=== PATIENT | female | born 1960 | race Caucasian/White ===

== ENCOUNTER 2018-11-02 16:43 | Observation (INO) | payer OTHER ==
[2018-11-02 18:00] LABS: Absolute Monocytes 0.6 K/uL (0.1-1.3); Absolute Neutrophil 5.9 K/uL (1.8-8.0); Basophils % 0.8 % (0-1.3); Eosinophils % 2.5 % (0-4.4); Hematocrit 37.2 % (36.0-45.0); Lymphocytes % 22.8 % (15.3-44.8); MPV 8.7 fL (7.6-11.3); Monocytes % 7.1 % (3.3-12.3); RBC Red Blood Cell Count 3.99 M/uL (3.86-4.86)
--- NOTE | 2018-11-02 18:18 | RAD REPORT ---
EXAM DESCRIPTION: CT - Head Brain Wo Cont - 11/02/2018 6:11 pm CLINICAL HISTORY: headache Headache, drowsiness, syncope COMPARISON: <Comparisons> TECHNIQUE: All CT scans are performed using dose optimization technique as appropriate and may inclu de automated exposure control or mA/KV adjustment according to patient size. FINDINGS: No intracranial hemorrhage, hydrocephalus or extra-axial fluid collection.No areas of brai n edema or evidence of midline shift. The paranasal sinuses and mastoids are clear. The calvarium is intact. IMPRESSION: No acute intracranial abnormality.
[2018-11-02 18:26] LABS: Albumin 3.9 g/dL (3.4-5.0); Bilirubin Total 0.2 mg/dL (0.2-1.0); Magnesium 2.2 mg/dL (1.8-2.4); Potassium 3.8 mmol/L (3.5-5.1); Protein, Total 7.6 g/dL (6.4-8.2); Thyroid Stimulating Hormone 1.53 uIU/mL (0.360-3.740)
--- NOTE | 2018-11-02 18:56 | ER ---
Nurse's Notes [facility] Name: Pastora Amador Age: 58 yrs Sex: Female : 1960 Arrival Date: 11/02/2018 Time: 16:48 Bed 15 Private MD: Diagnosis: Syncope and collapse;Headache;Dizziness and giddiness Presentation: 11/02 17:02 Presenting complaint: Direct admit from Dr. Jones for near syncope, headache, and hb dizziness. Pt reports low back pain and dizziness x 1 week, near syncopal episode at Dr. Jones's office today. Transition of care: patient was not received from another setting of care. Onset of symptoms is unknown. Risk Assessment: Do you want to hurt yourself or someone else? Patient reports no desire to harm self or others. Care prior to arrival: None. 17:02 Method Of Arrival: Wheelchair hb 17:02 Acuity: EDY 3 hb Historical: - Allergies: 17:07 Sulfa (Sulfonamide Antibiotics); hb - Immunization history:: Adult Immunizations up to date. - Social history:: Smoking status: Patient/guardian denies using tobacco. - Ebola Screening: : No symptoms or risks identified at this time. Vital Signs: 17:05 BP 173 / 91; Pulse 74; Resp 16; Temp 97.4; Pulse Ox 99% on R/A; Weight 112.49 kg; hb Height 5 ft. 1 in. (154.94 cm); Pain 8/10; 17:05 Body Mass Index 46.86 (112.49 kg, 154.94 cm) hb ED Course: 16:48 Patient arrived in ED. rg4 17:04 Triage completed. hb 17:07 Arm band placed on right wrist. hb 17:10 Xiomara Cates MD is Attending Physician. ma2 17:10 Inserted saline lock: 20 gauge in right antecubital area, using aseptic technique. ae4 Blood collected. 18:52 Gerson Jones MD is Hospitalizing Provider. dw Administered Medications: No medications were administered Outcome: 18:55 Decision to Hospitalize by Provider. dw Signatures: Jo Ann Murphy RN RN dw Baxter, Heather, RN RN Gretchen Olson rg4 Xiomara Cates MD MD ma2 Andres, Festus, RN RN ae4
[2018-11-02 20:10] VITALS: BMI 46.4
[2018-11-02] MEDS ORDERED: ENOXAPARIN 40 MG/0.4 ML SQ ONE (20:55)
[2018-11-02] MEDS ORDERED: ACETAMINOPHEN 500 MG PO PRN (21:00)
[2018-11-02 21:31] LABS: Urine Appearance CLEAR; Urine Bilirubin NEGATIVE (NEG); Urine Blood NEGATIVE (NEG); Urine Color YELLOW; Urine Glucose NEGATIVE (NEG); Urine Protein NEGATIVE (NEG); Urine Urobilinogen 0.2 mg/dL (0.2-1.0); Urine pH 5.5 (5.0-7.0)
[2018-11-02 22:13] LABS: Urine Bacteria >50 /HPF (<20); Urine Culture Reflex Order REFLEXED; Urine RBC <5 /HPF (NONE SEEN)
--- NOTE | 2018-11-03 04:03 | HP ---
Date of Admission: 11/02/2018 Chief Complaint: Not feeling good. History Of Present Illness: Ms. Amador is a very pleasant female patient, came into our office today after she called our office requesting appointment. She was asked to come in as she reported that f or last 1 week, she is not feeling good. The patient describes having pain in her lower back and chele ateral lateral hip area, and some pain in both legs behind her knees and both lower legs below the kn ee. Denies any fall or injury. She has been having hard time walking in last few days. She has jeffrey oing intermittent diarrhea problem, which is nothing new and she has been seeing data scientist, Dr. Pritchett, for that. Denies any abdominal pain, nausea, vomiting. The patient reported that she has been feeling dizzy in last few days when she gets up. She says her blood pressure has gone up somewh at with the change in the blood pressure medication that we made last week. We stopped her amlodipin e because of the leg swelling problem and started her on diuretic, triamterene/HCTZ. Blood pressure at home has been around systolic blood pressure 140, diastolic around 80 range. When she was sitting in the waiting room at office and when office staff called her name to come back to the exam room, s he did not respond to office staff and she stood up, was staring and kind of unresponsive just for a brief time, but did not have any fall or injury. She was unsteady on her feet and required assistanc e, and I saw that problem even while I was trying to help her in the room. She was not able to get u p on exam table. She is having occasional headache lately in last few days. Considering all this dr quispe change in last 1 week, after I examined her, I recommended admission to the hospital for [facility] for further evaluation and management of this problem, and the patient and her , they we re agreeable and after all arrangements completed, she was admitted to the hospital. Past Medical History: Hyperlipidemia, restless leg syndrome, hypertension, sleep apnea, insomnia, os teopenia, osteoarthritis at multiple sites, peripheral neuropathy, and leg edema. Past Surgical History: Carpal tunnel release, hysterectomy, , and neck surgery. Allergies: SULFA CAUSING SKIN IRRITATION. Family History: Significant for hypertension, stroke, COPD, fibromyalgia, congestive heart failure, atrial fibrillation. Social History: Negative for smoking and alcohol use. Review of Systems: [employer]: Positive for dizziness, headache, and near syncope up today. Musculoskeletal: Back pain and l eg pain as mentioned above. All other systems reviewed and negative. Medications: List reviewed. Physical Examination: Vital Signs: At office, vital signs included height 5 feet, weight 248 pounds. Blood pressure was 1 47/79, repeat blood pressure in the office 140/80, temperature 98.7, pulse 66, respiratory rate 15. General: Awake, alert, oriented, not in distress. HEENT: Head atraumatic, normocephalic. Conjunctivae nonerythematous. Sclerae white. Mouth: No th gordon or edema noted. Ears/Nose: No mass, lesion, discharge noted. Neck: Supple. No JVD, lymph nodes, bruit, thyromegaly noted. Lungs: Bilateral good equal air entry. Clear to auscultation. No rhonchi. No rales. Heart: Normal heart sounds. No murmur or gallop. Abdomen: Soft, bowel sounds normal. No guarding, rigidity, tenderness, mass, hepatosplenomegaly, di stention, or bruit noted. Extremities: No leg edema. No calf tenderness. Skin: No rash, ulcer, cellulitis. Lymphatics: No lymph node enlargement in neck, supraclavicular, infraclavicular region. Chest: Unremarkable. External Genitalia: Deferred. Rectal: Deferred. [employer]: The patient is awake, alert, oriented, not in distress. No focal neurological deficit. She do es require assistance to get up from chair to get up and walk. She was not able to get up on the exa m table. She is unsteady on her feet and we are not sure whether it is because of her pain in her ba ck or any other etiology. Laboratory Data: After she was admitted to the hospital, stat blood work showing white count 8.9, he moglobin 11, gone to 12.3, and platelets 306. Sodium 144, potassium 3.8, chloride 114, bicarb 24, BU N 21, creatinine 0.90, glucose 99. Liver function tests normal. TSH 1.53. CAT scan of the head neg ative for any acute findings and this was without contrast. Impression: 1.Near syncope. 2.Headache. 3.Dizziness. 4.Hypertension. 5.Hyperlipidemia. 6.Restless legs syndrome. 7.Sleep apnea. 8.Primary insomnia. 9.Back pain. 10.Osteopenia. 11.Gout. 12.Osteoarthritis at multiple sites. 13.Peripheral neuropathy. Plan: Admit the patient to hospital for further evaluation and management of this problem. The addie ent is appropriate for observation. We will continue home medications per order. I will go ahead an d order further imaging study tomorrow, which will be MRI and we will consult physical therapy. I wi ll see her tomorrow morning for followup and we will monitor overnight for any other problems as we a re not absolutely clear on the etiology of her presenting complaints at this point, and details were discussed with the patient and her at the office. DVT prophylaxis will be given per order. GERRY/NATALY Voice ID: [id number]
[2018-11-03] MEDS: CEFTRIAXONE/SWI 1gm 1 GM/10 ML SYR IV SCH ×2 (08:34→21:52)
[2018-11-03] MEDS: TOPIRAMATE 100 MG PO SCH ×2 (09:00→21:47)
[2018-11-03] MEDS: NAPROXEN SODIUM 220 MG PO SCH ×3 (09:00→21:00)
[2018-11-03] MEDS: RANITIDINE 150 MG PO SCH ×2 (09:00→21:46)
[2018-11-03 09:07] LABS: Folic Acid, (Folate) > 20.0 ng/mL (3.1-17.5)
--- NOTE | 2018-11-03 10:03 | RAD REPORT ---
EXAM DESCRIPTION: XR C Spine W Obliques CLINICAL HISTORY: 58 years Female osteoarthritis TECHNIQUE: Five views of the cervical spine are provided. COMPARISON: No prior exams provided for comparison. FINDINGS: There is no visualized acute cervical fracture or spondylolisthesis. There is mild to mode rate multilevel degenerative disc disease and uncovertebral arthrosis without aggressive osseous lesi on. Mild right neural foraminal narrowing at C5-C6. No prevertebral soft tissue swelling. The visualized lung apices are clear. IMPRESSION: No acute cervical spine injury. Electronically signed by: Kendal Landry MD 11/02/2018 10:25 PM CDT Due to temporary technical issues with the PACS/Fluency reporting system, reports are being signed by the in house radiologist as a courtesy to ensure prompt reporting. The interpreting radiologist is f ully responsible for the content of the report.
--- NOTE | 2018-11-03 10:04 | RAD REPORT ---
EXAM DESCRIPTION: XR Spine Lumbar W obliques CLINICAL HISTORY: 58 years Female back pain TECHNIQUE: Six views of the lumbar spine were submitted. COMPARISON: No prior exams provided for comparison. FINDINGS: There are five true lumbar vertebral bodies. There is no acute lumbar fracture. There is m ild to moderate multilevel degenerative disc disease most pronounced at L3-L4 and L4-L5. Severe lower lumbar facet arthrosis. Grade 1 anterolisthesis of L4 on L5. The sacroiliac joints are unremarkable. No aggressive osseous lesion. IMPRESSION: Chronic multilevel degenerative changes in the lumbar spine most pronounced at L4-L5. No acute fracture. Electronically signed by: Kendla Landry MD 11/02/2018 10:27 PM CDT Due to temporary technical issues with the PACS/Fluency reporting system, reports are being signed by the in house radiologist as a courtesy to ensure prompt reporting. The interpreting radiologist is f ully responsible for the content of the report.
[2018-11-03] MEDS: ASPIRIN 81 MG PO SCH (11:06)
[2018-11-03] MEDS: TRIAMTERENE HCTZ PO SCH (11:08)
[2018-11-03] MEDS ORDERED: ENOXAPARIN 40 MG/0.4 ML SQ SCH (17:00)
[2018-11-04] MEDS: NAPROXEN SODIUM 220 MG PO SCH (05:59)
[2018-11-04] MEDS: RANITIDINE 150 MG PO SCH (08:51)
[2018-11-04] MEDS: TRIAMTERENE HCTZ PO SCH (08:52)
[2018-11-04] MEDS: ASPIRIN 81 MG PO SCH (08:53)
[2018-11-04] MEDS: TOPIRAMATE 100 MG PO SCH (08:54)
[2018-11-04] MEDS: CEFTRIAXONE/SWI 1gm 1 GM/10 ML SYR IV SCH (08:58)
[2018-11-04 11:23] VITALS: O2SAT 98
--- NOTE | 2018-11-04 13:24 | RAD REPORT ---
EXAM DESCRIPTION: MRI - Brain W/Wo Cont - 11/03/2018 9:13 pm CLINICAL HISTORY: Ataxia COMPARISON: November 02, [address] TECHNIQUE: Axial, sagittal, and coronal magnetic images of the brain were obtained. 20 cc MultiHance administered intravenously FINDINGS: Several areas of increased signal are present within predominantly the deep white matter b ilaterally. Largest measure 7 millimeters. If these areas do not enhance. The ventricles are normal in caliber. Diffusion-weighted sequences do not demonstrate evidence of an acute infarction. An extra-axial fluid collection is not noted. Fluid within the sinuses/mastoids is not seen IMPRESSION: Mild to moderate signal within prominently deep white matter bilaterally may represent i schemic changes secondary to small vessel disease. A demyelinating process can also result in this ap pearance.
--- NOTE | 2018-11-04 13:36 | RAD REPORT ---
EXAM DESCRIPTION: MRI - Lumbar Spine Wo Con - 11/03/2018 9:14 pm CLINICAL HISTORY: Ataxia and radiculopathy COMPARISON: None. TECHNIQUE: Sagittal T1, T2 and STIR weighted sequences were obtained. Axial T1 and T2 sequences were obtained through the lumbar disc levels. FINDINGS: Some of the images are degraded by patient motion artifact Mild to moderate anterior subluxation of L3 on L4 and L4 on L5. Mild spondylosis L1-2 Small disc bulge L2-3. Mild ligamentum flavum and facet hypertrophy. Mild narrowing of the neural for christopher bilaterally. Small disc bulge, ligamentum flavum and facet hypertrophy L3-4. Thecal sac measures 10 millimeters. M ild to moderate narrowing of the neural foramina Disc bulge, ligamentum flavum and facet hypertrophy L4-5. Soft tissue fills the left neural foramina. Mild spondylosis L5-S1 IMPRESSION: Soft tissue fills the left neural foramina at L4-5. This is suspected to be a combinatio n of the disc herniation and facet hypertrophy. It is recommended that the patient have an MRI with c ontrast for further evaluation.
--- NOTE | 2018-11-04 13:44 | RAD REPORT ---
EXAM DESCRIPTION: MRI - C Spine Wo Cont - 11/03/2018 9:14 pm CLINICAL HISTORY: Radiculopathy COMPARISON: 2014 TECHNIQUE: Magnetic resonance imaging of the cervical spine was obtained with coronal and sagittal r econstruction FINDINGS: Some images are degraded by patient motion artifact C2-3 is unremarkable. Small central disc herniation C3-4. Small to moderate central disc herniation C4-5 Mild spondylosis C5-6. Disc bulge and osteophytes C6-7 resulting in moderate narrowing of the left and mild narrowing of the right neural foramina C7-T1 unremarkable Evaluation of the spinal cord is limited secondary to patient motion artifact. No gross abnormality i s suspected. . IMPRESSION: Small central disc herniations C3-4 Small to moderate central disc herniation C4-5 Spondylosis C6-7 resulting in moderate left foraminal stenosis
[2018-11-04 14:57] VITALS: BP 120/64; TEMP 97.6
--- NOTE | 2018-11-04 18:29 | RAD REPORT ---
EXAM DESCRIPTION: MRI - Spine Lumbar W/Cont - 11/04/2018 3:12 pm CLINICAL HISTORY: f/u of lumbar mri Radiculopathy, back pain COMPARISON: Lumbar Spine Wo Con dated 11/03/2018 FINDINGS: Prominent facet hypertrophy is present on the left at the L4-5 level. There is mild enhanc ement of the exiting nerve root at this level, which is typically not a pathologic finding. No pathologic enhancement is seen to suggest tumor or infection throughout the lumbar levels. IMPRESSION: No pathologic enhancement seen to suggest tumor or infection.
--- NOTE | 2018-11-05 02:00 | PN ---
Date of Progress Note: 11/03/2018 Subjective: The patient was seen this morning for followup. She continues to have some headache pro blem and lower back pain radiating to her leg. Denies any other new complaints. The patient reporte d today that about 20 years ago, she had a grand mal and petit mal seizure, and she was on anticonvul quintin medication, has not taken any such medication for last 15 years, and with near syncopal episode she had at office yesterday, she is concerned about that. Her CAT scan of the head was negative. Objective: Vital Signs: Reviewed. HEENT: Unremarkable. Lungs: Clear to auscultation. Heart: Sounds normal. Abdomen: Soft. Bowel sounds normal. No guarding, rigidity, tenderness, distention. Extremities: No leg edema. Laboratory Data: Urinalysis; 2+ leukocyte esterase, bacteria more than 50, wbc's 10 to 20. Impression: 1.Urinary tract infection, present upon admission. 2.Headache. 3.Lumbar radiculopathy. 4.Hypertension. Plan: We will go ahead and start the patient on IV antibiotics. Follow up on urine culture results. MRI of brain with contrast and MRI of cervical spine and lumbar spine without contrast was ordered today. We will follow up on the results. Consult Dr. Marc from Neurology Service and EEG was ordered. Details and plan of treatment discussed with the patient. GERRY/MODL Voice ID: [id number] Report ID: [id number]
--- NOTE | 2018-11-06 14:04 | DS ---
Date of Discharge: 11/04/2018 Disposition: Discharged to go home. Physical Examination: HEENT: Unremarkable. Lungs: Clear to auscultation. Heart: Sounds normal. Abdomen: Soft, bowel sounds normal. No guarding, rigidity, tenderness, or distention. Extremities: No leg edema. Discharge Medications And Instructions: 1.Continue all prior home medications. 2.Take Cipro 500 mg twice a day for 1 week and prednisone 10 mg tablet. The patient to take 3 table ts daily for 3 days, then 2 tablets daily for 3 days, then 1 tablet daily for 3 days, then stop. 3.Follow up at my office in 1 week. Hospital Course: Ms. Amador is a very pleasant female patient, came into our office not feeling good , and after she was evaluated, she was admitted to the hospital. Please see dictated H and P for mor e information. The patient was admitted to the hospital with near syncope, headache, dizziness. Aft er she was admitted, routine blood work was done which was unremarkable. CAT scan of the brain was n egative for any acute intracranial changes. Neurology consultation was obtained from Dr. Marc. We did order EEG, which was done, result was pending by the time we discharged her, and we will follo w up on outpatient basis. MRI of the brain was done to rule out any underlying stroke, and it came b ack negative for any acute intracranial changes. We also did MRI of cervical spine and lumbar spine because of her symptoms as noted in history and physical exam. Her MRI of the cervical spine showed a couple of small herniated disks with changes of cervical spondylosis. An MRI of the lumbar spine a lso showed 1 herniated disk, but there was some area of abnormality that radiologist suggested to do MRI of lumbar spine with contrast to rule out any tumor, and this particular test was done, and it wa s negative for any kind of growth or tumor. Her urinalysis was abnormal consistent with urinary trac t infection. She was given IV Rocephin in the hospital, and I will follow up on the culture result, which was pending at the time of discharge, and she was sent home with empiric oral antibiotics Cipro . Depending on how she does on outpatient basis, we will make a decision regarding referring her to neurosurgeon. Final Diagnoses: 1.Near syncope. 2.Urinary tract infection. 3.Lumbar radiculopathy. 4.Cervical spondylosis. 5.Headache. 6.Dizziness. 7.Hypertension. 8.Hyperlipidemia. 9.Restless legs syndrome. 10.Sleep apnea. 11.Primary insomnia. 12.Osteopenia. 13.Gout. 14.Osteoarthritis, multiple sites. 15.Peripheral neuropathy. GERRY/MODL Voice ID: [id number] Report ID: [id number]
--- NOTE | 2018-11-10 09:09 | EEG ---
CHART: [id number] TEST ID#: [id number] DATE OF STUDY: 11/03/2018 THE EEG WAS RECORDED PORTABLE IN THE PATIENTS ROOM ON A 17 CHANNEL MACHINE. ELECTRODES WERE APPLIED IN THE USUAL MANNER USING THE INTERNATIONAL 10-20 SYSTEM. THE WAKING BACKGROUND RHYTHM IN THIS RECORD CONSISTS OF WELL DEVELOPED AND WELL ORGANIZED WAVES OF 9.5 HZ., MAXIMAL IN THE POSTERIOR HEAD REGIONS WHICH ATTENUATE NORMALLY WITH EYE OPENING. LOW-VOLTAGE 18-22 HZ ACTIVITY IS EXPRESSED IN THE FRONTAL REGIONS. THERE ARE NO FOCAL OR LATERALIZING FEATURES. NO EPILEPTIFORM ACTIVITY APPEARS. SLEEP OCCURRED NATURALLY. IN ADDTION NORMAL SLEEP PATTERNS ARE PRESENT. HYPERVENTILATION WAS NOT PERFORMED. PHOTIC STIMULATION PRODUCED FAIR DRIVING BILATERALLY. IMPRESSION: NORMAL EEG FOR THE AGE OF THE PATIENT IN [place], DROWSINESS AND SLEEP.
== END 2018-11-04 16:03 | disposition home or self-care (01) ==
LOC: ER 16:43 → ERHOLD 16:44 → 2ND 19:11
PROVIDERS: ADMIT Internal Medicine; ATTEND Internal Medicine
DX: R55 Syncope and collapse (principal); N39.0 Urinary tract infection, site not specified; M51.16 Intervertebral disc disorders with radiculopathy, lumbar region; M47.812 Spondylosis without myelopathy or radiculopathy, cervical region; M50.31 Other cervical disc degeneration, high cervical region; M48.8X6 Other specified spondylopathies, lumbar region; R51 Headache; R42 Dizziness and giddiness; I10 Essential (primary) hypertension; E78.5 Hyperlipidemia, unspecified; G25.81 Restless legs syndrome; G47.30 Sleep apnea, unspecified; F51.01 Primary insomnia; M85.80 Other specified disorders of bone density and structure, unspecified site; M10.9 Gout, unspecified; M15.9 Polyosteoarthritis, unspecified; G62.9 Polyneuropathy, unspecified
CPT/HCPCS: 36415; 70450; 70553; 72050; 72110; 72141; 72148; 72149; 80053; 81001; 82607; 82746; 83605; 83735; 84145; 84443; 85025; 87077; 87086; 87088; 87186; 95819; 97163; 99283; A9577; G0378; J0696; J1650

== ENCOUNTER 2021-12-13 14:50 | Emergency (ER) | payer OTHER ==
--- NOTE | 2021-12-13 15:56 | RAD REPORT ---
EXAM DESCRIPTION: Lucas Single View12/13/2021 3:40 pm CLINICAL HISTORY: Shortness of breath COMPARISON: 2019 FINDINGS: The lungs appear clear of acute infiltrate. The heart is normal size IMPRESSION: No acute abnormalities displayed
[2021-12-13 15:57] LABS: Absolute Lymphocytes (CBC) 1.6 K/uL (0.7-4.9); Hematocrit 37.6 % (36.0-45.0); Lymphocytes % 18.8 % (15.3-44.8); MCV 94.1 fL (80-100); MPV 7.7 fL (7.6-11.3)
[2021-12-13 16:11] LABS: ALT/SGPT 19 U/L (12-78); AST/SGOT 14 U/L (15-37); Albumin 3.5 g/dL (3.4-5.0); Alkaline Phosphatase 130 U/L (45-117); BUN Blood Urea Nitrogen 27 mg/dL (7-18); Bicarbonate 25 mmol/L (21-32); Bilirubin Total 0.3 mg/dL (0.2-1.0); Glomerular Filtration Rate 51 ml/min (=/>90); Glucose Level 133 mg/dL (74-106); NT PRO-BNP 295 pg/mL (<125); Potassium 3.8 mmol/L (3.5-5.1); Protein, Total 7.4 g/dL (6.4-8.2); Sodium Level 139 mmol/L (136-145); Troponin High Sensitivity 9.5 pg/mL (<58.9)
[2021-12-13 16:19] LABS: Bilirubin Direct < 0.1 mg/dL (0-0.2)
--- NOTE | 2021-12-13 17:22 | RAD REPORT ---
EXAM DESCRIPTION: USExtrem Venous W Compress Bil12/13/2021 5:09 pm CLINICAL HISTORY: Leg swelling COMPARISON: 2019 FINDINGS: The common femoral, superficial femoral, popliteal and posterior tibial veins bilaterally are compressible and demonstrate augmentation. Doppler demonstrates good flow. Grayscale, color and spectral analysis performed on all vessels IMPRESSION: No evidence of deep venous thrombosis involving either lower extremity.
--- NOTE | 2021-12-13 17:44 | RAD REPORT ---
EXAM DESCRIPTION: CT - Chest For Pe Angio - 12/13/2021 5:32 pm CLINICAL HISTORY: sob COMPARISON: None. TECHNIQUE: Dynamically enhanced axial 3 mm thick images of the chest were obtained during administra tion of <100> mL Isovue 370 IV contrast. Coronal and oblique reconstruction images were generated and reviewed. Exam utilizes a protocol for optimal evaluation of pulmonary arterial tree. Maximum intensity projections 3D imaging was utilized All CT scans are performed using dose optimization technique as appropriate and may include automated exposure control or mA/KV adjustment according to patient size. FINDINGS: A pulmonary embolus is not seen. A thoracic aortic aneurysm is not noted. A pleural effusion is not seen. A pericardial effusion is not seen. A lung consolidation is not present. Aberrant right subclavian artery IMPRESSION: Negative for a pulmonary embolism.
--- NOTE | 2021-12-13 18:00 | ER ---
Nurse's Notes [facility] Name: Pastora Amador Age: 61 yrs Sex: Female : 1960 Arrival Date: 12/13/2021 Time: 14:51 Bed 20 Private MD: Nina Jones C Diagnosis: Essential (primary) hypertension Presentation: 12/13 15:25 Chief complaint: Patient states: Patient reports leg swelling, sob for years worse x 2 jg9 months, elevated bp this week. Coronavirus screen: Vaccine status: Patient reports receiving the 2nd dose of the covid vaccine. Ebola Screen: Patient negative for fever greater than or equal to 101.5 degrees Fahrenheit, and additional compatible Ebola Virus Disease symptoms Patient denies exposure to infectious person. Patient denies travel to an Ebola-affected area in the 21 days before illness onset. Initial Sepsis Screen: Does the patient meet any 2 criteria? No. Patient's initial sepsis screen is negative. Does the patient have a suspected source of infection? No. Patient's initial sepsis screen is negative. Risk Assessment: Do you want to hurt yourself or someone else? Patient reports no desire to harm self or others. Onset of symptoms is unknown. 15:25 Method Of Arrival: Ambulatory 9 15:25 Acuity: EDY 3 jg9 Triage Assessment: 15:25 General: Appears in no apparent distress. Behavior is calm, cooperative. Pain: jg9 Complains of pain in anterior aspect of left shoulder and back Pain currently is 5 out of 10 on a pain scale. Quality of pain is described as. 15:29 Respiratory: Reports shortness of breath at rest on exertion Onset: The jg9 symptoms/episode began/occurred gradually, the patient has mild shortness of breath. Historical: - Allergies: 15:27 Sulfa (Sulfonamide Antibiotics); jg9 - Home Meds: 15:27 allopurinol 300 mg Oral tab 1 tab once DAILY. pt reports that her PCP told her to only jg9 take this medicaitno every other day, but instead has been taking half a dose daily. [Active]; amoxicillin 875 mg Oral tab 1 tab every 12 hours [Active]; baclofen 20 mg Oral tab 1 tab daily [Active]; guanfacine 2 mg Oral tab 1 tab twice a day [Active]; irbesartan 300 mg Oral tab 1 tab once daily [Active]; [place] 5-325 mg Oral tab TID prn [Active]; simvastatin 20 mg Oral tab 1 tab once daily [Active]; topiramate 150 mg Oral CSpX 1 cap once daily [Active]; - PMHx: 15:27 chronic back pain; Fibromyalgia; Gout; High Cholesterol; Hypertension; restless leg jg9 syndrome; - Immunization history:: Adult Immunizations up to date. - Social history:: Smoking status: Patient denies any tobacco usage or history of. Screenin:29 Abuse screen: Denies threats or abuse. Denies injuries from another. Nutritional jg9 screening: No deficits noted. Tuberculosis screening: No symptoms or risk factors identified. Fall Risk None identified. Assessment: 15:29 Cardiovascular: No deficits noted. Rhythm is sinus rhythm. Respiratory: Airway is jg9 patent Trachea Respiratory effort is even, unlabored, Breath sounds are diminished bilaterally. 15:29 General: Appears in no apparent distress. comfortable, Behavior is calm, cooperative. em6 Pain: Complains of pain in low back area, right leg and left leg. Neuro: Dahl Agitation-Sedation Scale (RASS): 0 - Alert and Calm Level of Consciousness is awake, alert, obeys commands, Oriented to person, place, time, situation, Reports dizziness, headache frontal area. Cardiovascular: Reports shortness of breath, Heart tones S1 S2 present Capillary refill < 3 seconds Patient's skin is warm and dry. Chest pain is denied. Respiratory: Reports shortness of breath. GI: No signs and/or symptoms were reported involving the gastrointestinal system. : No signs and/or symptoms were reported regarding the genitourinary system. EENT: No signs and/or symptoms were reported regarding the EENT system. Derm: No signs and/or symptoms reported regarding the dermatologic system. Musculoskeletal: Reports bilateral swelling to lower extremities. 16:30 Reassessment: No changes from previously documented assessment. Patient and/or family em6 updated on plan of care and expected duration. Pain level reassessed. Patient is alert, oriented x 3, equal unlabored respirations, skin warm/dry/pink. 17:00 Reassessment: No changes from previously documented assessment. Patient and/or family em6 updated on plan of care and expected duration. Pain level reassessed. Patient is alert, oriented x 3, equal unlabored respirations, skin warm/dry/pink. 18:00 Reassessment: No changes from previously documented assessment. Patient and/or family em6 updated on plan of care and expected duration. Pain level reassessed. Patient is alert, oriented x 3, equal unlabored respirations, skin warm/dry/pink. provider at bedside discussing plan of care.. Vital Signs: 15:25 BP 134 / 58; Pulse 89; Resp 22 S; Temp 97.7(TE); Pulse Ox 99% on R/A; Weight 125.65 kg jg9 (R); Height 5 ft. 0 in. (152.40 cm); Pain 5/10; 16:30 BP 127 / 59; Pulse 73; Resp 17; Pulse Ox 97% on R/A; em6 18:02 BP 128 / 52; Pulse 72; Pulse Ox 98% on R/A; em6 15:25 Body Mass Index 54.10 (125.65 kg, 152.40 cm) jg9 ED Course: 14:51 Patient arrived in ED. am2 14:51 Omero Alatorre MD is Private Physician. am2 14:51 Nina Jones MD is Private Physician. am2 14:52 [facility] Acosta [facility]C [facility]. kb 14:52 Juan García DO is Attending Physician. kb 15:27 Triage completed. jg9 15:29 Arm band placed on right wrist. jg9 15:29 Patient has correct armband on for positive identification. Bed in low position. Call jg9 light in reach. Side rails up X 1. 15:42 XRAY Chest (1 view) In Process Unspecified. EDMS 15:47 Inserted saline lock: 20 gauge in right forearm, using aseptic technique. Blood mb7 collected. 15:50 Pete Head, RN is Primary Nurse. jd3 17:11 US Extremity Venous W Compression Jagjit In Process Unspecified. EDMS 17:34 CT Chest For PE Angio In Process Unspecified. EDMS 18:39 No provider procedures requiring assistance completed. IV discontinued, intact, em6 bleeding controlled, No redness/swelling at site. Pressure dressing applied. Administered Medications: No medications were administered Medication: 16:55 VIS not applicable for this client. em6 Outcome: 18:00 Discharge ordered by . kb 18:38 Discharged to home via wheelchair, with family. em6 18:38 Condition: stable 18:38 Discharge instructions given to patient, Instructed on discharge instructions, follow up and referral plans. Demonstrated understanding of instructions, follow-up care. 18:40 Patient left the ED. em6 Signatures: Dispatcher [employer] EDMS Tino Acostaistin, GLUE CLAMP OPERATOR-C GLUE CLAMP OPERATOR-Ckb Dorie Farnsworth am2 Pete Head RN RN jd3 Lisa Goldsmith mb7 Lilly Serna RN RN jg9 Kacy Pires RN RN em6 Corrections: (The following items were deleted from the chart) 16:54 15:40 General: Appears in no apparent distress. comfortable, Behavior is calm, em6 cooperative, em6 16:54 15:40 Pain: Complains of pain in low back area, right leg and left leg em6 em6 16:54 15:40 Neuro: Dahl Agitation-Sedation Scale (RASS): 0 - Alert and Calm Level of em6 Consciousness is awake, alert, obeys commands, Oriented to person, place, time, situation, Reports dizziness, headache frontal area, em6 16:54 15:40 Cardiovascular: Reports shortness of breath, Heart tones S1 S2 present Capillary em6 refill < 3 seconds Patient's skin is warm and dry. Edema is absent. Chest pain is denied em6 16:54 15:40 Respiratory: Reports shortness of breath em6 em6 16:54 15:40 GI: No signs and/or symptoms were reported involving the gastrointestinal system. em6 em6 16:54 15:40 : No signs and/or symptoms were reported regarding the genitourinary system. em6em6 16:54 15:40 EENT: No signs and/or symptoms were reported regarding the EENT system. em6 em6 16:54 15:40 Derm: No signs and/or symptoms reported regarding the dermatologic system. em6 em6 16:54 15:40 Musculoskeletal: No signs and/or symptoms reported regarding the musculoskeletal em6 system. em6 16:54 15:40 Respiratory: Reports shortness of breath Airway is patent Respiratory: Reports em6 shortness of breath Airway is patent em6 16:54 15:40 Respiratory: em6 em6 16:54 15:40 Reassessment: No changes from previously documented assessment. Patient and/or em6 family updated on plan of care and expected duration. Pain level reassessed. em6 12/14 09:12/13 15:29 Cardiovascular: Reports shortness of breath, Heart tones S1 S2 present em6 Capillary refill < 3 seconds Patient's skin is warm and dry. Edema is absent. Chest pain is denied em6 12/14 09:02 12/13 15:29 Musculoskeletal: No signs and/or symptoms reported regarding the em6 musculoskeletal system. em6
--- NOTE | 2021-12-13 18:00 | EDPHYS ---
Physician Documentation [facility] Name: Pastora Amador Age: 61 yrs Sex: Female : 1960 Arrival Date: 12/13/2021 Time: 14:51 Bed 20 Private MD: Nina Jones C ED Physician Juan García HPI: 12/13 23:43 This 61 yrs old Female presents to ER via Ambulatory with complaints of Leg Swelling, kb Shortness Of Breath, High Blood Pressure. 23:44 The patient has shortness of breath with light activity. Onset: The symptoms/episode kb began/occurred years, but worse over the last few months. Duration: The symptoms are continuous. The patient's shortness of breath is aggravated by exertion, is alleviated by rest. Associated signs and symptoms: The patient has no apparent associated signs or symptoms. Severity of symptoms: At their worst the symptoms were moderate in the emergency department the symptoms have improved. The patient has experienced similar episodes in the past. The patient has not recently seen a physician. Pt reports shortness of breath on exertion and lower extremity swelling for years, but worse over the last 2 months. States she has been seen by Dr Jones and ssrs developer for this multiple times but nothing has been found. States she has had an echo that was normal. Wind Instrument Repairer told her there was nothing wrong with her heart. States she was talking to someone today and told them about her symptoms so they suggested she come get checked for a blood clot because she has a bruise on her leg. Also reports high blood pressure this week. States her ssrs developer has been changing her medication since August trying to find something that controls her blood pressure, but nothing has been able to help for long. Historical: - Allergies: 15:27 Sulfa (Sulfonamide Antibiotics); jg9 - Home Meds: 15:27 allopurinol 300 mg Oral tab 1 tab once DAILY. pt reports that her PCP told her to only jg9 take this medicaitno every other day, but instead has been taking half a dose daily. [Active]; amoxicillin 875 mg Oral tab 1 tab every 12 hours [Active]; baclofen 20 mg Oral tab 1 tab daily [Active]; guanfacine 2 mg Oral tab 1 tab twice a day [Active]; irbesartan 300 mg Oral tab 1 tab once daily [Active]; [place] 5-325 mg Oral tab TID prn [Active]; simvastatin 20 mg Oral tab 1 tab once daily [Active]; topiramate 150 mg Oral CSpX 1 cap once daily [Active]; - PMHx: 15:27 chronic back pain; Fibromyalgia; Gout; High Cholesterol; Hypertension; restless leg jg9 syndrome; - Immunization history:: Adult Immunizations up to date. - Social history:: Smoking status: Patient denies any tobacco usage or history of. ROS: 23:43 Constitutional: Negative for fever, chills, and weight loss. kb 23:43 Cardiovascular: Positive for edema. 23:43 Respiratory: Positive for dyspnea on exertion. 23:43 All other systems are negative. Exam: 23:43 Constitutional: This is a well developed, well nourished patient who is awake, alert, kb and in no acute distress. Head/Face: Normocephalic, atraumatic. ENT: Moist Mucous membranes Cardiovascular: Regular rate and rhythm with a normal S1 and S2. No gallops, murmurs, or rubs. No pulse deficits. Respiratory: Respirations even and unlabored. No increased work of breathing. Talking in full sentences Abdomen/GI: Soft, non-tender. No distention Skin: Warm, dry with normal turgor. Normal color. MS/ Extremity: Pulses equal, no cyanosis. Neurovascular intact. Full, normal range of motion. Neuro: Awake and alert, GCS 15, oriented to person, place, time, and situation. Moves all extremities. Normal gait. Psych: Awake, alert, with orientation to person, place and time. Behavior, mood, and affect are within normal limits. 23:43 ECG was reviewed by the Attending Physician. Vital Signs: 15:25 BP 134 / 58; Pulse 89; Resp 22 S; Temp 97.7(TE); Pulse Ox 99% on R/A; Weight 125.65 kg 9 (R); Height 5 ft. 0 in. (152.40 cm); Pain 5/10; 16:30 BP 127 / 59; Pulse 73; Resp 17; Pulse Ox 97% on R/A; em6 18:02 BP 128 / 52; Pulse 72; Pulse Ox 98% on R/A; em6 15:25 Body Mass Index 54.10 (125.65 kg, 152.40 cm) jg9 MDM: 14:54 Patient medically screened. kb 17:46 Data reviewed: vital signs, nurses notes. Data interpreted: Pulse oximetry: on room air kb is 97 %. Interpretation: normal. Counseling: I had a detailed discussion with the patient and/or guardian regarding: the historical points, exam findings, and any diagnostic results supporting the discharge/admit diagnosis, lab results, radiology results, the need for outpatient follow up, a ssrs developer, a family practitioner, to return to the emergency department if symptoms worsen or persist or if there are any questions or concerns that arise at home. 23:44 ED course: Pt has appt scheduled for next week with ssrs developer that has been kb adjusting htn medication trying to find one that better controls bp. . 12/13 15:13 Order name: Basic Metabolic Panel; Complete Time: 16:22 kb 12/13 15:13 Order name: CBC with Diff; Complete Time: 16:07 kb 12/13 15:13 Order name: D-Dimer; Complete Time: 16:18 kb 12/13 15:13 Order name: LFT's; Complete Time: 16:22 kb 12/13 15:13 Order name: NT PRO-BNP; Complete Time: 16:22 kb 12/13 15:13 Order name: Troponin HS; Complete Time: 16:22 kb 12/13 15:13 Order name: XRAY Chest (1 view); Complete Time: 16:07 kb 12/13 15:13 Order name: EKG; Complete Time: 15:14 kb 12/13 15:13 Order name: Cardiac monitoring; Complete Time: 15:50 kb 12/13 15:13 Order name: EKG - Nurse/Tech; Complete Time: 15:53 kb 12/13 15:13 Order name: IV Saline Lock; Complete Time: 15:47 kb 12/13 15:13 Order name: Labs collected and sent; Complete Time: 15:47 kb 12/13 15:13 Order name: US Extremity Venous W Compression Jagjit; Complete Time: 17:35 kb 12/13 16:13 Order name: CT Chest For PE Angio; Complete Time: 17:45 kb 12/13 15:13 Order name: O2 Per Protocol; Complete Time: 15:50 kb 12/13 15:13 Order name: O2 Sat Monitoring; Complete Time: 15:50 kb EC:43 Rate is 68 beats/min. Rhythm is regular. QRS [place] is Normal. IA interval is normal at kb 156 msec. QRS interval is normal at 80 msec. QT interval is normal at 444 msec. Administered Medications: No medications were administered Disposition: 18:56 Co-signature as Attending Physician, Juan García DO I was immediately available on-site ms3 in the Emergency Department for consultation in the care of the patient.. Disposition Summary: 12/13/21 18:00 Discharge Ordered Location: Home kb Condition: Stable kb Diagnosis - Essential (primary) hypertension kb Followup: kb - With: Emergency Department - When: As needed - Reason: Worsening of condition Followup: kb - With: Private Physician - When: 2 - 3 days - Reason: Recheck today's complaints, Continuance of care, Re-evaluation by your physician Discharge Instructions: - Discharge Summary Sheet kb - Hypertension, Adult, [id number] kb Forms: - Medication Reconciliation Form kb - Thank You Letter kb - Antibiotic Education kb - Prescription Opioid Use kb Signatures: Dispatcher [employer] EDLola Cooper, GM-Mandy WORRELL-Juan Fairbanks DO DO ms3 Lilly Serna, RN RN jg9
[2021-12-13 18:50] VITALS: TEMP 97.7
[2021-12-13 18:53] VITALS: BP 128/52; O2SAT 98
--- NOTE | 2021-12-16 13:55 | EKG ---
Test Date: 2021-12-13 Test Time: 16:05:46 [employer]p Public [employer]: ALEX MEASUREMENT RESULTS: Intervals: Rate: 68 AL: 156 QRSD: 80 QT: 418 QTc: 444 [place]: P: 35 AL: 156 QRS: 57 T: 43 INTERPRETIVE STATEMENTS: Normal sinus rhythm Normal ECG Compared to ECG 04/14/2017 09:24:37 Ventricular premature complex(es) no longer present Electronically Signed On 12-16-21 13:48:41 CDT by Guero Sparks
== END 2021-12-13 18:40 | disposition home or self-care (01) ==
LOC: ER 14:50
DX: I10 Essential (primary) hypertension (principal); R06.02 Shortness of breath; E78.00 Pure hypercholesterolemia, unspecified; Z88.2 Allergy status to sulfonamides
CPT/HCPCS: 85025; 80048; 36415; 85379; 80076; 84484; 83880; 71275; 71045; 93970; Q9967; 93005

== ENCOUNTER 2023-01-10 03:20 | Emergency (ER) | payer OTHER ==
--- OUTSIDE RECORDS SUMMARY | 2023-01-10 03:25 | XMS REPORT | Continuity of Care Document ---
:1960 Author Organization [facility] t Address [address] [place] [address] Care Team Providers Name Role Phone Gerson Jones MD Primary Care Physician Elliott Banks Attending Clinician Unavailable Julián Attending Clinician Unavailable Emmanuel Cho Attending Clinician Unavailable Naihd Leigh Attending Clinician Unavailable Anthony Frank Attending Clinician Unavailable Maryana Estes DO Attending Clinician JORGE PERSAUD Attending Clinician Unavailable FIDE WEST Attending Clinician Unavailable MD FIDE WEST Attending Clinician Unavailable Colby Solares Attending Clinician Unavailable Kendra Ohara Attending Clinician Unavailable Julián Admitting Clinician Unavailable Anthony Frank Admitting Clinician Unavailable Nahid Leigh Admitting Clinician Unavailable FIDE WEST Admitting Clinician Unavailable MD FIDE WEST Admitting Clinician Unavailable Physician, No Primary or Family Admitting Clinician UnavailKendra Vasquez Admitting Clinician Unavailable Payers Payer Name Policy Type Policy Number Effective Date Expiration Date Alisa patrick AETNA [id number] 2018 00:00:00 Problems Condition Condition Condition Status Onset Resolution Last Treating Co mments Source Name Details Category Date Date Treatment Clinician Date 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 Peripheral 3 Or thope neuropathy Neuropathy 00:00: di c 00 Sports [facility] Lumbar Lumbar Problem Active Deisy radiculopa Radiculopa 3- Or thope thy thy 00:00: dic 00 Sports Medic[facility] e Lumbar Lumbar Problem 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 00:00: dic 00 Sports Medicin e Acute low Acute Low Problem Active Aza nettie back pain Back Pain 3- Orth ope 00:00: dic 00 Sports Medicin e Pain of Pain of Problem Active Deisy left knee Left Knee 3 Orth ope joint Joint 00:00: dic 00 Sports Medicin e Replacemen Replacemen Problem Active 2018-06 A zalea t of right t of Right 2-10 Or thope knee joint Knee Joint 00:00: di c 00 Sports Medicin e Obesity Obesity Problem Active 2018-06 Deisy 1-25 Orthope 00:00: dic 00 Sports Medicin e Idiopathic Idiopathic Problem Active 2018-06 A zalea osteoarthr Osteoarthr 1-12 Or thope itis itis 00:00: dic 00 Sports Medicin e Hand pain Hand Pain Problem Active 2018-06 Aza nettie 0-15 Orthope 00:00: dic 00 Sports Medicin e Knee pain Knee Pain Problem Active 2018-06 Aza nettie 0-15 Orthope 00:00: dic 00 Sports Medicin e Tear of Tear of Problem Active 2018-06 Deisy medial Medial 0-08 Orthope meniscus Meniscus 00:00: dic of knee of Knee 00 Sports Medicin e Tear of Tear of Problem Active 2018-06 Deisy lateral Lateral 0-08 Orthope meniscus Meniscus 00:00: dic of knee of Knee 00 Sports Medicin e Synovitis Synovitis Problem Active Aza nettie of joint of Joint 03-03 Orthop e of right of Right 00:00: dic knee Knee 00 Sports Medicin e Loose body Loose Body Problem Active A zalea in right in Right 03-03 Orthop e knee joint Knee Joint 00:00: di c 00 Sports Medicin e Chondromal Chondromal Problem Active A zalea acia of acia of 03-03 Orthope right Right 00:00: dic patella Patella 00 Sports Medicin e 723.0 723.0 Diagnosis Active 2010-10-18 Mem oria Active 10-11 12:40:00 l 10/11/2010 00:00: Isai cameron 00 [facility] Fibromyalg Fibromyal Problem Active 2010-10-21 Memoria ia lia Active 08:01:15 l Problem [place] 10/21/2010 [facility] Hypertensi Hypertens Problem Active 2010-10-21 Memoria on ion Active 08:01:15 l Problem [place] 10/21/2010 [facility] Neck pain Neck pain Problem Active 2010-10-21 Memoria Active 08:01:15 l Problem [place] 10/21/2010 [facility] CERVICAL CERVICAL Diagnosis Active 2010-10-18 Memoria SPINAL SPINAL 12:40:00 l STENOSIS STENOSIS Isai n Active [facility] Allergies, Adverse Reactions, Alerts Allergy Allergy Status Severity Reaction(s) Onset Inactive Treating Comm ents Source Name Type Date Date Clinician Sulfa DA Active SV SEVERE [facility] (Sulfona RASHES 6-19 [place] [facility] 00:00: Orthope Antibiot 00 dic ics) Hospita l sulfamet DA Active U [facility] hizole 6-16 [place] 00:00: Orthope 00 dic Hospita l Sulfa DA Active MO HIVES 2021-06 [facility] (Sulfona 2-28 [place] [facility] 00:00: Healthc Antibiot 00 are ics) [facility] Sulfa DA Active SV 2018-06 [facility] (Sulfona 1-12 [place] 00:00: [place] Antibiot 00 Regiona ics) [facility] Sulfa DA Active SV SEVERE 2018-06 [facility] (Sulfona RASHES 1-12 [place] [facility] 00:00: Orthope Antibiot 00 dic ics) Hospita l SULFA Allergy Active Rash Deisy (SULFONA to 8-16 Orthope MIDE substanc 00:00: dic ANTIBIOT e 00 Sports ICS) Medicin e Sulfa Propensi Active Rash 2009-06 [facility] (Sulfona ty to 2-07 st mide adverse 00:00: Hospita Antibiot reaction 00 l ics) s to drug sulfa sulfa Active [facility] drugs drugs l [place] Family History Family Member Diagnosis Comments Start Date Stop Date Source Family member Colon cancer [facility] Family member Colon polyps [facility] Paternal grandfather Stroke [facility] Paternal grandfather Hypertension [facility] Paternal grandmother Hypertension [facility] Paternal grandmother Stroke [facility] Natural sister GI problems [facility] Natural father COPD [facility] Natural father Hypertension [facility] Natural father Stroke [facility] Natural mother Hyperlipidemia Method [facility] Natural mother Hypertension [facility] Natural mother Kidney disease Method [facility] Social History Social Habit Start Date Stop Date Quantity Comments Source History SDLA [facility] Hospit al History SDLA [facility] Gender identity [facility] Sexual orientation [facility] Alcohol intake 2021-01-10 2021-01-10 Lifetime [facility] 00:00:00 00:00:00 non-drinker Hospital (finding) History of Social 2021-01-10 2021-01-[address] function 00:00:00 00:00:00 Hospital Tobacco use and 2020-12-14 2020-12-14 Smokeless [facility] exposure 00:00:00 00:00:00 tobacco non-user Hospital History SDOH 2020-12-14 2020-12-14 1 [facility] Frequency 00:00:00 00:00:00 Hospita l Social History 2019-01-01 2019-01-01 [facility] Ale renu 04:59:59 04:59:59 Sex [birth year] At [birth year] [facility] 00:[facility] 00:00:00 Hospital Smoking Status Start Date Stop Date Source Never smoked tobacco [facility] Medications Ordered Filled Start Stop Current Ordering Indication Dosage Frequency Signature Comments Components Source Medication Medication Date Date Medication? Clinician (SIG) Name Name pantoprazol Yes [id number] TAKE 1 [facility] (PROTONIX) 00:00: MOUTH Hospit a 40 MG EC 00 EVERY DAY l tablet pantoprazol Yes [id number] TAKE 1 [facility] (PROTONIX) 00:00: MOUTH Hospit a 40 MG EC 00 EVERY DAY l tablet pantoprazol Yes [id number] TAKE 1 [facility] (PROTONIX) 00:00: MOUTH Hospit a 40 MG EC 00 EVERY DAY l tablet pantoprazol 0 Yes [id number] TAKE 1 [facility] 6[facility] (PROTONIX) 00:00: MOUTH Hospit a 40 MG EC 00 EVERY DAY l tablet irbesartan 0 Yes 300mg QD Take 300 Me thodi (AVAPRO) 8-[address] 300 MG 15:32: mouth Hospita tablet 21 daily. l diphenhydra 0 Yes 3{tbl} QD Take 3 Me thodi mine HCl 8-[address] (BENADRYL 15:32: mouth Hospita ORAL) 21 nightly as l needed. aspirin 2020-0 Yes 81mg Q.5D Take 81 mg Meth estiven (ECOTRIN) 8-[address] 81 MG 15:32: (two) Hospita enteric 21 times a l coated day. tablet hydroCHLORO 0 Yes 12.5mg QD Take 12.5 [facility] thiazide 8-[address] (MICROZIDE) 15:32: mouth Hospi ta 12.5 mg 21 daily. 4 l capsule capsule- 2 in morning And 2 at lunch naproxen 0 Yes Take by Method i sodium 8-[address] (ALEVE 15:32: needed. Hospita ORAL) 21 l irbesartan Yes 300mg QD Take 300 Me thodi (AVAPRO) 8-[address] 300 MG 15:32: mouth Hospita tablet 21 daily. l diphenhydra 0 Yes 3{tbl} QD Take 3 Me thodi mine HCl 8-[address] (BENADRYL 15:32: mouth Hospita ORAL) 21 nightly as l needed. aspirin 2020-0 Yes 81mg Q.5D Take 81 mg Meth estiven (ECOTRIN) 8-[address] 81 MG 15:32: (two) Hospita enteric 21 times a l coated day. tablet hydroCHLORO 2020-0 Yes 12.5mg QD Take 12.5 [facility] thiazide 8-[address] (MICROZIDE) 15:32: mouth Hospi ta 12.5 mg 21 daily. 4 l capsule capsule- 2 in morning And 2 at lunch naproxen 2020-0 Yes Take by Method i sodium 8-[address] (ALEVE 15:32: needed. Hospita ORAL) 21 l irbesartan 2020-0 Yes 300mg QD Take 300 Me thodi (AVAPRO) 8-[address] 300 MG 15:32: mouth Hospita tablet 21 daily. l diphenhydra 2020-0 Yes 3{tbl} QD Take 3 Me thodi mine HCl 8-[address] (BENADRYL 15:32: mouth Hospita ORAL) 21 nightly as l needed. aspirin 2020-0 Yes 81mg Q.5D Take 81 mg Meth estiven (ECOTRIN) 8-[address] 81 MG 15:32: (two) Hospita enteric 21 times a l coated day. tablet hydroCHLORO 2020-0 Yes 12.5mg QD Take 12.5 [facility] thiazide 8-[address] (MICROZIDE) 15:32: mouth Hospi ta 12.5 mg 21 daily. 4 l capsule capsule- 2 in morning And 2 at lunch naproxen 2020-0 Yes Take by Method i sodium 8-[address] (ALEVE 15:32: needed. Hospita ORAL) 21 l irbesartan 0 Yes 300mg QD Take 300 Me thodi (AVAPRO) 8-[address] 300 MG 15:32: mouth Hospita tablet 21 daily. l diphenhydra 2020-0 Yes 3{tbl} QD Take 3 Me thodi mine HCl 8-[address] (BENADRYL 15:32: mouth Hospita ORAL) 21 nightly as l needed. aspirin 2020-0 Yes 81mg Q.5D Take 81 mg Meth estiven (ECOTRIN) 8-[address] 81 MG 15:32: (two) Hospita enteric 21 times a l coated day. tablet hydroCHLORO 2020-0 Yes 12.5mg QD Take 12.5 [facility] thiazide 8-[address] (MICROZIDE) 15:32: mouth Hospi ta 12.5 mg 21 daily. 4 l capsule capsule- 2 in morning And 2 at lunch naproxen 2020-0 Yes Take by Method i sodium 8-[address] (ALEVE 15:32: needed. Hospita ORAL) 21 l topiramate 2020-0 Yes 100mg Q.5D Take 100 Me thodi XR (Qudexy 8-[address] XR) 100 mg 15:32: mouth 2 Hosp bradly capsule,spr 20 (two) l inkle,ER times a 24hr day. methocarbam 2021-0 Yes Q.[id number] Take by [facility] oL 8-[id number] (ROBAXIN) 15:32: 3D (three) Hospi ta 500 MG 20 times a l tablet day as needed. gabapentin 2021-0 Yes 600mg Q.[id number] Take 600 [facility] (NEURONTIN) 8-03 [id number] mg by s t 600 mg 15:32: 3D mouth 3 Hospita tablet 20 (three) l times a day. simvastatin 2021-0 Yes QD Take by Met hodi (ZOCOR) 40 8-[address] mg tablet 15:32: nightly. Hosp bradly 20 l famotidine 2021-0 Yes 40mg QD Take 40 mg M ethodi (PEPCID) 40 8-[address] MG tablet 15:32: daily. Hospit a 20 l topiramate 2021-0 Yes 100mg Q.5D Take 100 Me thodi XR (Qudexy 8-[address] XR) 100 mg 15:32: mouth 2 Hosp bradly capsule,spr 20 (two) l inkle,ER times a 24hr day. methocarbam 2021-0 Yes Q.[id number] Take by Methodi oL 8-[id number] (ROBAXIN) 15:32: 3D (three) Hospi ta 500 MG 20 times a l tablet day as needed. gabapentin 2021-0 Yes 600mg Q.[id number] Take 600 [facility] (NEURONTIN) 8-03 [id number] mg by s t 600 mg 15:32: 3D mouth 3 Hospita tablet 20 (three) l times a day. simvastatin 2021-0 Yes QD Take by Met hodi (ZOCOR) 40 8-[address] mg tablet 15:32: nightly. Hosp bradly 20 l famotidine 2021-0 Yes 40mg QD Take 40 mg M ethodi (PEPCID) 40 8-[address] MG tablet 15:32: daily. Hospit a 20 l topiramate 2021-0 Yes 100mg Q.5D Take 100 Me thodi XR (Qudexy 8-[address] XR) 100 mg 15:32: mouth 2 Hosp bradly capsule,spr 20 (two) l inkle,ER times a 24hr day. methocarbam 2021-0 Yes Q.[id number] Take by Methodi oL 8-[id number] (ROBAXIN) 15:32: 3D (three) Hospi ta 500 MG 20 times a l tablet day as needed. gabapentin 2021-0 Yes 600mg Q.[id number] Take 600 [facility] (NEURONTIN) 8-03 [id number] mg by s t 600 mg 15:32: 3D mouth 3 Hospita tablet 20 (three) l times a day. simvastatin 202-0 Yes QD Take by Met nic (ZOCOR) 40 8-[address] mg tablet 15:32: nightly. Hosp bradly 20 l famotidine 2020-0 Yes 40mg QD Take 40 mg M ethodi (PEPCID) 40 8-[address] MG tablet 15:32: daily. Hospit a 20 l simvastatin 202-0 Yes QD Take by Met nic (ZOCOR) 40 8-[address] mg tablet 15:32: nightly. Hosp bradly 20 l famotidine 2020-0 Yes 40mg QD Take 40 mg M ethodi (PEPCID) 40 8-[address] MG tablet 15:32: daily. Hospit a 20 l topiramate 2020-0 Yes 100mg Q.5D Take 100 Me thodi XR (Qudexy 8-[address] XR) 100 mg 15:32: mouth 2 Hosp bradly capsule,spr 20 (two) l inkle,ER times a 24hr day. methocarbam 2021-0 Yes Q.[id number] Take by Methodi oL 8-[id number] (ROBAXIN) 15:32: 3D (three) Hospi ta 500 MG 20 times a l tablet day as needed. gabapentin 2021-0 Yes 600mg Q.[id number] Take 600 [facility] (NEURONTIN) 8-03 [id number] mg by s t 600 mg 15:32: 3D mouth 3 Hospita tablet 20 (three) l times a day. sodium,pota 2020-0 Yes Drink 1 Met nic ssium,mag 7-[address] sulfates 00:00: directed Hospi ta (Suprep 00 for dose 1 l Bowel Prep and 1 Kit) bottle as 17.5-3.13-1 directed .6 gram for dose recon soln 2.Follow doctor's instructio ns only sodium,pota 0 Yes Drink 1 Met hodi ssium,mag 7-[address] sulfates 00:00: directed Hospi ta (Suprep 00 for dose 1 l Bowel Prep and 1 Kit) bottle as 17.5-3.13-1 directed .6 gram for dose recon soln 2.Follow doctor's instructio ns only sodium,pota 0 Yes Drink 1 Met hodi ssium,mag 7-[address] sulfates 00:00: directed Hospi ta (Suprep 00 for dose 1 l Bowel Prep and 1 Kit) bottle as 17.5-3.13-1 directed .6 gram for dose recon soln 2.Follow doctor's instructio ns only sodium,pota Yes Drink 1 Met hodi ssium,mag 7-[address] sulfates 00:00: directed Hospi ta (Suprep 00 for dose 1 l Bowel Prep and 1 Kit) bottle as 17.5-3.13-1 directed .6 gram for dose recon soln 2.Follow doctor's instructio ns only pantoprazol 2021- No [id number] 40mg QD Take 1 [facility] e 12-1908 tablet (40 st (PROTONIX) 00:00: 00:00 mg total) H ospita 40 MG EC 00 :00 by mouth l tablet daily. pantoprazol 2021- No [id number] 40mg QD Take 1 Method[facility] e 12-1908 tablet (40 st (PROTONIX) 00:00: 00:00 mg total) H ospita 40 MG EC 00 :00 by mouth l tablet daily. doxycycline doxycycline 2018-06 No doxycyclin [facility] hyclate 100 hyclate 100 2-17 e hyclate Orthope mg tablet mg tablet 00:00: 100 mg d ic take 1 po take 1 po 00 tablet Spo rts bid bid take 1 po Medicin bid e tramadol 50 tramadol 50 2018-06 No tramadol [facility] mg tablet 1 mg tablet 1 2-10 50 mg Orthope PO Q 4HRS PO Q 4HRS 00:00: tablet 1 dic PRN PAIN PRN PAIN 00 PO Q 4HRS Sp orts PRN PAIN Medicin e ibuprofen ibuprofen 2018-06 No ibuprofen Deisy 800 mg 800 mg 0-15 800 mg Orthope tablet 1 po tablet 1 po 00:00: tablet 1 dic TID PC TID PC 00 po TID PC Sports Medicin e naproxen naproxen No naproxen A zalea 500 mg 500 mg 9-24 500 mg Orthope tablet 1 po tablet 1 po 00:00: tablet 1 dic BID PC BID PC 00 po BID PC Sports Medicin e Keflex 500 Keflex 500 No Keflex 500 Deisy mg capsule mg capsule 9-11 mg capsule Orthope 1 po Q6H 1 po Q6H 00:00: 1 po Q6H d ic TAKE AFTER TAKE AFTER 00 TAKE AFTER Sports SURGERY SURGERY SURGERY Medici n e Tylenol-Cod Tylenol-Cod No Tylenol-Co Deisy eine #4 300 eine #4 300 9-11 deine #4 Orthope mg-60 mg mg-60 mg 00:00: 300 mg-60 dic tablet 1 po tablet 1 po 00 mg tablet Sports Q6-8H PER Q6-8H PER 1 po Q6-8H Medicin PAIN. START PAIN. START PER PAIN. e TAKING TAKING START AFTER AFTER TAKING SURGERY SURGERY AFTER SURGERY Zofran 4 mg Zofran 4 mg No Zofran 4 [facility]isy tablet 1 po tablet 1 po 9-11 mg tablet Orthope Q6-8H PRN Q6-8H PRN 00:00: 1 po Q6-8H dic NAUSEA TAKE NAUSEA TAKE 00 PRN NAUSEA Sports AFTER AFTER TAKE AFTER Medicin SURGERY SURGERY SURGERY e acetaminoph No Anthony B 1 tab, Me moria en-hydrocod 5-14 [place] Route: PO, l one 325 19:00: Drug Form: Herm adela mg-10 mg 00 TAB, oral tablet ONCALL, Start date: 10/19/10 14:00:00, Duration: 1 doses or times acetaminoph No Anthony B 1 tab, Me moria en-hydrocod 5-14 [place] Route: PO, l one 325 19:00: Drug Form: Herm adela mg-10 mg 00 TAB, oral tablet ONCALL, Start date: 10/19/10 14:00:00, Duration: 1 doses or times Biotin No Anthony B Biotin, 1 Oneil gely 5-14 [place] tab, Drug l 14:00: form: [place] MISC, Route: PO, Daily, 10/19/10 9:00:00, Duration: 30 day, Stop date: 11/17/10 9:00:00 Aldactone No Anthony B 50 mg, 1 Me moria 5-14 [place] tab, l 14:00: Route: PO, [place] 00 Drug form: TAB, Daily, Start date: 10/19/10 9:00:00, Duration: 30 day, Stop date: 11/17/10 9:00:00 Prinivil No Anthony B 20 mg, 1 Mem oria 5-14 [place] tab, l 14:00: Route: PO, [place] 00 Drug form: TAB, Daily, Start date: 10/19/10 9:00:00, Duration: 30 day, Stop date: 11/17/10 9:00:00 Coenzyme No Anthony B 100 mg, 1 Me moria Q10 5-14 [place] cap, l 14:00: Route: PO, Drug form: CAP, Daily, Start date: 10/19/10 9:00:00, Duration: 30 day, Stop date: 11/17/10 9:00:00 Biotin No Anthony B Biotin, 1 Oneil gely 5-14 [place] tab, Drug l 14:00: form: MISC, Route: PO, Daily, 10/19/10 9:00:00, Duration: 30 day, Stop date: 11/17/10 9:00:00 Aldactone No Anthony B 50 mg, 1 Me moria 5-14 [place] tab, l 14:00: Route: PO, [place] 00 Drug form: TAB, Daily, Start date: 10/19/10 9:00:00, Duration: 30 day, Stop date: 11/17/10 9:00:00 multivitami No Anthony B 1 tab, Me moria n 5-14 [place] Route: PO, l 14:00: Drug form: [place] 00 TAB, Daily, Start date: 10/19/10 9:00:00, Duration: 30 day, Stop date: 11/17/10 9:00:00 Prinivil 2010- No Anthony B 20 mg, 1 Mem oria 5-14 [place] tab, l 14:00: Route: PO, [place] Drug form: TAB, Daily, Start date: 10/19/10 9:00:00, Duration: 30 day, Stop date: 11/17/10 9:00:00 Coenzyme 0 No Anthony B 100 mg, 1 Me moria Q10 5-14 [place] cap, l 14:00: Route: PO, [place] 00 Drug form: CAP, Daily, Start date: 10/19/10 9:00:00, Duration: 30 day, Stop date: 11/17/10 9:00:00 multivitami 2010- No Anthony B 1 tab, Me moria n 5-14 [place] Route: PO, l 14:00: Drug form: [place] 00 TAB, Daily, Start date: 10/19/10 9:00:00, Duration: 30 day, Stop date: 11/17/10 9:00:00 Robaxin No Anthony B 750 mg, 1 Mem oria 5-14 [place] tab, l 14:00: Route: PO, [place] 00 Drug form: TAB, Daily, Start date: 10/19/10 9:00:00, Duration: 30 day, Stop date: 11/17/10 9:00:00 Vitamin C No Anthony B 500 mg, 1 M emoria 5-14 [place] tab, l 14:00: Route: PO, [place] 00 Drug form: TAB, Daily, Start date: 10/19/10 9:00:00, Duration: 30 day, Stop date: 11/17/10 9:00:00 Edecrin No Anthony B 25 mg, 1 Oneil gely 5-14 [place] tab, l 14:00: Route: PO, [place] 00 Drug form: TAB, Daily, Start date: 10/19/10 9:00:00, Duration: 30 day, Stop date: 11/17/10 9:00:00 Robaxin 0 No Anthony B 750 mg, 1 Mem oria 5-14 [place] tab, l 14:00: Route: PO, [place] 00 Drug form: TAB, Daily, Start date: 10/19/10 9:00:00, Duration: 30 day, Stop date: 11/17/10 9:00:00 Vitamin C No Anthony B 500 mg, 1 M emoria 5-14 [place] tab, l 14:00: Route: PO, [place] 00 Drug form: TAB, Daily, Start date: 10/19/10 9:00:00, Duration: 30 day, Stop date: 11/17/10 9:00:00 Edecrin No Anthony B 25 mg, 1 Oneil gely 5-14 [place] tab, l 14:00: Route: PO, [place] 00 Drug form: TAB, Daily, Start date: 10/19/10 9:00:00, Duration: 30 day, Stop date: 11/17/10 9:00:00 Cepastat No Anthony B 1 lozenge, Prema emoria 5-14 [place] Route: l 12:36: MUCOUS [place] 00 MEM, Q2H, Drug form: KAYLA PRN Sore Throat, Start date: 10/19/10 7:36:00, Duration: 30 day, Stop date: 11/18/10 7:35:00 Cepastat No Anthony B 1 lozenge, Prema emoria 5-14 [place] Route: l 12:36: MUCOUS [place] 00 MEM, Q2H, Drug form: KAYLA PRN Sore Throat, Start date: 10/19/10 7:36:00, Duration: 30 day, Stop date: 11/18/10 7:35:00 amitriptyli No Anthony B 20 mg, 2 Memoria ne 5-14 [place] tab, l 02:00: Route: PO, [place] 00 Drug form: TAB, Bedtime, Start date: 10/18/10 21:00:00, Duration: 30 day, Stop date: 11/16/10 21:00:00 Zyloprim No Anthony B 300 mg, 1 Me moria 5-14 [place] tab, l 02:00: Route: PO, [place] 00 Drug form: TAB, Bedtime, Start date: 10/18/10 21:00:00, Duration: 30 day, Stop date: 11/16/10 21:00:00 Zocor 0 No Anthony B 20 mg, 1 Memori a 5-14 [place] tab, l 02:00: Route: PO, [place] 00 Drug form: TAB, Bedtime, Start date: 10/18/10 21:00:00, Duration: 30 day, Stop date: 11/16/10 21:00:00 amitriptyli 2010-0 No Anthony B 20 mg, 2 Memoria ne 5-14 [place] tab, l 02:00: Route: PO, Drug form: TAB, Bedtime, Start date: 10/18/10 21:00:00, Duration: 30 day, Stop date: 11/16/10 21:00:00 Zyloprim 0 No Anthony B 300 mg, 1 Me moria 5-14 [place] tab, l 02:00: Route: PO, Drug form: TAB, Bedtime, Start date: 10/18/10 21:00:00, Duration: 30 day, Stop date: 11/16/10 21:00:00 Zocor 2010-0 No Anthony B 20 mg, 1 Memori a 5-14 [place] tab, l 02:00: Route: PO, Drug form: TAB, Bedtime, Start date: 10/18/10 21:00:00, Duration: 30 day, Stop date: 11/16/10 21:00:00 Lecithin 2010-0 No Anthony B Lecithin, Me moria 5-13 [place] 400 mg, l 22:00: Drug form: [place] 00 MISC, Route: PO, BID, 10/18/10 17:00:00, Duration: 30 day, Stop date: 11/17/10 9:00:00 Lyrica 0 No Anthony B 200 mg, 4 Oneil gely 5-13 [place] cap, l 22:00: Route: PO, Drug form: CAP, BID, Start date: 10/18/10 17:00:00, Duration: 30 day, Stop date: 11/17/10 9:00:00 Cymbalta 2010-0 No Anthony B 60 mg, 1 Mem oria 5-13 [place] cap, l 22:00: Route: PO, Drug form: CAP, BID, Start date: 10/18/10 17:00:00, Duration: 30 day, Stop date: 11/17/10 9:00:00 Vitamin D3 2010-0 No Anthony B 2,000 Oneil gely 5-13 [place] IntlUnit, l 22:00: 2 tab, [place] 00 Route: PO, Drug form: TAB, BID, Start date: 10/18/10 17:00:00, Duration: 30 day, Stop date: 11/17/10 9:00:00 Os-Michele 500 No Anthony B 500 mg, 1 Memoria 5-13 [place] tab, l 22:00: Route: PO, Drug form: TAB, BID, Start date: 10/18/10 17:00:00, Duration: 30 day, Stop date: 11/17/10 9:00:00 Lecithin 2010- No Anthony B Lecithin, Me moria 5-13 [place] 400 mg, l 22:00: Drug form: [place] MISC, Route: PO, BID, 10/18/10 17:00:00, Duration: 30 day, Stop date: 11/17/10 9:00:00 Lyrica No Anthony B 200 mg, 4 Oneil gely 5-13 [place] cap, l 22:00: Route: PO, Drug form: CAP, BID, Start date: 10/18/10 17:00:00, Duration: 30 day, Stop date: 11/17/10 9:00:00 Cymbalta No Anthony B 60 mg, 1 Mem oria 5-13 [place] cap, l 22:00: Route: PO, Drug form: CAP, BID, Start date: 10/18/10 17:00:00, Duration: 30 day, Stop date: 11/17/10 9:00:00 Vitamin D3 No Anthony B 2,000 Oneil gely 5-13 [facility] IntlUnit, l 22:00: 2 tab, Route: PO, Drug form: TAB, BID, Start date: 10/18/10 17:00:00, Duration: 30 day, Stop date: 11/17/10 9:00:00 Os-Michele 500 No Anthony B 500 mg, 1 Memoria 5-13 [place] tab, l 22:00: Route: PO, Drug form: TAB, BID, Start date: 10/18/10 17:00:00, Duration: 30 day, Stop date: 11/17/10 9:00:00 Protonix 2010-0 No Anthony B 40 mg, 1 Mem oria 5-13 [place] tab, l 21:30: Route: PO, [place] Drug form: TAB, Before Dinner, Start date: 10/18/10 16:30:00, Duration: 30 day, Stop date: 11/16/10 16:30:00 Protonix 2010-0 No Anthony B 40 mg, 1 Mem oria 5-13 [place] tab, l 21:30: Route: PO, [place] Drug form: TAB, Before Dinner, Start date: 10/18/10 16:30:00, Duration: 30 day, Stop date: 11/16/10 16:30:00 Aleve 2010-0 No Anthony B Aleve, 220 Oneil gely 5-13 [place] mg, Drug l 19:28: form: [place] MISC, Route: PO, PRN, PRN Pain, 10/18/10 14:28:00, Duration: 30 day, Stop date: 11/17/10 14:27:00 Aleve 2010-0 No Anthony B Aleve, 220 Oneil gely 5-13 [place] mg, Drug l 19:28: form: [place] 00 MISC, Route: PO, PRN, PRN Pain, 10/18/10 14:28:00, Duration: 30 day, Stop date: 11/17/10 14:27:00 Benadryl 2010-0 No Anthony B 25 mg, 1 Mem oria 5-13 [place] cap, l 18:39: Route: PO, [place] 00 Drug form: CAP, Bedtime, PRN Sleep, Start date: 10/18/10 13:39:00, Duration: 30 day, Stop date: 11/17/10 13:38:00 Benadryl 0 No Anthony B 25 mg, 1 Mem oria 5-13 [place] cap, l 18:39: Route: PO, [place] 00 Drug form: CAP, Bedtime, PRN Sleep, Start date: 10/18/10 13:39:00, Duration: 30 day, Stop date: 11/17/10 13:38:00 1/2NS + KCL No Anthony B 1,000 mL, Memoria 20mEq/L 5-13 [place] Rate: 75 l 1000ml 17:48: ml/hr, [place] (Premix) 00 Infuse 1,000 mL over: 13.3 hr, Route: IV, Total Volume: 1,000, Start date: 10/18/10 12:48:00, Duration: 30 day, Stop date: 11/17/10 12:47:00 1/2NS + KCL No Anthony B 1,000 mL, Memoria 20mEq/L 5-13 [place] Rate: 75 l 1000ml 17:48: ml/hr, [place] (Premix) 00 Infuse 1,000 mL over: 13.3 hr, Route: IV, Total Volume: 1,000, Start date: 10/18/10 12:48:00, Duration: 30 day, Stop date: 11/17/10 12:47:00 Zofran No Anthony B 4 mg, 2 Memori a 5-13 [place] mL, Route: l 17:47: IVP, Drug [place] 00 form: INJ, Q3H, PRN Nausea, Start date: 10/18/10 12:47:00, Duration: 30 day, Stop date: 11/17/10 12:46:00 morphine No Anthony B 2 mg, 0.4 Me moria Sulfate 5-13 Parrish mL, Route: l 17:47: IV, Drug [place] 00 form: INJ, Q1H, PRN Pain, Start date: 10/18/10 12:47:00, Duration: 30 day, Stop date: 11/17/10 12:46:00 acetaminoph No Anthony B 1 tab, Me moria en-hydrocod 5-13 [place] Route: PO, l one 325 17:47: Drug Form: Herm adela mg-10 mg 00 TAB, Q3H, oral tablet PRN Pain, Start date: 10/18/10 12:47:00, Duration: 30 day, Stop date: 11/17/10 12:46:00 Zofran No Anthony B 4 mg, 2 Memori a 5-13 [place] mL, Route: l 17:47: IVP, Drug [place] 00 form: INJ, Q3H, PRN Nausea, Start date: 10/18/10 12:47:00, Duration: 30 day, Stop date: 11/17/10 12:46:00 morphine No Anthony B 2 mg, 0.4 Me moria Sulfate 5-13 [place]rish mL, Route: l 17:47: IV, Drug [place] 00 form: INJ, Q1H, PRN Pain, Start date: 10/18/10 12:47:00, Duration: 30 day, Stop date: 11/17/10 12:46:00 acetaminoph No Anthony B 1 tab, Me moria en-hydrocod 5-13 [place] Route: PO, l one 325 17:47: Drug Form: Herm adela mg-10 mg 00 TAB, Q3H, oral tablet PRN Pain, Start date: 10/18/10 12:47:00, Duration: 30 day, Stop date: 11/17/10 12:46:00 cefazolin No Anthony B 1 gm, 50 Me moria 5-13 [place]rish mL, Route: l 17:00: IVPB, Drug [place] form: INJ, ABXQ6H, Start date: 10/18/10 12:00:00, Duration: 1 day, Stop date: 10/19/10 6:00:00 cefazolin No Anthony B 1 gm, 50 Me moria 5-13 [place]rish mL, Route: l 17:00: IVPB, Drug [place] 00 form: INJ, [id number], Start date: 10/18/10 12:00:00, Duration: 1 day, Stop date: 10/19/10 6:00:00 morphine No Toni A 2 mg, 0.5 Memoria Sulfate 5-13 [place] mL, Route: l 16:15: IVP, Drug [place] 00 form: INJ, Q5Min, Start date: 10/18/10 11:15:00, Duration: 5 doses or times, Stop date: 10/18/10 11:35:00 morphine No Toni A 2 mg, 0.5 Memoria Sulfate 5-13 [place] mL, Route: l 16:15: IVP, Drug [place] 00 form: INJ, Q5Min, Start date: 10/18/10 11:15:00, Duration: 5 doses or times, Stop date: 10/18/10 11:35:00 ketorolac No Toni A 30 mg, M emoria 5-13 [place] Route: l 16:00: IVP, ONCE, Start date: 10/18/10 11:00:00, Stop date: 10/18/10 11:00:00 ketorolac 2010- No Toni A 30 mg, M fauziaa 5- [place] Route: l 16:00: IVP, ONCE, Start date: 10/18/10 11:00:00, Stop date: 10/18/10 11:00:00 hydromorpho 2010-0 No Toni A 0.5 mg, Memoria ne 5-13 [place] 0.25 mL, l 15:55: Route: IV, Drug form: INJ, ONCE, Start date: 10/18/10 10:55:00, Stop date: 10/18/10 10:55:00 hydromorpho 2010- No Toni A 0.5 mg, Memoria ne 5-13 [place] 0.25 mL, l 15:55: Route: IV, Drug form: INJ, ONCE, Start date: 10/18/10 10:55:00, Stop date: 10/18/10 10:55:00 hydromorpho No Toni A 0.5 mg, Memoria ne - [place] Route: IV, l 15:50: ONCE, Start date: 10/18/10 10:50:00, Stop date: 10/18/10 10:50:00 hydromorpho 2010- No Toni A 0.5 mg, Memoria ne - [place] Route: IV, l 15:50: ONCE, Start date: 10/18/10 10:50:00, Stop date: 10/18/10 10:50:00 hydromorpho 2010-0 No Toni A 0.5 mg, Memoria ne 5- [place] Route: IV, l 15:45: ONCE, Start date: 10/18/10 10:45:00, Stop date: 10/18/10 10:45:00 hydromorpho 2010-0 No Toni A 0.5 mg, Memoria ne - [place] Route: IV, l 15:45: ONCE, Start date: 10/18/10 10:45:00, Stop date: 10/18/10 10:45:00 hydromorpho No Toni A 0.5 mg, [facility] ne 10-18 [place] Route: IV, l 15:40: ONCE, Start date: 10/18/10 10:40:00, Stop date: 10/18/10 10:40:00 hydromorpho No Toni A 0.5 mg, [facility] ne 10-18 [place] Route: IV, l 15:40: ONCE, Start date: 10/18/10 10:40:00, Stop date: 10/18/10 10:40:00 DULoxetine 2009-06 Yes 60mg QD Take 60 mg M ethodi (Cymbalta) 2-[address] 60 MG 00:00: daily. [facility] capsule 00 l DULoxetine 2009-06 Yes 60mg QD Take 60 mg M ethodi (Cymbalta) 2-[address] 60 MG 00:00: daily. [facility]osp[facility] capsule 00 l DULoxetine 2009-06 Yes 60mg QD Take 60 mg M ethodi (Cymbalta) 2-[address] 60 MG 00:00: daily. [facility]osp[facility] capsule 00 l DULoxetine 2009-06 Yes 60mg QD Take 60 mg M ethodi (Cymbalta) 2-[address] 60 MG 00:00: daily. [facility]osp[facility] capsule 00 l hydrochloro hydrochloro No hydrochlor Deisy thiazide thiazide othiazide Or thope 12.5 mg 12.5 mg 12.5 mg dic tablet TAKE tablet TAKE tablet Sports 1 TABLET BY 1 TABLET BY TAKE 1 Medicin MOUTH EVERY MOUTH EVERY TABLET BY e DAY DAY MOUTH EVERY DAY hydrochloro hydrochloro No hydrochlor Deisy thiazide 25 thiazide 25 othiazide [facility] mg tablet mg tablet 25 mg dic TAKE 1 TAKE 1 tablet Sports TABLET BY TABLET BY TAKE 1 Med icin MOUTH EVERY MOUTH EVERY TABLET BY e DAY DAY MOUTH EVERY DAY ibandronate ibandronate No ibandronat Deisy 150 mg 150 mg e 150 mg [facility] tablet TAKE tablet TAKE tablet dic 1 TABLET BY 1 TABLET BY TAKE 1 Sports MOUTH ONCE MOUTH ONCE TABLET BY Medicin A MONTH A MONTH MOUTH ONCE e A MONTH irbesartan irbesartan No irbesartan Deisy 300 mg 300 mg 300 mg [facility] tablet TAKE tablet TAKE tablet dic 1 TABLET BY 1 TABLET BY TAKE 1 Sports MOUTH EVERY MOUTH EVERY TABLET BY Medicin DAY DAY MOUTH e EVERY DAY irbesartan irbesartan No irbesartan Deisy 75 mg 75 mg 75 mg [facility] tablet RX tablet RX tablet RX dic by other MD by other MD by other Sports MD Medicin e methocarbam methocarbam No methocarba Deisy ol 500 mg ol 500 mg mol 500 mg [facility] tablet TAKE tablet TAKE tablet dic 1 TABLET BY 1 TABLET BY TAKE 1 Sports MOUTH THREE MOUTH THREE TABLET BY Medicin TIMES A DAY TIMES A DAY MOUTH e NEEDED NEEDED THREE FOR BACK FOR BACK TIMES A PAIN PAIN DAY NEEDED FOR BACK PAIN mupirocin 2 mupirocin 2 No mupirocin Deisy % topical % topical 2 % Ortho pe ointment ointment topical dic APPLY TO APPLY TO ointment Spo rts AFFECTED AFFECTED APPLY TO Med icin AREA OF AREA OF AFFECTED e SKIN TWO SKIN TWO AREA OF TIMES A DAY TIMES A DAY SKIN TWO TIMES A DAY mupirocin mupirocin No mupirocin Deisy calcium 2 % calcium 2 % calcium 2 [facility] topical topical % topical dic cream RX by cream RX by cream RX Sports other MD other MD by other Med icin MD e nifedipine nifedipine No nifedipine Deisy ER 30 mg ER 30 mg ER 30 mg Ort hope tablet,exte tablet,exte tablet,ext dic nded nded ended Sports release release release Medici n TAKE 1 TAKE 1 TAKE 1 e TABLET BY TABLET BY TABLET BY MOUTH TWICE MOUTH TWICE MOUTH A DAY FOR A DAY FOR TWICE A 30 DAYS 30 DAYS DAY FOR 30 DAYS nifedipine nifedipine No nifedipine Deisy ER 60 mg ER 60 mg ER 60 mg Ort hope tablet,exte tablet,exte tablet,ext dic nded nded ended Sports release release release Medici n TAKE 1 TAKE 1 TAKE 1 e TABLET BY TABLET BY TABLET BY MOUTH TWICE MOUTH TWICE MOUTH A DAY FOR A DAY FOR TWICE A 30 DAYS 30 DAYS DAY FOR 30 DAYS olmesartan olmesartan No olmesartan Deisy 40 mg 40 mg 40 mg [facility] tablet TAKE tablet TAKE tablet dic 1 TABLET BY 1 TABLET BY TAKE 1 Sports MOUTH EVERY MOUTH EVERY TABLET BY Medicin DAY FOR 30 DAY FOR 30 MOUTH e DAYS DAYS EVERY DAY FOR 30 DAYS pantoprazol pantoprazol No pantoprazo Deisy e 40 mg e 40 mg le 40 mg Ortho pe tablet,monserrat tablet,monserrat tablet,del dic yed release yed release ayed S ports TAKE 1 TAKE 1 release Medicin TABLET BY TABLET BY TAKE 1 e MOUTH EVERY MOUTH EVERY TABLET BY DAY DAY MOUTH EVERY DAY Qulipta 60 Qulipta 60 No Qulipta 60 Deisy mg tablet mg tablet mg tablet [facility]ope TAKE ONE TAKE ONE TAKE ONE dic (1) TABLET (1) TABLET (1) TABLET Sports ORALLY ONCE ORALLY ONCE ORALLY Medicin A DAY 30 A DAY 30 ONCE A DAY e DAYS DAYS 30 DAYS ranitidine ranitidine No ranitidine Deisy 150 mg 150 mg 150 mg [facility] tablet RX tablet RX tablet RX dic by other MD by other by other Sports MD Liliane blue simvastatin simvastatin No simvastati Deisy 40 mg 40 mg n 40 mg [facility] tablet TAKE tablet TAKE tablet dic 1 TABLET BY 1 TABLET BY TAKE 1 Sports MOUTH EVERY MOUTH EVERY TABLET BY Medicin DAY IN THE DAY IN THE MOUTH e EVENING EVENING EVERY DAY IN THE EVENING Suprep Suprep No Suprep Deisy Bowel Prep Bowel Prep Bowel Prep [facility] Kit 17.5 Kit 17.5 Kit 17.5 dic gram-3.13 gram-3.13 gram-3.13 Sports gram-1.6 gram-1.6 gram-1.6 Med icin gram oral gram oral gram oral e solution solution solution USE USE USE DIRECTED DIRECTED DIRECTED topiramate topiramate No topiramate Deisy 100 mg 100 mg 100 mg [facility] tablet RX tablet RX tablet RX dic by other MD by other by other Sports Medicin su triamterene triamterene No triamteren Deisy 37.5 37.5 e 37.5 [facility]ope mg-hydrochl mg-hydrochl mg-hydroch dic orothiazide orothiazide lorothiazi Sports 25 mg 25 mg de 25 mg Medicin tablet RX tablet RX tablet RX e by other MD by other MD by other allopurinol allopurinol No allopurino Deisy 100 mg 100 mg l 100 mg [facility] tablet RX tablet RX tablet RX dic by other by other by other Sports MD Liliane blue amlodipine amlodipine No amlodipine Deisy 2.5 mg 2.5 mg 2.5 mg [facility] tablet RX tablet RX tablet RX dic by other MD by other by other Nitesh blue amlodipine amlodipine No amlodipine Deisy 5 mg tablet 5 mg tablet 5 mg O rthope TAKE 1 TAKE 1 tablet dic TABLET BY TABLET BY TAKE 1 Spo rts MOUTH EVERY MOUTH EVERY TABLET BY Medicin DAY FOR 30 DAY FOR 30 MOUTH e DAYS DAYS EVERY DAY FOR 30 DAYS carbamazepi carbamazepi No carbamazep Deisy ne ER 100 ne ER 100 ine ER 100 [facility] mg mg mg dic tablet,exte tablet,exte tablet,ext Sports nded nded ended Medicin release,12 release,12 release,12 e hr TAKE 2 hr TAKE 2 hr TAKE 2 TABLETS BY TABLETS BY TABLETS BY MOUTH TWICE MOUTH TWICE MOUTH A DAY A DAY TWICE A DAY carbamazepi carbamazepi No carbamazep Deisy ne ER 200 ne ER 200 ine ER 200 [facility] mg mg mg dic tablet,exte tablet,exte tablet,ext Sports nded nded ended Medicin release,12 release,12 release,12 e hr TAKE 1 hr TAKE 1 hr TAKE 1 TABLET BY TABLET BY TABLET BY MOUTH TWICE MOUTH TWICE MOUTH A DAY FOR A DAY FOR TWICE A 90 DAYS 90 DAYS DAY FOR 90 DAYS clonidine clonidine No clonidine Deisy HCl 0.1 mg HCl 0.1 mg HCl 0.1 mg [facility] tablet TAKE tablet TAKE tablet dic 1 TAB(S) BY 1 TAB(S) BY TAKE 1 Sports MOUTH EVERY MOUTH EVERY TAB(S) BY Medicin 8 HOURS 8 HOURS MOUTH e NEEDED FOR NEEDED FOR EVERY 8 SBP>170 30 SBP>170 30 HOURS DAY(S) DAY(S) NEEDED FOR SBP>170 30 DAY(S) doxepin 10 doxepin 10 No doxepin 10 Deisy mg capsule mg capsule mg capsule [facility] RX by other RX by other RX by harman Atkinson duloxetine duloxetine No duloxetine Deisy 60 mg 60 mg 60 mg [facility] capsule,del capsule,del capsule,de dic ayed ayed layed Sports release release release Medici n TAKE 1 TAKE 1 TAKE 1 e CAPSULE BY CAPSULE BY CAPSULE BY MOUTH TWICE MOUTH TWICE MOUTH A DAY A DAY TWICE A DAY famotidine famotidine No famotidine Deisy 40 mg 40 mg 40 mg [facility] tablet TAKE tablet TAKE tablet dic 1 TABLET BY 1 TABLET BY TAKE 1 Sports MOUTH MOUTH TABLET BY Medicin EVERYDAY AT EVERYDAY AT MOUTH e BEDTIME BEDTIME EVERYDAY AT BEDTIME gabapentin gabapentin No gabapentin Deisy 600 mg 600 mg 600 mg [facility] tablet TAKE tablet TAKE tablet dic 1 TABLET BY 1 TABLET BY TAKE 1 Sports MOUTH EVERY MOUTH EVERY TABLET BY Medicin MORNING , 1 MORNING , 1 MOUTH e TABLET AT TABLET AT EVERY NOON, AND 3 NOON, AND 3 MORNING , TABLETS AT TABLETS AT 1 TABLET BEDTIME 90 BEDTIME 90 AT NOON, AND 3 TABLETS AT BEDTIME 90 hydralazine hydralazine No hydralazin Deisy 50 mg 50 mg e 50 mg [facility] tablet TAKE tablet TAKE tablet dic 1 TABLET BY 1 TABLET BY TAKE 1 Sports MOUTH TWICE MOUTH TWICE TABLET BY Medicin A DAY FOR A DAY FOR MOUTH e 30 DAYS 30 DAYS TWICE A DAY FOR 30 DAYS Vital Signs Vital Name Observation Time Observation Value Comments Source Diastolic (mm Hg) 2010-10-19 17:00:00 Mem orial [place] Temperature Oral (F) 2010-10-19 17:00:00 98.9 F [facility] [place] Systolic (mm Hg) 2010-10-19 17:00:00 Oneil rial [place] Respitory Rate 2010-10-19 17:00:00 Memori al [place] Peripheral Pulse Rate 2010-10-19 17:00:00 [facility] [place] Diastolic (mm Hg) 2010-10-19 13:00:00 Mem orial [place] Peripheral Pulse Rate 2010-10-19 13:00:00 [facility] [place] Systolic (mm Hg) 2010-10-19 13:00:00 Oneil rial [place] Temperature Oral (F) 2010-10-19 13:00:00 98.0 F [facility] [place] Respitory Rate 2010-10-19 13:00:00 Memori al [place] Diastolic (mm Hg) 2010-10-19 09:00:00 Mem orial [place] Temperature Oral (F) 2010-10-19 09:00:00 98.4 F [facility] [place] Peripheral Pulse Rate 2010-10-19 09:00:00 Memorial [place] Systolic (mm Hg) 2010-10-19 09:00:00 Oneil rial [place] Respitory Rate 2010-10-19 09:00:00 Memori al [place] Diastolic (mm Hg) 2010-10-19 05:00:00 Mem orial [place] Peripheral Pulse Rate 2010-10-19 05:00:00 [facility] [place] Respitory Rate 2010-10-19 05:00:00 Memori al [place] Temperature Oral (F) 2010-10-19 05:00:00 97.8 F [facility] [place] Systolic (mm Hg) 2010-10-19 05:00:00 Oneil rial [place] Respitory Rate 2010-10-19 01:00:00 Memori al [place] Peripheral Pulse Rate 2010-10-19 01:00:00 [facility] [place] Diastolic (mm Hg) 2010-10-19 01:00:00 Mem orial [place] Temperature Oral (F) 2010-10-19 01:00:00 97.4 F [facility] [place] Systolic (mm Hg) 2010-10-19 01:00:00 Oneil rial [place] Diastolic (mm Hg) 2010-10-18 22:30:00 Mem orial [place] Systolic (mm Hg) 2010-10-18 22:30:00 Oneil rial [place] Diastolic (mm Hg) 2010-10-18 21:00:00 Mem orial [place] Peripheral Pulse Rate 2010-10-18 21:00:00 [facility] [place] Systolic (mm Hg) 2010-10-18 21:00:00 Oneil rial [place] Respitory Rate 2010-10-18 21:00:00 Memori al [place] Temperature Oral (F) 2010-10-18 21:00:00 97.4 F [facility] [place] Diastolic (mm Hg) 2010-10-18 17:30:00 Mem orial [place] Peripheral Pulse Rate 2010-10-18 17:30:00 [facility] [place] Respitory Rate 2010-10-18 17:30:00 Memori al [place] Systolic (mm Hg) 2010-10-18 17:30:00 Oneil rial [place] Temperature Oral (F) 2010-10-18 17:30:00 97.7 F [facility] [place] Diastolic (mm Hg) 2010-10-18 17:00:00 Mem orial [place] Systolic (mm Hg) 2010-10-18 17:00:00 Oneil rial [place] Respitory Rate 2010-10-18 17:00:00 Memori al [place] Diastolic (mm Hg) 2010-10-18 16:45:00 Mem orial [place] Systolic (mm Hg) 2010-10-18 16:45:00 Oneil rial [place] Respitory Rate 2010-10-18 16:45:00 Memori al [place] Diastolic (mm Hg) 2010-10-18 16:30:00 Mem orial [place] Systolic (mm Hg) 2010-10-18 16:30:00 Oneil rial [place] Respitory Rate 2010-10-18 16:30:00 Memori al [place] Diastolic (mm Hg) 2010-10-18 16:15:00 Mem orial [place] Respitory Rate 2010-10-18 16:15:00 Memori al [place] Systolic (mm Hg) 2010-10-18 16:15:00 Oneil rial [place] Diastolic (mm Hg) 2010-10-18 16:00:00 Mem orial [place] Respitory Rate 2010-10-18 16:00:00 Memori al [place] Systolic (mm Hg) 2010-10-18 16:00:00 Oneil rial [place] Diastolic (mm Hg) 2010-10-18 15:45:00 Mem orial [place] Respitory Rate 2010-10-18 15:45:00 Memori al [place] Systolic (mm Hg) 2010-10-18 15:45:00 Oneil rial [place] Diastolic (mm Hg) 2010-10-18 15:36:00 Mem orial [place] Respitory Rate 2010-10-18 15:36:00 Memori al [place] Systolic (mm Hg) 2010-10-18 15:36:00 Oneil rial [place] Diastolic (mm Hg) 2010-10-18 11:12:00 Mem orial [place] Peripheral Pulse Rate 2010-10-18 11:12:00 [facility] [place] Respitory Rate 2010-10-18 11:12:00 Memori al [place] Temperature Oral (F) 2010-10-18 11:12:00 99.0 F [facility] [place] Systolic (mm Hg) 2010-10-18 11:12:00 Oneil rial [place] Diastolic (mm Hg) 2010-10-16 16:48:00 Mem orial [place] Peripheral Pulse Rate 2010-10-16 16:48:00 [facility] [place] Systolic (mm Hg) 2010-10-16 16:48:00 Oneil rial [place] Respitory Rate 2010-10-16 16:48:00 Memori al [place] Temperature Oral (F) 2010-10-16 16:48:00 99.1 F [facility] [place] Height 2010-10-16 15:52:00 152.4 cm [facility] [place] Weight 2010-10-16 15:52:[address] [facility] Procedures Procedure Date / Time Performed Performing Clinician Roseline blue [id number] 2022-06-06 00:00:00 JENNIFER ESQUIVEL [facility] Plan of Care Planned Activity Planned Date Details Comments Source Future Scheduled 2023-01-07 [facility] Test 15:14:44 malignant neoplasm of colon (procedure) [code = 379304128] Future Scheduled 2023-01-07 [facility] Test 15:14:44 malignant neoplasm of colon (procedure) [code = 755741318] Future Scheduled 2023-01-07 [facility] Test 15:14:44 malignant neoplasm of colon (procedure) [code = 847412556] Future Scheduled 2023-01-07 COVID-19 VACCINE (#1) [facility] Test 15:14:44 [code = COVID-19 VACCINE (#1)] Future Scheduled 2023-01-[address] [facility] Test 15:14:44 (procedure) [code = 111828214] Future Scheduled 2023-01-07 [facility] Test 15:14:44 malignant neoplasm of cervix (procedure) [code = 669880245] Future Scheduled 2023-01-07 BREAST CANCER [facility] Test 15:14:44 SCREENING [code = BREAST CANCER SCREENING] Future Scheduled 2023-01-07 SHINGLES VACCINES (1 [facility] Test 15:14:44 of 2) [code = SHINGLES VACCINES (1 of 2)] Future Scheduled 2023-01-07 [facility] Test 15:14:44 malignant neoplasm of colon (procedure) [code = 120381324] Future Scheduled 2023-01-07 [facility] Test 15:14:44 malignant neoplasm of colon (procedure) [code = 281084941] Future Scheduled 2023-01-07 INFLUENZA VACCINE [facility] Test 15:14:44 [code = INFLUENZA VACCINE] Future Scheduled 2022-11-12 [facility] Test 11:34:11 malignant neoplasm of colon (procedure) [code = 815990805] Future Scheduled 2022-11-12 [facility] Test 11:34:11 malignant neoplasm of colon (procedure) [code = 375360797] Future Scheduled 2022-11-12 [facility] Test 11:34:11 malignant neoplasm of colon (procedure) [code = 261482560] Future Scheduled 2022-11-12 COVID-19 VACCINE (#1) [facility] Test 11:34:11 [code = COVID-19 VACCINE (#1)] Future Scheduled 2022-11-12 Hepatitis C screening [facility] Test 11:34:11 (procedure) [code = 175401885] Future Scheduled 2022-11-12 [facility] Test 11:34:11 malignant neoplasm of cervix (procedure) [code = 702662462] Future Scheduled 2022-11-12 BREAST CANCER [facility] Test 11:34:11 SCREENING [code = BREAST CANCER SCREENING] Future Scheduled 2022-11-12 SHINGLES VACCINES (1 Met [facility] Test 11:34:11 of 2) [code = SHINGLES VACCINES (1 of 2)] Future Scheduled 2022-11-12 [facility] Test 11:34:11 malignant neoplasm of colon (procedure) [code = 123949274] Future Scheduled 2022-11-12 [facility] Test 11:34:11 malignant neoplasm of colon (procedure) [code = 645444489] Future Scheduled 2022-11-12 INFLUENZA VACCINE Method [facility] Test 11:34:11 [code = INFLUENZA VACCINE] Future Scheduled 2022-05-28 COVID-19 VACCINE (#1) [facility] Test 18:50:30 [code = COVID-19 VACCINE (#1)] Future Scheduled 2022-05-28 Hepatitis C screening [facility] Test 18:50:30 (procedure) [code = 773204415] Future Scheduled 2022-05-28 [facility] Test 18:50:30 malignant neoplasm of cervix (procedure) [code = 133056518] Future Scheduled 2022-05-28 BREAST CANCER [facility] Test 18:50:30 SCREENING [code = BREAST CANCER SCREENING] Future Scheduled 2022-05-28 SHINGLES VACCINES (1 Met [facility] Test 18:50:30 of 2) [code = SHINGLES VACCINES (1 of 2)] Future Scheduled 2022-05-28 INFLUENZA VACCINE [facility] Test 18:50:30 [code = INFLUENZA VACCINE] Future Scheduled 2022-05-[address] [facility] Test 18:50:30 [code = COLONOSCOPY SCREENING] Future Scheduled 2022-04-25 HEPATITIS B VACCINES [facility] Test 10:19:46 (1 of 3 - 3-dose series) [code = HEPATITIS B VACCINES (1 of 3 - 3-dose series)] Future Scheduled 2022-04-25 COVID-19 VACCINE (#1) [facility] Test 10:19:46 [code = COVID-19 VACCINE (#1)] Future Scheduled 2022-04-[address] [facility] Test 10:19:46 (procedure) [code = 751820500] Future Scheduled 2022-04-25 Screening for [facility] Test 10:19:46 malignant neoplasm of cervix (procedure) [code = 631478590] Future Scheduled 2022-04-25 BREAST CANCER [facility] Test 10:19:46 SCREENING [code = BREAST CANCER SCREENING] Future Scheduled 2022-04-25 SHINGLES VACCINES (1 [facility] Test 10:19:46 of 2) [code = SHINGLES VACCINES (1 of 2)] Future Scheduled 2022-04-25 INFLUENZA VACCINE Method [facility] Test 10:19:46 [code = INFLUENZA VACCINE] Future Scheduled 2022-04-[address] [facility] Test 10:19:46 [code = COLONOSCOPY SCREENING] Encounters Start End Encounter Admission Attending Care Care Encounter Source Date/Time Date/Time Type Type Clinicians Facility Department ID 2023-02-10 2023-02-10 Outpatient Banks, [facility]ATO SURG [id number] [facility] 08:30:00 08:30:00 Elliott [facility]in [facility] 2022-12-27 2022-12-27 Outpatient FOG_Stocks_ AOSM AOSM [id number] [place] 00:00:00 00:00:00 Yissel [id number] [facility] 2022-12-15 2022-12-15 Outpatient FOG_Stocks_ AOSM AOSM [id number] [place] 00:00:00 00:00:00 Yissel [id number] [facility] 2022-12-05 2022-12-05 Outpatient FOG_Stocks_ AOSM AOSM [id number] [place] 00:00:00 00:00:00 Yissel [id number] [facility] 2022-12-05 2022-12-05 Outpatient FOG_Stocks_ AOSM AOSM [id number] [place] 00:00:00 00:00:00 Yissel [id number] [facility] 2022-12-05 2022-12-05 Outpatient FOG_Stocks_ AOSM AOSM [id number] [place] 00:00:00 00:00:00 Yissel [id number] [facility] 2022-11-24 2022-11-24 Outpatient EL Tammie [facility]ATO PAIN [id number] [facility] 08:17:00 08:17:00 [place] [facility] 2022-11-21 2022-11-21 Outpatient FOG_Stocks_ AOSM AOSM [id number] [place] 00:00:00 00:00:00 Yissel [id number] [facility] 2022-11-21 2022-11-21 Outpatient FOG_Stocks_ AOSM AOSM [id number] [place] 00:00:00 00:00:00 Yissel [id number] [facility] 2022-11-18 2022-11-18 Outpatient FOG_Stocks_ AOSM AOSM [id number] [place] 00:00:00 00:00:00 Yissel [id number] [facility] 2022-11-18 2022-11-18 Outpatient FOG_Stocks_ AOSM AOSM [id number] [place] 00:00:00 00:00:00 Yissel [id number] [facility] 2022-11-11 2022-11-11 Outpatient FOG_Stocks_ AOSM AOSM [id number] [place] 00:00:00 00:00:00 Yissel [id number] [facility] 2022-11-11 2022-11-11 Outpatient FOG_Stocks_ AOSM AOSM [id number] [place] 00:00:00 00:00:00 Yissel [id number] [facility] 2022-11-11 2022-11-11 Outpatient FOG_Stocks_ AOSM AOSM [id number] [place] 00:00:00 00:00:00 Yissel [id number] [facility] 2022-11-09 2022-11-09 Outpatient FOG_Stocks_ AOSM AOSM [id number] [place] 00:00:00 00:00:00 Yissel [id number] [facility] 2022-06-06 2022-06-07 Inpatient MIKE Leigh, HCANW ADMI [id number] [facility] 06:00:00 12:17:[address] [place] [address] 2022-05-06 2022-05-06 Outpatient FOG_Stocks_ AOSM AOSM [id number] [place] 00:00:00 00:00:00 Yissel [id number] [facility] 2022-04-29 2022-04-29 Outpatient FOG_Stocks_ AOSM AOSM [id number] [place] 00:00:00 00:00:00 Yissel [id number] [facility] 2022-04-29 2022-04-29 Anthony Cuellar AOSM [place] - Ortho [id number] [place] 00:00:00 00:00:00 Jeana Frank MD: [id number] FOG_Telemed dic [facility], Medicin [place], [facility] [id number] , Ph. 2022-04-25 2022-04-25 Outpatient MIKE FrankSYDNI RADI [id number] [facility] [facility] 10:19:00 10:19:00 Anthony 31 [facility] 2021-11-18 2021-11-18 Inpatient MIKE Frank SYDNI RADI [id number] [facility] 09:15:00 09:15:00 Anthony 11 [facility] 2021-11-13 2021-11-13 Trev Phillips 1.2.840.1 [id number] Methodi 00:00:00 00:00:00 Maryana johnson [id number] 638 Kelly 3.430.2.7 Hospit a .3.459831 l .8 2021-10-21 2021-10-21 Outpatient FOG_Stocks_ AOSM AOSM 551 [id number] Deisy 12:17:00 12:17:00 Yissel [id number] [facility] 2021-08-30 2021-08-23 Inpatient SIERRA PalafoxTO ADMI [id number] [facility] 13:45:00 13:00:00 Anthony 36 [facility] 2021-08-08 2021-08-08 Outpatient GNAIM, [facility] 7501 10:13:00 23:59:00 JORGEMIKAYLA [facility] 2021-01-08 2021-01-08 Outpatient ERGUN, [facility] 174 [id number] 199 [place] 00:00:00 00:00:00 GULCHIN 788 Method i 2021-01-03 2021-01-03 Outpatient ERGUN, [facility] [id number] [place] 00:00:00 00:00:00 GULCHIN 615 Method i 2020-12-19 2020-12-19 Outpatient ERGUN, [facility] [id number] 145 [place] 00:00:00 00:00:00 GULCHIN 463 Method i 2019-04-19 2019-04-19 Emergency EM SIERRA SolaresTO PINO [id number] [facility] 15:05:00 17:00:00 Colby 68 [facility] 2018-12-31 2019-01-01 [facility] 7916 3 Memoria 17:42:20 04:59:59 r [facility] 2018-12-31 2019-01-01 [facility] 7916 3 Memoria 17:42:20 04:59:59 r [facility] 2018-12-31 2018-12-31 [facility] [id number] Memoria 12:42:20 23:59:59 kelly victor [place] 2018-12-31 2018-12-31 Outpatient Lev, [id number] 12:42:20 23:59:59 Kendra Manrique 2010-10-18 2010-10-19 Inpatient nullFlavo [id number] [facility] 05:29:00 15:02:00 r [facility] 00 l [place] Results Test Description Test Time Test Comments Results Result [facility] e Comments - XR FLUORO FOR 2022-11-24 SPINE INJ 10:28:00 [facility] : 1960 Sex: F Patient Name: PASTORA AMADOR Unit No: [id number] EXAMS: CPT CODE: [id number] XR FLUORO FOR SPINE INJ 61641 LUMBAR EPIRADICULAR INJECTION REFERRAL PHYSICIAN: Dr. Frank PREOPERATIVE DIAGNOSIS: Lumbar Radiculitis POSTOPERATIVE DIAGNOSIS: Same as above PROCEDURES PERFORMED: Fluoroscopically guided needle localization of the bilateral L4 and L5 spinal nerves with transforaminal epidurograms and epidural injection of local anesthetic and steroid. FINDINGS: Preinjection VAS 9/10. Postinjection VAS 0/10. Steroid response pending follow-up. ESTIMATED BLOOD LOSS: Minimal ANESTHESIA: TIVA COMPLICATIONS: None DETAILS OF PROCEDURE: After obtaining stable vital signs, informed consent and IV access, with no contraindications, the patient was taken to the operating room and placed in a prone position with all extremities padded and appropriate monitors placed. The patient was sterilely prepped and draped over the lumbosacral spine. Using fluoroscopic visualization the insertion sites were marked for paravertebral approaches and using standard technique, a 25 gauge needle was advanced to the base of each pedicle without paresthesias. Isovue-300 contrast 0.2 mL of was injected at each level incrementally with frequent negative aspirations to produce each epidurogram. There were no signs of intravascular or intrathecal uptake. Bupivicaine 0.75% 0.25 mL with lidocaine 4% 0.5 mL and Decadron 5 mg was then incrementally injected with frequent negative aspirations at each level and again there were no signs of intravascular or intrathecal uptake. The needles were removed and the patient was taken to the PACU in good condition. Image: Image 1 Image: Image 2 at 1028 Reported and signed by: TAMMIE AGUILERA MD CC: Anthony Frank MD Technologist: Poonam Martinez(R) Transcribed D/ (1028) [facility] NAME: PASTORA AMADOR [address] [facility] PHYS: Emmanuel Cox MD [place], [place] [address] : 1960 AGE: 62 SEX: F LOC: GISELE PHONE #: [phone] EXAM DATE: 11/24/2022 STATUS: REG [facility] FAX #: [phone] RAD #: D/C DT PAGE 1 Signed Report Patient Name: PASTORA AMADOR Unit No: [id number] EXAMS: CPT CODE: [id number] XR FLUORO FOR SPINE INJ 22610 (Continued) Orig Print D/T: S: 11/24/2022 (1031) [facility] NAME: PASTORA AMADOR [address] [facility] PHYS: Emmanuel Cox MD [place], [place] [address] : 1960 AGE: 62 SEX: F LOC: GISELE PHONE #: [phone] EXAM DATE: 11/24/2022 STATUS: REG [facility] FAX #: [phone] RAD #: D/C DT PAGE 2 Signed Report BASIC METABOLIC PANEL 2022-06-07 05:45:00 Test Item Value Reference Range Interpretation Comme nts SODIUM (test code = NA) 137 mmol/L 135-145 N POTASSIUM (test code = K) 3.4 mmol/L 3.6-5.0 L CHLORIDE (test code = CL) 104 mmol/L 101-111 N CARBON DIOXIDE (test code 26 mmol/L 21-31 N = CO2) GLUCOSE (test code = GLU) 104 mg/dl 70-100 H BLOOD UREA NITROGEN (test 19 mg/dl 6-20 N code = BUN) GLOMERULAR FILTRATION RATE >=60 max estimate >60 The Glomerular Filtration (test code = GFR) Rate is a calculated parameterbased on serum Creatinine, pat ient age and sex. GFR values less than 60 mL/min/1.73 squ are meters are indicative ofCh ronic Kidney Disease. Values less than 15 mL/min/1.73squa re meters indicate Kidney failure. The calculation for GFR is based on the CKD-EPI (2020) calculation. Th is formulais race indifferen t and is the recommended for denis for GFRby the National [facility] Foundation for Adults.The GFR will not calcul ate if the sex is unknown or i f thepatient's age is <18 year s. CREATININE (test code = 0.82 mg/dL 0.44-1.03 N CREAT) CALCIUM (test code = CA) 8.3 mg/dL 8.5-10.5 L CBC W/AUTO [id number] 05:40:00 Test Item Value Reference Range Interpretation Comments WHITE BLOOD CELL (test code = 12.4 x10 3/uL 3.2-11.5 H WBC) RED BLOOD CELL (test code = 3.79 x10(6)/m 3.70-5.10 N RBC) HEMOGLOBIN (test code = HGB) 11.5 g/dL 12.0-15.0 L HEMATOCRIT (test code = HCT) 35.7 % 35.7-44.8 N MEAN CELL VOLUME (test code = 94 fL 80-100 N MCV) MEAN CELL HGB (test code = MCH) 30.3 pg 26.2-33.8 N MEAN CELL HGB CONCENTRATION 32.2 g/dL 30.0-34.0 N (test code = MCHC) RED CELL DISTRIBUTION WIDTH 14.0 % 11.3-14.5 N (test code = RDW) PLATELET COUNT (test code = 311 x10 3/uL 130-408 N PLT) MEAN PLATELET VOLUME (test code 10.2 fL 8.6-12.6 N = MPV) NEUTROPHIL % (test code = NT%) 74.7 % 40.0-70.0 H IMMATURE GRANULOCYTE % (test 0.3 % 0.0-2.0 N code = IG%) LYMPHOCYTE % (test code = LY%) 14.0 % 20-40 L MONOCYTE % (test code = MO%) 10.6 % 1-10 H EOSINOPHIL % (test code = EO%) 0.1 % 0.0-5.0 N BASOPHIL % (test code = BA%) 0.3 % 0.0-1.0 N NUCLEATED RBC % (test code = 0.0 % 0.0-0.9 N NRBC%) NEUTROPHIL # (test code = NT#) 9.2 x10 3/uL 1.6-7.2 H LYMPHOCYTE # (test code = LY#) 1.73 x10 3/uL 1.1-2.7 N MONOCYTE # (test code = MO#) 1.3 x10 3/uL 0.3-0.8 H EOSINOPHIL # (test code = EO#) 0.0 x10 3/uL 0.0-0.5 N BASOPHIL # (test code = BA#) 0.0 x10 3/uL 0.0-0.1 N BASIC METABOLIC [id number] 09:50:00 Test Item Value Reference Range Interpretation Comments SODIUM (test code 138 mmol/L 135-145 N = NA) POTASSIUM (test 3.6 mmol/L 3.6-5.0 N code = K) CHLORIDE (test 100 mmol/L 101-111 L code = CL) CARBON DIOXIDE 28 mmol/L 21-31 N (test code = CO2) GLUCOSE (test code 115 mg/dl 70-100 H = GLU) BLOOD UREA 21 mg/dl 6-20 H NITROGEN (test code = BUN) GLOMERULAR >=60 max >60 The Glomerular FILTRATION RATE estimate Filtration R ate is a (test code = GFR) calculated parameterbased on serum Creatinin e, patient age and sex. GFR valuesless than 60 mL/min/1.73 square meters are javy cative ofChronic Kidne y Disease. Values less than 15 mL/min/1.73squa re meters indicate Kidney failure. The calculation for GFR is based on the CK D-EPI (2020) calculat ion. This formulais race indifferent and is the recommended formula for GFR by the National Kidney Foundation for Adults.The GFR will not calculate i f the sex is unknown or if thepatient's ag e is <18 years. CREATININE (test 0.70 mg/dL 0.44-1.03 N code = CREAT) CALCIUM (test code 9.4 mg/dL 8.5-10.5 N = CA) THYROID STIMULATING [id number] 09:50:00 Test Item Value Reference Range Interpretation Comments THYROID STIMULATING HORMONE 2.113 uIU/ml 0.450-5.330 N (test code = TSH) - XR CHEST 2 [id number] 09:26:00 [facility] : 1960 Sex: FPatientName: PASTORA AMADOR Unit No: [id number] EXAMS: CPT: [id number] XR CHEST 2 V 81242 EXAM: XR CHEST 2 VIEWS DATE: 06/04/2022 8:56 AM INDICATION: Preop, BMI COMPARISON: None. TECHNIQUE: PA and lateral chestradiographs. FINDINGS: Lines, tubes and hardware: None. Lungs and pleura: Pulmonary vascularity is normal. The lungs are clear. The costophrenic sulci are sharp without effusion. No pneumothorax is identified. Heart and mediastinum: The heart size is normal. The mediastinal contours are normal. Bones and soft tissues: No acute abnormality. IMPRESSION: No acute cardiopulmonary abnormalities. at 0926 Reported and signed by: Nicholas Calderon MD CC:Nahid Leigh MD Technologist: JAMIA Corral Fluoro Time: DAP (Gy m2): Air Kerma (mGy): Trscr Dt/Tm:06/04/2022 (0926) by:[email or web address] Orig Print D/T: S: 06/04/2022 (0930) BATCH NO: N/A Name: PASTORA AMADOR [facility] Phys: Nahid Andrews MD [address] : 1960 Age: 62 Sex: Stewart Hernández [place] [place] Date: 06/04/2022 Status: PRE IN PH: FAX:PAGE 1 Signed ReportCBC W/AUTO [id number] 09:24:00 Test Item Value Reference Range Interpretation Comments WHITE BLOOD CELL (test code = 11.2 x10 3/uL 3.2-11.5 N WBC) RED BLOOD CELL (test code = 4.27 x10(6)/m 3.70-5.10 N RBC) HEMOGLOBIN (test code = HGB) 12.8 g/dL 12.0-15.0 N HEMATOCRIT (test code = HCT) 40.1 % 35.7-44.8 N MEAN CELL VOLUME (test code = 94 fL 80-100 N MCV) MEAN CELL HGB (test code = MCH) 30.0 pg 26.2-33.8 N MEAN CELL HGB CONCENTRATION 31.9 g/dL 30.0-34.0 N (test code = MCHC) RED CELL DISTRIBUTION WIDTH 13.7 % 11.3-14.5 N (test code = RDW) PLATELET COUNT (test code = 315 x10 3/uL 130-408 N PLT) MEAN PLATELET VOLUME (test code 9.6 fL 8.6-12.6 N = MPV) NEUTROPHIL % (test code = NT%) 76.8 % 40.0-70.0 H LYMPHOCYTE % (test code = LY%) 13.3 % 20-40 L MONOCYTE % (test code = MO%) 7.6 % 1-10 N EOSINOPHIL % (test code = EO%) 1.6 % 0.0-5.0 N BASOPHIL % (test code = BA%) 0.5 % 0.0-1.0 N NUCLEATED RBC % (test code = 0.0 % 0.0-0.9 N NRBC%) NEUTROPHIL # (test code = NT#) 8.6 x10 3/uL 1.6-7.2 H LYMPHOCYTE # (test code = LY#) 1.49 x10 3/uL 1.1-2.7 N MONOCYTE # (test code = MO#) 0.9 x10 3/uL 0.3-0.8 H EOSINOPHIL # (test code = EO#) 0.2 x10 3/uL 0.0-0.5 N IMMATURE GRANULOCYTE % (test 0.2 % 0.0-2.0 N code = IG%) BASOPHIL # (test code = BA#) 0.1 x10 3/uL 0.0-0.1 N - MRI L-SPINE W/O [id number] 13:34:00 [facility] : 1960 Sex: F Patient Name: PASTORA AMADOR Unit No: [id number] EXAMS: CPT CODE: [id number] MRI L-SPINE W/O CONT 00088 DIAGNOSIS: 1. At L1-2 there is a slight retrolisthesis and disc bulging is mild left foraminal narrowing without right-sided stenosis. No canal stenosis is seen. Facet degeneration is present. 2. At L2-3 there is a grade 1 retrolisthesis with disc bulging and mild to moderate foraminal narrowing. Facet degeneration is seen with mild canal stenosis. 3. At L3-4 there is a degenerative grade 1 spondylolisthesis with disc bulging. Moderate to marked right and moderate left foraminal narrowing is seen. Moderate constriction of the thecal sac is present due to facet degeneration and epidural fat. 4. At L4-5 there is a degenerative grade 1 spondylolisthesis and disc bulging with moderate right and marked left foraminal narrowing. Impingement on the left L4 nerve root is noted. Marked canal stenosis is seen with facet degeneration. 5. At L5-S1 there is no evidence for disc bulge or herniation, bony canal or foraminal stenosis. 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 COMMENT: COMPARISON: No prior exams available. Scans were performed in the sagittal and axialplanes utilizing T1, T2 and inversion recovery images. Endplate and disc degeneration is seen from L2 to L5. The discs are desiccated. There is a scoliosis convex left. Disc configurations are as described. Spondylitic changes are as noted. The conus is in the expected location. The description these findings assumes a normal count of 5 lumbar type vertebra. at 1334 Reported and signed by: Bernard Velez MD CC: Anthony Frank MD Technologist: Shavon Maher, RT(R) Transcribed D/ (7425) [email or web address].L [facility] NAME: PASTORA AMADOR [address] [facility] PHYS: Anthony Whatley MD : 1960 AGE:62 SEX: F [place] [address] LOC: Y.MRI PHONE #: [phone] EXAM DATE: 04/25/2022 STATUS: REG CLI FAX #: [phone] RAD #: D/C DT PAGE 1 Signed Report Patient Name: PASTORA AMADOR Unit No: [id number] EXAMS: CPT CODE: [id number] MRI L-SPINE W/O CONT 79698 (Continued) OrigPrint D/T: S: 04/25/2022 (1337) 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 at 1035 Reported and signed by: Bernard Velez MD CC: Radha Guerrero MD Technologist: ALYSSA PÉREZ. RT(R) Transcribed D/ (1035) t.SDR.JCL [facility] NAME: PASTORA AMADOR [address] [facility] PHYS: MALATHI.06 - Radha Guerrero : 1960 AGE: 59 SEX: F [place], [place] [address] LOC: YDoc520 A PHONE #: [phone] EXAM DATE: 05/02/2019 STATUS: ADM IN FAX #: RAD #: D/C DT PAGE 1 Signed Report Patient Name: PASTORA AMADOR Unit No: [id number] EXAMS: CPT CODE: [id number] XR KNEE 1 OR 2 [address] RT [address]802 (Continued) Orig Print D/T: S: 05/03/2019 (1039)[facility] NAME: PASTORA AMADOR [address] [facility] PHYS: MALATHI.06 - Radha Guerrero : 1960 AGE: 59 SEX: F [place], [place] [address] LOC: Lisbeth Patiño PHONE #: [phone] EXAM DATE: 05/02/2019 STATUS: ADM IN FAX #: [phone] RAD #: D/C DT PAGE 2 Signed ReportBASIC METABOLIC [id number] 06:24:00 Test Item Value Reference Range Interpretation Comments SODIUM (test code = 139 mmol/L 136-145 N NA) POTASSIUM (test code = 4.8 mmol/L 3.5-5.1 N K) CHLORIDE (test code = 105.0 mmol/L 98-107 N CL) CARBON DIOXIDE (test 22.2 mmol/L 21-32 N code = CO2) GLUCOSE (test code = 107 mg/dL 70-110 N GLU) BLOOD UREA NITROGEN 25 mg/dL 7-18 H (test code = BUN) GLOMERULAR FILTRATION 51.0 >60 Unit o f measure: RATE (test code = GFR) mL/mi n/1.73 q3Rhzpbhias Range:Healthy Adults >90 mL/min/1.73 m2 For Chronic Kidney Disease: Stage II Mild Decrease i n GFR 60-90 Stage III Moderate Decrea se in GFR 30-59 St age IV Severe Decre ase in GFR 15-29 St age V Kidney Failur e <15 CREATININE (test code 1.09 mg/dL 0.55-1.30 N = CREAT) CALCIUM (test code = 8.9 mg/dL 8.2-10.1 N CA) HGB [id number] 05:48:00 Test Item Value Reference Range Interpretation Comments HEMOGLOBIN (test code = HGB) 11.0 g/dL 12-16 L HEMATOCRIT (test code = HCT) 34.2 % 37-47 L COMPREHENSIVE METABOLIC [id number] 18:27:00 Test Item Value Reference Range Interpretation Comments SODIUM (test code = 143 mmol/L 136-145 N NA) POTASSIUM (test code = 3.5 mmol/L 3.5-5.1 N K) CHLORIDE (test code = 105.0 mmol/L 98-107 N CL) CARBON DIOXIDE (test 22.1 mmol/L 21-32 N code = CO2) GLUCOSE (test code = 75 mg/dL 70-110 N GLU) BLOOD UREA NITROGEN 20 mg/dL 7-18 H (test code = BUN) GLOMERULAR FILTRATION 70.9 >60 Unit o f measure: RATE (test code = GFR) mL/mi n/1.73 c1Bmjeocsxe Range:Healthy Adults >90 mL/min/1.73 m2 For Chronic Kidney Disease: Stage II Mild Decrease i n GFR 60-90 Stag e III Moderate Decrease in GFR 30-59 Stage IV Severe Decrease in GFR 15-29 Stage V Kidney Failure <15 CREATININE (test code 0.82 mg/dL 0.55-1.30 N = CREAT) TOTAL PROTEIN (test 7.1 g/dL 6.4-8.2 N code = PROT) ALBUMIN (test code = 3.9 g/dL 3.4-5.0 N ALB) GLOBULIN (test code = 3.2 g/dL 2.2-4.2 N GLOB) ALBUMIN/GLOBULIN RATIO 1.2 0.7-2.0 N (test code = A/G) CALCIUM (test code = 9.3 mg/dL 8.2-10.1 N CA) BILIRUBIN TOTAL (test 0.36 mg/dL 0.2-1.00 N code = BILT) SGOT/AST (test code = 22.0 U/L 15-37 N AST) SGPT/ALT (test code = 19.0 U/L 12-78 N Please note new ALT) normal range. ALKALINE PHOSPHATASE 103 U/L 46-116 N TOTAL (test code = ALKP) PROTHROMBIN [id number] 17:52:00 Test Item Value Reference Range Interpretation Comments PROTHROMBIN TIME 10.7 secs 10.1-12.5 N PATIENT (test code = PTP) INTERNATIONAL NORMAL 0.95 <2.0 RECOMME NDED THERAPEUTIC RATIO (test code = RANGE FOR ORAL INR) ANTICOAGULANTTR EATMENT: CONDITION INRPr ophylaxis of venous throm bosis in 2.0 - 3.0 high- risk medical or surg ical patientsTreatme nt of venous thrombos is 2.0 - 3.0Prevention o f embolism 2.0 - 3.0Prevention o f recurrent embol ism, or 3.0 - 4.5 patie nts with mechanical pros thetic intravascular v godoy IS PATIENT ON ANTICOAGULANTS ? YLIST ANTICOAGULANT/ANTI PLT MEDICATION : AspirinHas Lab been notified if Patient is on Heparin Drip? NOIf Yes, order CBC, OCCULT BLOOD, PT every other day NTHROMBOPLASTIN TIME [id number] 17:52:00 Test Item Value Reference Range Interpretation Comments PTT ACTIVATED (test code = APTT) 36.5 secs 24.9-37.0 N IS PATIENT ON ANTICOAGULANTS ? YLIST ANTICOAGULANT/ANTI PLT MEDICATION : AspirinHas Lab been notified if Patient is on Heparin Drip? NOIf Yes, order CBC, OCCULT BLOOD, PT every other day NCBC W/AUTO [id number] 17:36:00 Test Item Value Reference Range Interpretation Comments WHITE BLOOD CELL (test code = WBC) 8.1 K/mm3 5.8-11.0 N RED BLOOD CELL (test code = RBC) 4.39 M/mm3 4.2-5.4 N HEMOGLOBIN (test code = HGB) 13.1 g/dL 12-16 N HEMATOCRIT (test code = HCT) 39.8 % 37-47 N MEAN CELL VOLUME (test code = MCV) 91 fL 80-98 N MEAN CELL HGB (test code = MCH) 29.8 pg 27-34 N MEAN CELL HGB CONCENTRATION (test 32.9 g/dL 30.8-34.1 N code = MCHC) RED CELL DISTRIBUTION WIDTH (test 13.0 % 11-16 N code = RDW) PLT (test code = PLT) 296 K/mm3 130-400 N MEAN PLATELET VOLUME (test code = 10.9 fL 8.9-12.1 N MPV) NEUTROPHIL % (test code = NT%) 55.5 % 45-70 N LYMPHOCYTE % (test code = LY%) 29.6 % 20-40 N MONOCYTE % (test code = MO%) 9.8 % 3-10 N EOSINOPHIL % (test code = EO%) 4.1 % 1-5 N BASOPHIL % (test code = BA%) 0.9 % 0.0-1.1 N NEUTROPHIL # (test code = NT#) 4.47 K/mm3 2.00-7.50 N LYMPHOCYTE # (test code = LY#) 2.38 K/mm3 1.50-4.00 N MONOCYTE # (test code = MO#) 0.79 K/mm3 0.2-0.8 N EOSINOPHIL # (test code = EO#) 0.33 K/mm3 0.04-0.4 N BASOPHIL # (test code = BA#) 0.07 K/mm3 0.02-0.10 N MANUAL DIFF REQUIRED (test code = NO MANUAL DIFF MDIFF) NUCLEATED RED BLOOD CELL (test 0 % 0-0 N code = NRBC) BLOOD BANK [id number] 15:51:00Negative (10/16/2010 10:51:00) ??[facility] [id number] 15:51:0012.0[facility] ObzaroeDHDMSSYIH5612-85-21 15:51:009.4[facility] RonaaypDAZNWXCQC6585-91-12 15:51:23873.0[facility] [place] XVUSQXBVU1428-29-67 15:51:0027.0[facility] HcybcpbKRFIIMEGJ9959-05-32 15:51:000.9 [facility] FmspvmkKEJDFMIOP5816-98-79 15:51:0089.0[facility] HermannCHEMISTRY 2010-10-16 15:51:004.5[facility] SlygjueXIUOOCYNN5882-03-20 15:51:32411.0[facility] KjdwgphSAGHKIXTL8232-71-86 15:51:0010.5[facility] SkgbrsfBJEVRZHDKV1610-63-22 15:51:000.5[facility] WneoaphTLUXQAVVIA7920-82-62 15:51:002.3[facility] [place] CYAURQEIDI3786-90-25 15:51:0033.1[facility] AmmtresPZIZOVAOWJ6264-30-84 15:51:00 7.2[facility] ItrthczKMQGUKNPPG9831-33-50 15:51:0056.9[facility] HermannHEMATOLOGY 2010-10-16 15:51:003.7[facility] OvgxnogERFEZXHEKZ0297-86-89 15:51:002.2[facility] UodqevdNRVEMBSLQC9180-65-43 15:51:000.5[facility] ZvagxfyTSPHSIJIAP3809-73-49 15:51:000.2[facility] MoptarwPKAIAFOPSP4120-66-37 15:51:000.0[facility] [place] EDSOFIUOGV4399-12-26 15:51:0036.5[facility] NwjrclcCBZYYTVNQV5661-85-48 15:51:00 12.1[facility] XczqaqqBGEBAHVYIM3223-92-48 15:51:00 Test Item Value Reference Range Interpretation Comments MCH (test code = MCH) 31.7 pg 27.0-31.0 H [facility] MywpqpdGZLMQGTLGX1203-43-70 15:51:0033.2[facility] HermannHEMATOLOGY 2010-10-16 15:51:0095.5[facility] WhnxlyeMKZRSNPAVI1359-17-54 15:51:009.0[facility] JldktbyZCTOPZCZQG2558-31-47 15:51:78780.0[facility] ObqgtkeNAYBTNJCZZ5355-03-02 15:51:003.82[facility] GfwgjjeVISHGCYJPB8595-65-74 15:51:0014.3[facility] [place] CWDYLOIVTI6377-80-93 15:51:006.5[facility] LeqstuxSPGYCQIOBZ5857-16-10 15:51:00 Test Item Value Reference Range Interpretation Comments PT (test code = PT) 12.6 s 12.0-14.7 N [facility] YuoeaxaVCJSUGPJNA0071-32-25 15:51:00 Test Item Value Reference Range Interpretation Comments PTT (test code = PTT) 32.0 s 22.9-35.8 N [facility] JkyewybYTPIQZKEXQ1640-98-44 15:51:00 Test Item Value Reference Range Interpretation Comments INR (test code = INR) 0.92 1 0.85-1.17 N [facility] TywrqggVSDPROLYXW0562-27-85 15:51:00Negative *NA*(10/16/2010 10:51:00) ??[facility] EtxrmamGADWWKYSU0158-31-80 15:51:000.9[facility] HermannCHEMISTRY 2010-10-16 15:51:0089.0[facility] QtjnjctVJDNEBLGN7230-19-12 15:51:004.5[facility] NmscbrwWRQBKVDNS6224-24-54 15:51:77193.0[facility] UyftnfjABHSGMNIC5091-83-04 15:51:0010.5[facility] ZcjtukeANXEIBBWHC0597-66-16 15:51:000.5[facility] UKSSEORAEZ1601-41-57 15:51:002.3[facility] LdzbltlXBHJIOAFUM5323-35-83 15:51:00 33.1[facility] RwuhbnaWUHGDIFXYE9075-04-70 15:51:007.2[facility]annHEMATOLOGY 2010-10-16 15:51:0056.9[facility] YhxyitcEVBJVSMFTU8888-98-34 15:51:003.7[facility] WdxesjzWUCEGUMOIP5667-93-16 15:51:002.2[facility] RlnqaykQJZXHTPCHT3254-35-79 15:51:000.5[facility] UtbbxrmPCNOEARHEH9986-60-70 15:51:000.2[facility] QODKUWSPBK4154-64-65 15:51:000.0[facility] KbvupxuYPQQILHIUW8571-11-65 15:51:00 36.5[facility] PbenbfwIUCKDGBUID7726-91-23 15:51:0012.1[facility]annHEMATOLOGY 2010-10-16 15:51:00 Test Item Value Reference Range Interpretation Comments MCH (test code = MCH) 31.7 pg 27.0-31.0 H [facility] FymvncpOUDWOHCFII8251-34-31 15:51:0033.2[facility]annHEMATOLOGY 2010-10-16 15:51:0095.5[facility] FnjeayxTUMSGFPVAO1292-32-48 15:51:009.0[facility] WpmygpbZUCKTCQFOO0845-36-23 15:51:24805.0[facility] HhqgsplTPUWCELUOF4829-76-92 15:51:003.82[facility] DimbfspJSSDVRREUO7396-06-75 15:51:0014.3[facility] MPZRHFPWTZ2392-16-64 15:51:006.5[facility] GseixkkVFXHPZXTPD0908-01-42 15:51:00 Test Item Value Reference Range Interpretation Comments PT (test code = PT) 12.6 s 12.0-14.7 N [facility] XlaonwnCVKDBANVBF8909-82-11 15:51:00 Test Item Value Reference Range Interpretation Comments PTT (test code = PTT) 32.0 s 22.9-35.8 N [facility] XyokajcQKJZIEVZKO5360-89-90 15:51:00 Test Item Value Reference Range Interpretation Comments INR (test code = INR) 0.92 1 0.85-1.17 N [facility] [id number] 15:51:00Negative *NA*(10/16/2010 10:51:00) [facility] [id number] 15:51:00Negative (10/16/2010 10:51:00) ??[facility] [id number] 15:51:0012.0[facility] [id number] 15:51:009.4[facility] DccqkzkTHTIEEKHL6737-65-63 15:51:74947.0 [facility] TmvrdoiDZKHQMMMF7183-16-51 15:51:0027.0[facility] Notes Date/Time Note Provider Source 2022-06-07 10:58:00-00:00 [facility] ([facility]) Med Order Sheet REPORT #: [id number] REPORT STATUS: Signed DATE: 06/07/22 TIME: 1058 PATIENT: PASTORA AMADOR UNIT #: [id number] ROOM #: N.6015 BED: 1 : 58 AGE: 62 SEX: F ATTEND: Christofer Leigh MD ADM AUTHOR: Nahid Leigh MD ATTENTION *EDITS and/or ADDENDA must be made in Patient Ke eper for this note. * * Edits and ammendments created in [facility] are not visible * * in Patient Keeper or the legal medical record (HPF). * Discharge Medication Reconciliation DISCHARGE MEDICATION LIST Acetaminophen Tab (Tylenol Tab) Dose: 325 MG PO Q4H PRN back pain APAP/Diphenhydramine (NF) (Tylenol Pm Ex-Strengt h (NF)) Dose: 1 EACH PO BEDTIME PRN pain insomnia CALCIUM IBANDONAATE Dose: PO MONTLY Carbatrol capsule, extended release (carbamazepi ne) Dose: 200 MG PO BID cloNIDine Tab (Catapres Tab) Dose: 0.1 MG PO Q1H PRN bp over [address] Cap (Cymbalta DR Cap) Dose: 60 MG PO BID for fibromaylagia famotidine tablet Dose: 40 MG PO DAILY hydrALAZINE HCL tab (Apresoline tab) Dose: 50 MG PO BID Methocarbamol Tab (Robaxin Tab) Dose: 500 MG PO TID PRN pain Multivitamin Tab (Theragran Tab) Dose: 1 TAB PO DAILY Mupirocin Ointment 2% (Bactroban Ointment 2%) Dose: 1 APPLIC Topical TID PRN rash - Apply a small amount EXTERNALLY three times d aily x5 days. Neurontin tab (gabapentin) Dose: 600 MG PO TID PRN back pain olmesartan tablet Dose: 40 MG PO DAILY QUILPTA Dose: PO QPM STOPPED HOME MEDICATIONS Dc'd: Aleve tablet (naproxen sodium) 220 MG PO Q 8H PRN back pain Dc'd: Coricidin HBP 10 mg-200 mg capsule (dextro methorphan-guaifenesin) 1 CAP PO Q4H PRN congestion Dc'd: diphenhydrAMINE capsule 25 MG PO Q4H PRN i tchingDc'd: HCTZ Tab (Hydrochlorothiazide Tab) 25 MG PO DAILYDc'd: NI FEdipine XL Tab (Procardia XL Tab) 60 MG PO BID STOPPED HOSPITAL MEDICATIONS Dc'd: diphenhydrAMINE Inj (Benadryl Inj) 12.5MG IV Q6H PRN itchingDc'd: Enoxaparin 60mg/0.6mL Inj (Lovenox 60mg/0.6mL In j) 50MG SubQ [id number]'d: Gabapentin Oral Liquid (Neurontin Oral Liquid) 2 50MG PO Q8HRDc'd: Insulin (Lispro) Inj (HumaLog Inj ) 0 UNITS SubQ ASDIRDc 'd: KCl 20mEq + 1/2NS 1000mL (1/2NS 1000mL + KCL 20mEq) 20MEQ 80 MLS/HR IV Dc 'd: Labetalol Inj (Trandate Inj) 10MG IV Q6H PRN sbp > 160 and hr > 70Dc'd: Lidocaine Patch 5% (Lidoderm Patch 5%) 1PATCH Topical DAILYDc'd: Metocloprami de Inj (Reglan Inj) 10MG IV Q6HR X 3 dosesDc'd: morphine Inj (morphine Inj) 4MG IV Q4H PRN severe pain (score 7-10)Dc'd: Naloxone Inj (Narcan Inj) 0.4M G IV Q2M PRN respiratory and high school admissions representative depressionDc'd: Ondansetron Inj (Zofran Inj) 4MG IV Q6HRDc'd: Patient's Own Medication POM=QULIPTA 10 mg PO QPMDc'd: Pro methazine Inj (Phenergan Inj) 12.5MG IV Q6H PRN nausea and vomitingin Sodium C hloride 0.9% (NS) 50ML at 1058 ATTENTION *EDITS and/or ADDENDA must be made in Patient Ke eper for this note. * * Edits and ammendments created in [facility] are not visible * * in Patient Keeper or the legal medical record (HPF). * RPT #: [id number] END OF REPORT 2022-06-07 10:57:00-00:00 [facility] ([facility]) General Surg. D/C Summary REPORT #: [id number] REPORT STATUS: Signed DATE: 06/07/22 TIME: 1057 PATIENT: PASTORA AMADOR UNIT #: [id number] ROOM #: N.6015 BED: 1 : 58 AGE: 62 SEX: F ATTEND: Christofer Leigh MD ADM AUTHOR: Nahid Leigh MD ATTENTION *EDITS and/or ADDENDA must be made in Patient Ke eper for this note. * * Edits and ammendments created in [facility] are not visible * * in Patient Keeper or the legal medical record (HPF). * -- PROBLEMS/PROCEDURES -- ADMISSION DATE: 06/06/22 DISCHARGE DATE: 06/07/22 DISCHARGE DIAGNOSES: - Morbid obesity with BMI of 40.0-44.9, adult -- HOSPITAL COURSE -- HOSPITAL COURSE: Patient doing well s/p gastric bypass . Patient tolerating liquid diet well, ambulating without difficulty and has had return of normal bowel function. -- DISCHARGE MEDICATIONS -- ALLERGIES: Sulfa (Sulfonamide Antibiotics) (Intermediate - Allergy) DISCHARGE MEDICATIONS: Acetaminophen Tab (Tylenol Tab) 325 MG PO Q4H WA N back pain APAP/Diphenhydramine (NF) (Tylenol Pm Ex-Strengt h (NF)) 1 EACH PO BEDTIME PRN pain insomnia CALCIUM IBANDONAATE PO MONTLY CALCIUM IBANDONAA TE Carbatrol capsule, extended release (carbamazepi ne) 200 MG PO BID cloNIDine Tab (Catapres Tab) 0.1 MG PO Q1H PRN b p over [address] Cap (Cymbalta DR Cap) 60 MG PO BID for fibromaylagia famotidine tablet 40 MG PO DAILY hydrALAZINE HCL tab (Apresoline tab) 50 MG PO BI D Methocarbamol Tab (Robaxin Tab) 500 MG PO TID WA N pain Multivitamin Tab (Theragran Tab) 1 TAB PO DAILY Mupirocin Ointment 2% (Bactroban Ointment 2%) 1 APPLIC Topical TID PRN rash (Apply a small amount EXTERNALLY three times da nayely x5 days.) Neurontin tab (gabapentin) 600 MG PO TID PRN geovanna k pain olmesartan tablet 40 MG PO DAILY QUILPTA PO QPM QUILPTA ADDTIONAL DETAIL: Carafate 1 gm PO QID Protonix 40 mg PO Q D Lovenox 40 mg SQ Q day Zofran 4 mg SL q 4 hr PRN N/V Tylenol with codeine elixir 15 mg PO q 4 hr PRN pain -- DISCHARGE INSTRUCTIONS -- PK DISCHARGE ORDERS: Discharge w/Instructions - W/O Additional Instru ctions (No Mono) Details: Discharge order:: Yes Discharge to:: Home/Self Care Diet:: Bariatric Liquid Diet Activity:: Light Duty, No Lifting gt;20lbs Additional Discharge Routines:: None Details: DC Order - No [facility] 2020.2 None ADDTIONAL DISCHARGE INSTRUCTIONS: Patient warned of signs and symptoms of possible complication and knows to seek medical attention immediately should any of thes e occur. We will discharge home on li quid diet with instructions to follow-up with me in 1 week. Patient has been extensively educated on the importance of hydration and avoidance of certain foods particularly, spi cy, greasy or sweet. Patient also educated regarding pace of eating and impor tance of sipping. Patient may resume normal activity though no str enuous activity. Shower as normal. Discharge medications include: Carafate and Prot mar for GI prophylaxis, Lovenox for DVT prophylaxis, Zofran as needed fo r nausea, Tylenol 3 as needed for pain, resume duran e medications as instructed. Emergency Instructions: The patient was instructed to pres ent to the nearest Emergency Department or call 911 should their symptoms ret urn or worsen.; -- OBJECTIVE -- VITALS (06/06 10:58 - 06/07 10:58): Temperature C: 36.8 (36.4 - 36.9) Pulse Rate 74 (69 - 82) Respiratory rate: 18 (14 - 23) BP: 141/73 (116/62 - 141/76) Blood pressure source: Monitor I/Os (06/06 07:00 - 06/07 07:00): Net 2,090.00 Intake 2,090.00 -EXAM- GENERAL: Well developed, well nourished, in no a pparent distress. LUNGS: Clear bilaterally with normal respiratory effort. HEART: Regular rate and rhythm, normal S1, S2, n o murmurs, no rubs, no gallops, no clicks. ABDOMEN: Soft, non-tender, no organomegaly, no m asses noted. EXTREMITIES: No clubbing, no cyanosis, no edema. NEUROLOGICAL: No focal deficits, cranial nerves II-XII grossly intact, normal sensation, normal reflexes, normal coord ination, normal muscle strength, normal tone. -- DATA -- LABS CBC W/AUTO DIFF (06/07/22 04:38) WHITE BLOOD CELL 12.4H H RED BLOOD CELL 3.79 HEMOGLOBIN 11.5L L HEMATOCRIT 35.7 MEAN CELL VOLUME 94 MEAN CELL HGB 30.3 MEAN CELL HGB CONCENTRATION 32.2 RED CELL DISTRIBUTION WIDTH 14.0 PLATELET COUNT 311 MEAN PLATELET VOLUME 10.2 NEUTROPHIL % 74.7 H IMMATURE GRANULOCYTE % 0.3 LYMPHOCYTE % 14.0 L MONOCYTE % 10.6 H EOSINOPHIL % 0.1 BASOPHIL % 0.3 NUCLEATED RBC % 0.0 NEUTROPHIL # 9.2 H LYMPHOCYTE # 1.73 MONOCYTE # 1.3 H EOSINOPHIL # 0.0 BASOPHIL # 0.0 BASIC METABOLIC PANEL (06/07/22 04:38) SODIUM 137 POTASSIUM 3.4L L CHLORIDE 104 CARBON DIOXIDE 26 GLUCOSE 104H H BLOOD UREA NITROGEN 19 GLOMERULAR FILTRATION RATE >=60 max estimate CREATININE 0.82 CALCIUM 8.3 L Signed in PatientKeeper by Nahid Leigh on 06/07/22 at 10:58 at 1058 ATTENTION *EDITS and/or ADDENDA must be made in Patient [facility] for this note. * * Edits and ammendments created in [facility] are not visible * * in Patient Keeper or the legal medical record ([facility]). * RPT #: [id number] END OF REPORT 2022-06-06 11:36:00-00:00 [facility] ([facility]) Operative Report REPORT #: [id number] REPORT STATUS: Signed DATE: 06/06/22 TIME: 1136 PATIENT: PASTORA AMADOR UNIT #: [id number] ROOM #: N.0902 BED: 1 : 58 AGE: 62 SEX: F ATTEND: Christofer Leigh MD ADM AUTHOR: Nahid Leigh MD ATTENTION *EDITS and/or ADDENDA must be made in Patient [facility] for this note. * * Edits and ammendments created in [facility] are not visible * * in Patient Keeper or the legal medical record ([facility]). * -- OPERATION -- SURGERY START DATE/TIME: 2022-06-06 11:36 PRE-OPERATIVE DIAGNOSIS: MORBID OBESITY POST-OPERATIVE DIAGNOSIS: MORBID OBESITY INDICATION(S): Pleasant patient with history of morbid obesity refractory to medical management. Patient comes now for surgical inter vention as a last resort to achieving the significant weight loss required t o improve health. Patient understands fully that the gastric bypas s procedure is a procedure designed to obtain the significant weight loss required to i mprove health but that the amount of weight loss achiev ed, as well as duration cannot be guaranteed and is highly depend upon exercise diet and compliance. Patient further understands, that untoward side effects may occur that cannot be predicted at this time to include but not limited to, gastroesophageal ref lux, bleeding, breakdown of staple lines, sepsis and even . Pat ient has been given the opportunity to ask questions which been answered to their satis faction and patient asked to proceed. NAME OF PROCEDURE: Laparoscopic Gastric Bypass Procedure TIME OUT COMPLETED: Yes SURGEON: Nahid Leigh MD CADD OPERATOR(S): None ANESTHESIA: General ESTIMATED BLOOD LOSS: 5 ml's FINDINGS: SAME SPECIMEN(S) REMOVED AND/OR ALTERED: NONE COMPLICATION(S): None; -- DESCRIPTION -- DESCRIPTION OF TECHNIQUE/PROCEDURE: After informed consent was obtained patient was brought to the operating room and placed on the operative table in supine posi tion. After suitable level of anesthesia was achieved, patient prepped and carolina ped in sterile fashion using chlorhexidine. A timeout procedure was performed and once complete, a supraumbilical incision was performed using a #1 5 blade through which a 5 mm trocar was introduced percutaneous. The abdominal cavity was insufflated to 15 cm of water pressure and a 5 mm epigastric troca r, as well as bilateral subcostal 5 mm trocars and bilateral sub costal 12 mm trocars were placed under direct visualization. Grasping forceps were used to identify the ligament of Treitz . Once identified, 75 cm was agus ured distal on the small bowel and the bowel was transected at this point using an Heathcote linear stapler device with white loads. The mesentery was then divided down towards the mesenteric root using harmonic scalpel. 100 cm was then measured distal on the small bowel and at this point a jejunojejunostomy was performed. Enterotomies were created using a harmonic scalpel and the anastomosis was completed using the Heathcote stapling device. The mesenteric defect was then repaired using 0 Surgidac sutures. Once complete, attention was turned to the proximal abdomen. The patient was placed in reverse Trendelenburg posi tion and the left lobe of the liver was elevated cephalad using a Jairon re tractor. The fundus of the stomach was rotated medially and the gastrophren ic ligament was incised. A window was then created along the lesser curve o f stomach using the harmonic scalpel allowing access to the lesser sac. A maine ear stapler device with blue loads was then used to transect the stomach hori zontally forming the proximal pouch of approximately 30 to 40 cc. The anvil of a 25 mm Orvil device was introduced via the oropharynx into the proximal pouch. A gastrotomy was performed and the anvil was seated in place. The Susan-en-Y limb was then brought into the proximal abdomen and an enterotomy was created at its end. The distal portion of th e EEA device was introduced transabdominally, advanced into the lumen of the bowel and the spike was advanced through the bowel wall and attached to the anvil in the proximal stomach. The device was closed fired and removed . The remaining ostomy was closed using linear stapler device with white lo ads. The anastomosis was inspected and noted to be intact and hemostatic. Once hemostasis was assured, the gas was allowed to escape and the fascial de fects were repaired using 0 Vicryl suture followed by closure of the skin ed ge using 4-0 Monoaryl. A Sterile dressing was applied. The patien t tolerated the procedure well without complication and [facility] condition. Signed in PatientKeeper by Nahid Leigh on 06/06/22 at 11:37 at 1137 ATTENTION *EDITS and/or ADDENDA must be made in Patient [facility] for this note. * * Edits and ammendments created in [facility] are not visible * * in Patient Keeper or the legal medical record ([facility]). * RPT #: [id number] END OF REPORT 2022-06-06 11:33:00-00:00 [facility] ([facility]) Med Order Sheet REPORT #: [id number] REPORT STATUS: Signed DATE: 06/06/22 TIME: 1133 PATIENT: PASTORA AMADOR UNIT #: [id number] ROOM #: N.0902 BED: 1 : 58 AGE: 62 SEX: F ATTEND: Christofer Leigh MD ADM AUTHOR: Nahid Leigh MD ATTENTION *EDITS and/or ADDENDA must be made in Patient [facility] for this note. * * Edits and ammendments created in [facility] are not visible * * in Patient Keeper or the legal medical record ([facility]). * Admission Medication Reconciliation -- CONTINUED / CHANGED HOME MEDICATIONS -- Home: Acetaminophen Tab (Tylenol Tab) 325 MG PO Q4H PRN back pain Hosp: Existing: Acetaminophen Oral Liquid (Tylen ol Oral Liquid) 1000MG PO ONCALL Home: Carbatrol capsule, extended release (carba mazepine) 200 MG PO BID Hosp: Carbatrol capsule, extended release (carba mazepine) 200 MG PO BID Home: cloNIDine Tab (Catapres Tab) 0.1 MG PO Q1H PRN bp over 170 Hosp: cloNIDine Tab (Catapres Tab) 0.1 MG PO Q1H PRN bp over 170 Home: DULoxetine DR Cap (Cymbalta DR Cap) 60 MG PO BID for fibromaylagia Hosp: DULoxetine DR Cap (Cymbalta DR Cap) 60 MG PO BID Home: hydrALAZINE HCL tab (Apresoline tab) 50 MG PO BID Hosp: hydrALAZINE HCL tab (Apresoline tab) 50 MG PO BID Home: Methocarbamol Tab (Robaxin Tab) 500 MG PO TID PRN pain Hosp: Methocarbamol Tab (Robaxin Tab) 500 MG PO TID PRN pain Home: Multivitamin Tab (Theragran Tab) 1 TAB PO DAILY Hosp: Multivitamin Tab (Theragran Tab) 1 TAB PO DAILY Home: Neurontin tab (gabapentin) 600 MG PO TID P RN back pain Hosp: Neurontin tab (gabapentin) 600 MG PO TID P RN back pain Home: olmesartan tablet 40 MG PO DAILY Hosp: Olmesartan Tab (NF) (Benicar Tab (NF)) 40 MG PO DAILY Home: QUILPTA PO QPM Hosp: Qulipta tablet (atogepant) 10 mg Oral QPM -- STOPPED HOME MEDICATIONS -- Home: Aleve tablet (naproxen sodium) 220 MG PO Q 8H PRN back pain Home: APAP/Diphenhydramine (NF) (Tylenol Pm Ex-S trength (NF)) 1 EACH PO BEDTIME PRN pain insomnia Home: CALCIUM IBANDONAATE PO MONTLY Home: Coricidin HBP 10 mg-200 mg capsule (dextro methorphan-guaifenesin) 1 CAP PO Q4H PRN congestion Home: diphenhydrAMINE capsule 25 MG PO Q4H PRN i tching Home: famotidine tablet 40 MG PO DAILY Home: HCTZ Tab (Hydrochlorothiazide Tab) 25 MG P O DAILY Home: Mupirocin Ointment 2% (Bactroban Ointment 2%) 1 APPLIC Topical TID PRN rash (Apply a small amount EXTERNALLY three times da nayely x5 days.) Home: NIFEdipine XL Tab (Procardia XL Tab) 60 MG PO BID at 1133 ATTENTION *EDITS and/or ADDENDA must be made in Patient Ke eper for this note. * * Edits and ammendments created in [facility] are not visible * * in Patient Keeper or the legal medical record ([facility]PF). * [facility] #: [id number] END OF REPORT 2022-06-04 09:14:00-00:00 [id number] [facility] [address] [place] [address] PATIENT NAME: PASTORA AMADOR ADMIT DATE: 06/06/22 ACCOUNT NO: [id number] ROOM NO: N6015 AGE: 62 REPORT TYPE: ELECTROCARDIOGRAM SEX: F ADMITTING PHYSICIAN:Nahid Leigh MD ATTENDING PHYSICIAN:Nahid Leigh MD Order: [id number] Test Reason : Resting 12-lead ECG Test Date/Time Stamp: ThuJun 04 2022 09:14:36 Blood Pressure : / mmHG Vent. Rate : 079 BPM Atrial Rate : 000 BPM P-R Int : 159 ms QRS Dur : 089 ms QT Int : 395 ms P-R-T Axes : 075 057 046 degree s QTc Int : 454 ms SINUS RHYTHM LOW QRS VOLTAGE IN PRECORDIAL LEADS NONSPECIFIC ST T-WAVE ABNORMALITY BORDERLINE ECG Reviewed by Confirmed by MD Masters Yasir ([id number]) on 3 1:29:55 PM Referred By: Nahid Leigh Confirmed by:Nishant Masters MD Electronically Signed by Nishant Masters MD on 07/31 at 1329 PATIENT NAME PASTORA AMADOR 5 2019-06-29 16:30:00-00:00 [facility] Discharge Summary REPORT#:[id number] REPORT STATUS: Signed DATE:06/29/19 TIME: 1630 PATIENT: PASTORA AMADOR UNIT #: [id number] [facility] AGE: 59 SEX: F ATTEND: Radha Guerrero MD ADM AUTHOR: Radha Guerrero MD * ALL edits or amendments must be made on the [employer] [facility]/computer document * PCP PCP Discharge to: home General Information Date of discharge: 05/04/19 Hospital course: Discharge Diagnosis: Right Knee Degenerative Dis ease Procedure: Right Knee Arthroplasty Hospital Course and Findings The patient underwent the pr ocedure without incident. Findings were significant for degenerative disease of the knee. The patien t was hemodynamically and medically monitored during the postoperative per iod. Anticoagulation was instituted for postoperative DVT prophylaxis. Th e patient was progressively able to tolerate PO pain med ications and the appropriate diet. Physical therapy was instituted, with a progressive ability to am bulate and perform exercises. The patient was eventually deemed stable and saf e for discharge. At discharge, the patient was comfortabl e, with a controlled pain level. There were no chest or abdominal symptoms present. Dis charge physical examination demonstrated stable vital signs and no acute dis tress. The patient had an intact wound with no signifi cant drainage, and no calf tenderness and a negative Hilton s sign bilaterally. There were no neurolog ic or vascular deficits or changes from the preoperative state. Disposition: Discharged to home Discharge Condition: Stable Instructions: Instruction sheet given to patient Activity: Ambulate with assistance, with weight- bearing as instructed in the hospital. Diet: As per preoperatively Prescriptions 1. Pain Medications: As per discharge prescription, with progressive weaning as pain decreases 2. Anticoagulation: As per discharge prescription, or PreOp anticoa gulant, as discussed with patient 3. Physical Therapy: Will undergo PT for gait training, mobilization , qtdxn-gq-vhgigy, and strengthening. Patient was informed that they ne ed to arrange for therapy as quickly as possible. The imp ortance of early advancement of mdecq-kk-lsvltk with home exercises, and physical therapy was stresse d to the patient. Follow-up Appointment: Patient instructe d to arrange appointment for an office visit in 2 weeks Med Rec Med Rec Discharge meds: Stop taking the following medications: ACETAMINOPHEN (TYLENOL) 500 MG TAB 500 MILLIGRAM ORAL EVERY 4 HOURS NEEDED. as needed for PAIN Acetaminophen/diphenhydrAMINE (Tylenol PM) 1 EAC H TAB 1 EACH ORAL BEDTIME. as needed for SLEEP IBUPROFEN (ADVIL) 200 MG TAB 200 MILLIGRAM ORAL EVERY 4 HOURS NEEDED. as needed for PAIN [LEANN BACK BODY] 1 TABLET ORAL TWICE DAILY NEEDED. as needed for PAIN IBANDRONATE (BONIVA) 150 MG TAB 150 MILLIGRAM ORAL Q30D [TURMERIC CURCUMIN] 1,000 MILLIGRAM ORAL TWICE DAILY. CRANBERRY EXTRACT (CRANBERRY EXTRACT) 250 MG CAP 500 MILLIGRAM ORAL THREE TIMES A DAY. Continue taking these medications: GABAPENTIN (NEURONTIN) 600 MG TAB 1,800 MILLIGRAM ORAL BEDTIME. Comments: AND 600 MG PO Q AM GABAPENTIN (NEURONTIN) 600 MG TAB 600 MILLIGRAM ORAL EVERY MORNING. DULoxetine DR (CYMBALTA) 60 MG CAP.DR 60 MILLIGRAM ORAL BEDTIME. IRBESARTAN (AVAPRO) 300 MG TAB 300 MILLIGRAM ORAL DAILY. TOPIRAMATE (TOPAMAX) 100 MG TAB 100 MILLIGRAM ORAL DAILY. Comments: TAKEN WITH ASPIRIN DAILY diphenhydrAMINE (BENADRYL) 25 MG CAP 25 MILLIGRAM ORAL TWICE DAILY NEEDED. as nee ded for ALLERGIES guaiFENesin/DEXTROMETHORPHAN (CORICIDIN HBP CHEST CONGEST COUGH 200/10 MG) 200 MG-10 MG CAP 1 CAPSULE ORAL EVERY 4 HOURS NEEDED. as need ed for ALLERGY NAPROXEN (NAPROSYN) 500 MG TAB 500 MILLIGRAM ORAL TWICE DAILY. Comments: AM/HS FOLIC ACID (FOLIC ACID) 0.4 MG TAB 0.4 MILLIGRAM ORAL DAILY. CHOLECALCIFEROL (VITAMIN D3) (VITAMIN D3) 5,000 UNIT TAB 6,000 UNITS ORAL DAILY. [EXCEDRIN MIGRAINE] 2 TABLET ORAL DAILY NEEDED. as needed for DE GRAINES [VITAMIN B COMPLEX] 1 TABLET ORAL DAILY. Comments: TAKES SUPER B COMPLEX TOPIRAMATE (TOPAMAX) 100 MG TAB 100 MILLIGRAM ORAL BEDTIME. GABAPENTIN ER (GRALISE) 300 MG TAB.SR.24H 300 MILLIGRAM ORAL DAILY. Comments: AND 1800 MG AT BEDTIME SIMVASTATIN (ZOCOR) 20 MG TAB 20 MILLIGRAM ORAL BEDTIME. RANITIDINE (ZANTAC) 300 MG TAB 300 MILLIGRAM ORAL BEDTIME. CYANOCOBALAMIN (VITAMIN B-12) 2,500 MCG TAB.SL 5,000 MICROGRAM SUBLINGUAL DAILY. MAGNESIUM CHLORIDE ER (SLOW-MAG) 71.5 MG TAB.SA 128 MILLIGRAM ORAL DAILY. ARGININE (L-ARGININE) 500 MG CAP 500 MILLIGRAM ORAL TWICE DAILY. LUTEIN/ZEAXANTHIN (LUTEIN 15 MG) 15 MG-0.7 MG CA P 50 MILLIGRAM ORAL DAILY. BIOTIN (BIOTIN) 800 MCG TAB 5,000 MICROGRAM ORAL DAILY. amLODIPine (NORVASC) 5 MG TAB 5 MILLIGRAM ORAL TWICE DAILY. Start taking the following new medications: ASPIRIN EC (ECOTRIN) 81 MG TAB.EC 81 MILLIGRAM ORAL TWICE DAILY. Qty = 60 No Refills DOXYCYCLINE HYCLATE (VIBRA-TAB) 100 MG TAB 100 MILLIGRAM ORAL EVERY 12 HOURS. Qty = 14 No Refills HYDROcodone/APAP (NORCO 10/325) 10 MG-325 MG TAB 1 TABLET ORAL EVERY 6 HOURS NEEDED. as neede d for PAIN SCALE 7-10, SECOND LINE Qty = 28 No Refills METHOCARBAMOL (ROBAXIN) 500 MG TAB 500 MILLIGRAM ORAL THREE TIMES DAILY NEEDED. as needed for MUSCLE SPASMS Qty = 60 No Refills traMADol (ULTRAM) 50 MG TAB 50 MILLIGRAM ORAL EVERY 4 HOURS NEEDED. as n eeded for PAIN SCALE 4-6 Days = 10 Qty = 60 No Refills Discharge Instructions Wound/dressing care: Keep wound clean and dry, O K to shower tomorrow Equipment/supplies: Walker Follow-up Appointments Attending Physician: Attending Physician: Radha Guerrero MD Follow up: In 1-2 weeks at 1631 [facility] #:[id number] END OF REPORT 2019-05-04 10:23:00-00:00 [facility] Clinical Note REPORT#:[id number] REPORT STATUS: Signed DATE:05/04/19 TIME: 1023 PATIENT: PASTORA AMADOR UNIT #: [id number] ROOM/BED: [address] : 58 AGE: 59 SEX: F ATTEND: Radha Guerrero MD ADM AUTHOR: Luis Carlos Gould MD * ALL edits or amendments must be made on the [employer]/computer document * Clinical Note Note: [facility] Luis Carlos kearns M.D. (cell text [phone]) Assessment/Plan 1.) Anemia of acute blood loss- .Hgb 11.0 -05/03, asymptomatic. 2.) POD#2 Right TKA- .acute pain control. Antico agulation as per Dr. Guerrero. 3.) Hypertension- .follow BP and hold Rxs if SBP <120. 4.) Hyperlipidemia GERD Hx of Migaines BLAKE- .con tinue on Rx. CPAP. * OK for DISCHARGE per Internal Medicine. Prior Events/Overnight: Uneventful. Chief Complaint: Knee pain improved Objective Vital Signs Date Temp Pulse Resp B/P B/P Mean Pulse Ox FiO2 05/03-05/04 96.3-99.0 68-80 14-20 100-131/56-72 76.2-91.8 95-100 28 Gen: Alert, oriented, in mild discomfort, morbil dly obese Neck: No Masses, No Thyromegaly- CV: Regular Rate Rhythm / Edema- no significant Resp: Clear To Ascultation / Normal Respiratory Effort ABD: NonTender / NonDistended MS/Skin: No sign of compartment syndrome / +ankl e DF/PF / nl capillary refill of toes Other: Labs/X-ray: none Luis Carlos Santiago M.D. at 1204 RPT #:[id number] END OF REPORT 2019-05-03 08:56:00-00:00 [facility] ([facility]) Clinical Note REPORT#:[id number] REPORT STATUS: Signed DATE:05/03/19 TIME: 0856 PATIENT: PASTORA AMADOR UNIT #: [id number] ROOM/BED: [address] : 56 AGE: 59 SEX: F ATTEND: Radha Guerrero MD ADM AUTHOR: Luis Carlos Gould MD * ALL edits or amendments must be made on the [employer]/computer document * Clinical Note Note: [facility] Luis Carlos kearns M.D. (cell text [phone]) Assessment/Plan 1.) Anemia of acute blood loss- .Hgb 11.0, asymp tomatic. 2.) S/p Right TKA- .acute pain control. Anticoag ulation as per Dr. Guerrero. 3.) Hypertension- .follow BP and hold Rxs if SBP <120. 4.) Hyperlipidemia GERD Hx of Migaines BLAKE- .con tinue on Rx. CPAP. Prior Events/Overnight: DId not sleepy well (2nd to discomfort - used to sleeping on side). Chief Complaint: Knee pain. Objective Vital Signs: Date Time Temp Pulse Resp B/P B/P Pulse O2 O2 F low FiO2 Mean Ox Delivery Rate 05/03 0710 97.3 76 18 125/76 92.0 99 Nasal 3.00 0000 cannula 05/03 0417 97.2 89 20 129/68 92 98 Nasal cannula 05/03 0224 98 Nasal 3.542869 32 cannula 05/02 2227 97.5 79 18 109/53 76 99 Nasal cannula 05/02 2024 94 Nasal 3.259860 32 cannula 05/02 191 97.3 80 20 120/55 86 98 Nasal cannula 05/02 1715 98 Nasal 3.338159 cannula 05/02 1532 98.1 90 18 91/58 69.0 96 Nasal 3.000 000 cannula 05/02 1215 99 Nasal 3.088670 cannula 05/02 1208 Nasal 3.968383 cannula 05/02 1137 97.9 88 18 130/76 94.3 96 Nasal 3.00 0000 cannula 05/02 1100 81 19 132/69 99 Nasal 3.302732 cannula 05/02 1045 86 17 131/67 99 Nasal 3.038124 cannula 05/02 1032 76 16 124/72 98 Nasal 3.854704 cannula 05/02 1017 Nasal 3.351204 cannula 05/02 1015 87 12 137/84 97 Nasal 3.700452 cannula 05/02 1007 Simple 8.108742 mask 05/02 1000 82 12 129/71 98 Nasal 3.867744 cannula 05/02 0947 97.7 90 12 145/70 96 Simple 8.851719 mask Gen: Alert, oriented, in mild discomfort, morbil dly obese Neck: No Masses, No Thyromegaly- CV: Regular Rate Rhythm / Edema- no significant Resp: Clear To Ascultation / Normal Respiratory Effort ABD: NonTender / NonDistended MS/Skin: No sign of compartment syndrome / +ankl e DF/PF / nl capillary refill of toes Other: mckeon in place Labs/X-ray: Laboratory Tests: 05/03 0400 Chemistry Sodium (136 - 145 mmol/L) 139 Potassium (3.5 - 5.1 mmol/L) 4.8 Chloride (98 - 107 mmol/L) 105.0 Carbon Dioxide (21 - 32 mmol/L) 22.2 BUN (7 - 18 mg/dL) 25 H Creatinine (0.55 - 1.30 mg/dL) 1.09 Glomerular Filtr Rate (>60) 51.0 Glucose (70 - 110 mg/dL) 107 Calcium (8.2 - 10.1 mg/dL) 8.9 Hematology Hgb (12 - 16 g/dL) 11.0 L Hct (37 - 47 %) 34.2 L Luis Carlos Santiago M.D. at 0938 RPT #:[id number] END OF REPORT 2019-05-03 08:42:00-00:00 [facility] ([facility]) Clinical Note REPORT#:[id number] REPORT STATUS: Signed DATE:05/03/19 TIME: 0842 PATIENT: PASTORA AMADOR UNIT #: [id number] [facility] AGE: 59 SEX: F ATTEND: Radha Guerrero MD ADM AUTHOR: Radha Guerrero MD * ALL edits or amendments must be made on the [employer] document * Clinical Note Note: ORTHO PROGRESS NOTE S: doing well, pain well controlled. no numbness or tingling, no CP, SOB, N/V. Reports had significant pain in the R leg yester day but gradually improving. O: AFVSS PE: NAD, A+O x 3 RLE: SILT T, numbness in dorsum of foot +2 DP/PT Motor 4/5 PF RLE, 1/5 EHL/TA Dressing CDI Minimal edema of Leg with soft compartments A: Doing well s/p R TKR, some weakness in R leg P: WBAT, ROM work Pain control DVT proph - asa bid Proph Abx PT/OT Dispo: pending PT clearance, likely home tomorro w Radha Guerrero MD at 0843 RPT #:[id number] END OF REPORT 2019-05-02 17:25:00-00:00 [facility] ([facility]) Clinical Note REPORT#:[id number] REPORT STATUS: Signed DATE:05/02/19 TIME: 1725 PATIENT: PASTORA AMADOR UNIT #: [id number] ROOM/BED: [facility] : 56 AGE: 59 SEX: F ATTEND: Radha Guerrero MD ADM AUTHOR: Luis Carlos Gould MD * ALL edits or amendments must be made on the [employer] document * Clinical Note Note: [facility] Luis Carlos kearns MD (cell text [phone]) Internal Medicine Consult at request of : Dr Bev Guerrero Chief Complaint: right knee pain HPI: 59 yo F is now s/p Right Total Knee Arthrop lasty (TKA) by Dr. Guerrero. Ms. Amador relates years of progressive Right knee p ain (recently severe), worse with activity, and achy and stiff at times in qu ality. She has failed conservative management. Comorbidities: see below. PmHx: .Sleep apnea with CPAP, Hypertension, Hype rcholesterolemia, Gerd, Migraines ALLERGY: Allergies: Sulfa (Sulfonamide Antibiotics) (Coded, Severe, SEVERE RASHES, 04/19/19) Home Medications: Home Medications: GABAPENTIN (NEURONTIN) 1,800 MG PO BEDTIME GABAPENTIN (NEURONTIN) 600 MG PO QAM DULoxetine DR (CYMBALTA) 60 MG PO BEDTIME IRBESARTAN (AVAPRO) 300 MG PO DAILY TOPIRAMATE (TOPAMAX) 100 MG PO DAILY diphenhydrAMINE (BENADRYL) 25 MG PO BID PRN PRN ALLERGIES guaiFENesin/DEXTROMETHORPHAN (CORICIDIN HBP CHES T CONGEST COUGH 200/10 MG) 1 CAP PO Q4H PRN PRN ALLERGY NAPROXEN (NAPROSYN) 500 MG PO BID FOLIC ACID 0.4 MG PO DAILY CHOLECALCIFEROL (VITAMIN D3) (VITAMIN D3) 6,000 UNITS PO DAILY [EXCEDRIN MIGRAINE] 2 TAB PO DAILY PRN PRN MIGRA VOLODYMYR [VITAMIN B COMPLEX] 1 TAB PO DAILY TOPIRAMATE (TOPAMAX) 100 MG PO BEDTIME GABAPENTIN ER (GRALISE) 300 MG PO DAILY SIMVASTATIN (ZOCOR) 20 MG PO BEDTIME RANITIDINE (ZANTAC) 300 MG PO BEDTIME CYANOCOBALAMIN (VITAMIN B-12) 5,000 MCG SL DAILY MAGNESIUM CHLORIDE ER (SLOW-MAG) 128 MG PO DAILY ARGININE (L-ARGININE) 500 MG PO BID LUTEIN/ZEAXANTHIN (LUTEIN 15 MG) 50 MG PO DAILY BIOTIN 5,000 MCG PO DAILY amLODIPine (NORVASC) 5 MG PO BID ASPIRIN EC (ECOTRIN) 81 MG PO BID DOXYCYCLINE HYCLATE (VIBRA-TAB) 100 MG PO Q12H HYDROcodone/APAP (NORCO 10/325) 1 TAB PO Q6H PRN PRN PAIN SCALE 7-10, SECOND LINE METHOCARBAMOL (ROBAXIN) 500 MG PO TID PRN PRN MU SCLE SPASMS traMADol (ULTRAM) 50 MG PO Q4H PRN PRN PAIN SCAL E 4-6 SgHx: .C-sections x2, Partial hysterectomy, Bila teral CR, 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 Alcohol: none Drugs: none Lives: with spouse Vitals: Vital Signs: Date Time Temp Pulse Resp B/P B/P Pulse O2 O2 F low FiO2 Mean Ox Delivery Rate 05/02 1715 98 Nasal 3.691024 cannula 05/02 1532 98.1 90 18 91/58 69.0 96 Nasal 3.00 0000 cannula 05/02 1215 99 Nasal 3.059902 cannula 05/02 1208 Nasal 3.125724 cannula 05/02 1137 97.9 88 18 130/76 94.3 96 Nasal 3.00 0000 cannula 05/02 1100 81 19 132/69 99 Nasal 3.323619 cannula 05/02 1045 86 17 131/67 99 Nasal 3.530325 cannula 05/02 1032 76 16 124/72 98 Nasal 3.562253 cannula 05/02 1017 Nasal 3.604019 cannula 05/02 1015 87 12 137/84 97 Nasal 3.718537 cannula 05/02 1007 Simple 8.716010 mask 05/02 1000 82 12 129/71 98 Nasal 3.294117 cannula 05/02 0947 97.7 90 12 145/70 96 Simple 8.538029 mask 05/02 0728 66 24 128/67 100 Room air 05/02 0716 70 19 125/69 100 Simple 6.225426 mask 05/02 0555 97.7 76 16 135/83 99 Room air Gen: Alert, in mild to moderate discomfort, nl n utrition. Slightly slow, groggy with communication. EYE: Nl lids conjunctiva. ENT: Nl ears Nose, nl lips,. Neck: Supple, nl thyroid, No masses. CV: Regular Rate Rhythm, no heave or significant murmur. Edema- none Feet toes normal temperature. RESP: Clear to Auscultation, normal Respiratory effort. ABD: Soft, NonDistended,. LYM: No significant cervical Lymphadenopathy. MS: No Clubbing, cyanosis, Knee with bulky wrapp ing. NEURO: Nonfocal, grossly normal sensation of LE, +Ankle DF/PF . Preop Labs(04/19/19): CBC:. Hgb 13.1 Plt 296, CHEM: Na 143, K 3.5, Cr 0.82 (eGFR 70.9%), Ekg: Sinus bradycardia at 49 bpm (medium to high risk of complications or morbidi ty) (major surgery) (IV sedative, meds) Assessment Plan 1.) Anemia of Acute Blood Loss- .will recheck to [facility]. 2.) S/p Right TKA- .acute pain control. Anticoag ulation as per Dr. Guerrero. 3.) Hypertension- .follow BP and hold Rxs if SBP <120. 4.) Hyperlipidemia GERD Hx of Migaines BLAKE- .con tinue on Rx. CPAP Luis Carlos Santiago M.D. Thanks! at 1804 RPT #:[id number] END OF REPORT 2019-05-02 13:07:00-00:00 [facility] ([facility] DT Operative Note REPORT#:[id number] REPORT STATUS: Signed DATE:05/02/19 TIME: 1307 PATIENT: PASTORA AMADOR UNIT #: [id number] ROOM/BED: [address] : [birth year] AGE: 59 SEX: F ATTEND: Radha Guerrero MD ADM AUTHOR: Radha Guerrero MD * ALL edits or amendments must be made on the [employer]/computer document * Operative Report Operative Note Note: ORTHO OP NOTE Patient Name: Pastora Amador : 56 DOS: 05/02/19 Pre-op Diagnosis: Right Knee Osteoarthritis, mor bid Obesity Post-op Diagnosis: Same Procedure: Complex Right Total Knee Arthroplasty Surgeon: Radha Guerrero MD [employer] Supervisor: Radha CHAVEZ Anesthesia Type: Spinal/TIVA EBL: 50 ml Fluids: Per anesthesia record UOP: Per anesthesia record Implants: Depuy 5N Attune Femur, 5 FB Rev Tray, 38 anatomi c patella, 6mm PS Poly Specimens: None Drains: None Complications: None Condition: Stable, extubated, awake, taken to re covery INDICATIONS: This patient is a 59-year-old female who has failed conservative management of knee arthritis . I discussed the risks a nd benefits of total knee arthroplasty with the patient and they elected to proceed. I have discussed the risks and benefits with reg rufino to infection, bleeding complications, nerve damage, nonunion, failure o f hardware, DVT, PE and other general orthopedic issues. The patient understoo d this discussion and elected to proceed. TECHNIQUE: On day of my operation, the patient was met in t he pre-op area. I confirmed that the patient's right leg was the appropriate leg and marked it in [place] sam[place] with the patient. The patient was then taken back to the operating room. A sign in was performed to confirm we had the correct patient. A general anesthetic wa s then administered after the patient was placed supine on the OR bed. All ext remities were appropriately padded. The operative leg then had a thi gh tourniquet placed on it high on the thigh. The operative lower extremity was then pr epped and draped in a sterile manner with chloroprep and i oband. Timeout was performed prior to the procedure to confirm we had the correct patient, we were w orking on the correct leg and all equipment necessary was present. Preoperative antibiotic had been given and x-rays were visible. There were no concerns from any member of the operative team. Tranexamic acid was given. I then turned my attention to the patient's oper ative leg. An approx 6 inch incision was made over the midline of th e knee. I dissected down to the fascia and then medial and lateral flaps were raised. T he arthrotomy was marked for later reapproximation. A medial parapatellar art hrotomy was then created. The medial periosteal sleeve was raised off the prox imal tibia. The infrapatellar fat pad was removed. The synovium off the distal anterior aspect of the femur was removed. The anterior of the lateral meniscu s remanant was removed. The patella was then everted and held with t wo luis's and a sweetheart clamp. An oscillating saw was used to make a flat osteotom y of the patella. A bone protector plate was then placed over the patella . A saranya retractor was used to sublux th e patella lateral and the knee flexed. Mesha's line (WSL) was marked with a kayden lal. A drill was used to enter the femoral canal 2 mm medial to WSL and a nterior to the PCL insertion. The medullary contents were removed with suction. An IM vonnie was placed into the femur and a 5 degree valgus cut measured. The di stal cutting block was pinned into position. The distal osteotomy was performe d. The ACL and PCL were then released if present an d the tibia subluxed forward. An extramedullary guide was used to measure a fl at cut of the tibia. THe appropriate depth was determ ined and the proximal tibia cutting block pinned in place. A saw was used to perform the tibial oste otomy. All akhil pieces were removed. A spacer block was then used to confirm symmetric extension gaps and if necessary soft tissue released were performed . In this patient soft tissue released deep MCL. The femur was then reexposed and a sizer used to determine the appropriate size for this patient. The femoral rotation was set p erpendicular to WSL and a flexion block used to confirm appropriate flexio n gap creation. The 4-way cutting block was pinned into position. The ante rior, posterior, anterior champfer and posterior champfer cuts were perfor med. The akhil pieces were removed. No notching was present on the femur. A laminar barrel plater was placed lateral which allowed removal of the medial meni scus and posteromedial osteophytes. The laminar barrel plater was then place d medial and the ACL/PCL, lateral meniscus, and posterolateral osteophytes removed. A spacer block was used to confirm appropriate alignment and flexion gap balance with the extension gap. The PS cutting box was then placed on the femur and pinned into position. THe PS box was then cutout. The tibia was brought forward and sized. The tra y was pinned into position in the appropriate rotation. The drill and keel were used to fashion the bone for the tibial tray. A trial tray was placed. A tria l femur was placed. The knee was reduced with a trial akbar y. Stability was excellent with good balance of the flexion and extension gap. The patella was matt ed and sized. The drill holes were made and a trial placed. A lateral release was not needed. The patella tracked well. The trial components were removed. The akhil surfaces were irrigated with pulse lavage to remove fat and bl ood debris. Periarticular anesthetic was infiltrated into the soft tissues including the posterior capsule. Cement was mixed on the back table. It w as applied to the tibial, femoral, and patellar components. Cement was then applied to the tibia and the tibial component cemented into the appropriate position . The femur was then cemented in a similar technique. Excess cement was remove d with a [place]. A trial poly was placed and the knee placed into extension. T He patella was cemented into position with removal of excess cement. While the cement cured anesthestic was infiltrated into the superficial tissues. Once t he cement was dry the tourniquet was let down. Tourniquet time was 56 minutes. Hemostasis was achieved. The trial poly rem bronwyn and the knee check for loose or excess cement. The knee was copiously irri gatedThe poly on the tibia and locked into position. The need had excellent ROM and excellent stabil ity. We then turned our attention to closure. The arthrotomy was closed pr oximally with 1-Vicryl and then run with a barbed #2 Quill suture followed by closure of the deep fat with 0-Vicryl and closure of the subcutaneous fat with 2- 0 Monocryl in a buried interrupted fashion followed by closure of the skin with 3-0 Monocryl and krupa mabond. This was followed by heavy cotton Castro dressing and Woody band age. All needle and sponge counts were correct. The patient was then awoke from general anesthetic, placed on the transport bed, and taken back to recovery. I was present for all portions of the procedure. As I am not part of a teaching program no reside nt or fellow was available to assist with this surgery. Radha Patiño was employed as a assistant statistician to provide retraction of critical neurovascular structures and provide the appropriate exposure needed to perform this comp dexter procedure. Both my hands are necessary for this procedure so the help of the parts room assistant was invaluable. Her help is needed to hold m ultiple retractors simultaneously to protect crucial structures such as the medial collateral ligament, the extensor mechanism, the posterior tibial nerve and p opliteal artery, and the lateral collater ligaments. Complexity Case was off added complexit y due to patient s morbid obesity with a BMI of >40. We needed additional time for positioning, expos ure, handling of the soft tissues, management of limb, positioning of retractors and additional time for complex multilayer closure. This case re quired 25% more effort and time due to the patient's size. FOLLOWUP: The patient will be maintained in house. The Pat ient will be WBAT on the operative leg with immediate initiation of PT an d ROM work. The DVT prophylaxis will be aspirin BID. I will follow h er while The Patient is in- house. I spoke with the patient s family after t he procedure and answered all questions. The patient will receive 24 hours of prophylactic antibiotics as well. Radha Guerrero MD at 0845 RPT #:[id number] END OF REPORT 2019-04-19 14:47:00-00:00 [id number] [facility] [address] [place] [address] PATIENT NAME: PASTORA AMADOR ADMIT DATE: ACCOUNT NO: [id number] ROOM NO: AGE: 59 REPORT TYPE: ELECTROCARDIOGRAM SEX: F ADMITTING PHYSICIAN:Radha Guerrero MD ATTENDING PHYSICIAN:Radha Guerrero MD Order: [id number] Test Reason : PRE OPM CLEARANCE HTN Test Date/Time Stamp: ThuApr 19 2019 14:47:54 Blood Pressure : / mmHG Vent. Rate : 049 BPM Atrial Rate : 049 BPM P-R Int : 164 ms QRS Dur : 088 ms QT Int : 464 ms P-R-T Axes : 053 050 054 degree s QTc Int : 419 ms Marked sinus bradycardia Abnormal ECG No previous ECGs available Confirmed by TEJ TORRES MD ([id number]) on 04/21/2019 10:48:11 AM Referred By: Radha Guerrero Confirmed by:TEJ Beaulieu Electronically Signed by Tej Torres MD on 04/08 09/24 at 1048 PATIENT NAME: PASTORA AMADOR [id number]
[2023-01-10] MEDS ORDERED: HYDROCODONE/APAP 7.5/325 MG TAB ONE (04:06)
[2023-01-10] MEDS ORDERED: KETOROLAC 30 MG/ML INJ ONE (04:38)
--- NOTE | 2023-01-10 04:41 | EDPHYS ---
Physician Documentation [facility] Name: Pastora Amador Age: 62 yrs Sex: Female : 1960 Arrival Date: 01/10/2023 Time: 03:20 Bed 4 Private MD: Nina Jones C ED Physician Salvador Douglas HPI: 01/10 03:47 This 62 yrs old white Female presents to ER via Ambulatory with complaints of Fall lakhwinder Injury, Arm Injury. 03:47 Details of fall: The patient fell from an upright position, while walking. Onset: The lakhwinder symptoms/episode began/occurred just prior to arrival. Associated injuries: The patient sustained anterior aspect of left shoulder, left bicep, posterior aspect of left shoulder and left tricep, decreased range of motion. Severity of symptoms: At their worst the symptoms were mild, moderate, in the emergency department the symptoms are unchanged. The patient has experienced similar episodes in the past, several times. Historical: - PMHx: 03:41 Fibromyalgia; Gout; High Cholesterol; Hypertension; restless leg syndrome; rv 06:26 chronic back pain; rv - Immunization history:: Adult Immunizations up to date. - Social history:: Smoking status: Patient denies any tobacco usage or history of. - Immunization history: Last tetanus immunization: unknown. ROS: 03:49 Constitutional: Negative for fever, chills, and weight loss, Eyes: Negative for injury, lakhwinder pain, redness, and discharge, ENT: Negative for injury, pain, and discharge, Neck: Negative for injury, pain, and swelling, Cardiovascular: Negative for chest pain, palpitations, and edema, Respiratory: Negative for shortness of breath, cough, wheezing, and pleuritic chest pain, Abdomen/GI: Negative for abdominal pain, nausea, vomiting, diarrhea, and constipation, Back: Negative for injury and pain, : Negative for injury, bleeding, discharge, and swelling, Skin: Negative for injury, rash, and discoloration, Neuro: Negative for headache, weakness, numbness, tingling, and seizure, Psych: Negative for depression, anxiety, suicide ideation, homicidal ideation, and hallucinations, Allergy/Immunology: Negative for hives, rash, and allergies, Endocrine: Negative for neck swelling, polydipsia, polyuria, polyphagia, and marked weight changes, Hematologic/Lymphatic: Negative for swollen nodes, abnormal bleeding, and unusual bruising. 03:49 MS/extremity: Positive for decreased range of motion, pain, swelling, tenderness, of the anterior aspect of left shoulder, left bicep, posterior aspect of left shoulder and left tricep. Exam: 03:49 Constitutional: This is a well developed, well nourished patient who is awake, alert, lakhwinder and in no acute distress. Head/Face: Normocephalic, atraumatic. Eyes: Pupils equal round and reactive to light, extra-ocular motions intact. Lids and lashes normal. Conjunctiva and sclera are non-icteric and not injected. Cornea within normal limits. Periorbital areas with no swelling, redness, or edema. ENT: Nares patent. No nasal discharge, no septal abnormalities noted. Tympanic membranes are normal and external auditory canals are clear. Oropharynx with no redness, swelling, or masses, exudates, or evidence of obstruction, uvula midline. Mucous membranes moist. Neck: Trachea midline, no thyromegaly or masses palpated, and no cervical lymphadenopathy. Supple, full range of motion without nuchal rigidity, or vertebral point tenderness. No Meningismus. Chest/axilla: Normal chest wall appearance and motion. Nontender with no deformity. No lesions are appreciated. Cardiovascular: Regular rate and rhythm with a normal S1 and S2. No gallops, murmurs, or rubs. Normal PMI, no JVD. No pulse deficits. Respiratory: Lungs have equal breath sounds bilaterally, clear to auscultation and percussion. No rales, rhonchi or wheezes noted. No increased work of breathing, no retractions or nasal flaring. Abdomen/GI: Soft, non-tender, with normal bowel sounds. No distension or tympany. No guarding or rebound. No evidence of tenderness throughout. Back: No spinal tenderness. No costovertebral tenderness. Full range of motion. Female : Normal external genitalia. Skin: Warm, dry with normal turgor. Normal color with no rashes, no lesions, and no evidence of cellulitis. Neuro: Awake and alert, GCS 15, oriented to person, place, time, and situation. Cranial nerves II-XII grossly intact. Motor strength 5/5 in all extremities. Sensory grossly intact. Cerebellar exam normal. Normal gait. Psych: Awake, alert, with orientation to person, place and time. Behavior, mood, and affect are within normal limits. 03:49 Musculoskeletal/extremity: Extremities: grossly normal except: noted in the anterior aspect of left shoulder, left bicep, posterior aspect of left shoulder and left tricep: decreased ROM, pain, ROM: limited active range of motion due to pain, limited passive range of motion due to pain, Circulation is intact in all extremities. Compartment Syndrome exam of affected extremity: is normal. no numbness, no tingling, no sensation deficit, no palor, no weak pulses, severe pain, Joints: All joints are normal except limited range of motion, pain at rest, painful range of motion, swelling, tenderness. Vital Signs: 03:43 BP 123 / 70; Pulse 64; Resp 16; Temp 98.6; Pulse Ox 96% on R/A; Weight 79.38 kg; Height rv 5 ft. 0 in. ; 06:27 BP 108 / 63; Pulse 63; Resp 18; Temp 98; Pulse Ox 100% ; rv 03:43 Body Mass Index 34.18 (79.38 kg, 152.4 cm) rv Mechelle Coma Score: 03:43 Eye Response: spontaneous(4). Motor Response: obeys commands(6). Verbal Response: rv oriented(5). Total: 15. 06:27 Eye Response: spontaneous(4). Motor Response: obeys commands(6). Verbal Response: rv oriented(5). Total: 15. Trauma Score (Adult): 03:43 Eye Response: spontaneous(1); Verbal Response: oriented(1); Motor Response: obeys rv commands(2); Systolic BP: > 89 mm Hg(4); Respiratory Rate: 10 to 29 per min(4); Mechelle Score: 15; Trauma Score: 12 MDM: 03:29 Patient medically screened. lakhwinder 03:51 Differential diagnosis: Anterior dislocation with fracture, Anterior dislocation lakhwinder without fracture, Posterior dislocation with fracture, Posterior dislocation without fracture, humeral head fracture, glenoid fracture, DJD, tendonitis. Differential diagnosis: abrasion, contusion, fracture, multiple trauma, sprain, strain. Data reviewed: vital signs, nurses notes, radiologic studies, plain films. Consideration of Admission/Observation Escalation of care including admission/observation considered. I considered the following discharge prescriptions or medication management in the emergency department Medications were administered in the Emergency Department. See MAR. Independent interpretation of the following test(s) in the Emergency Department X-Ray: My interpretation is shoulder x ray. Test considered but Not performed: Labs: no labs. 04:40 Patient medically screened. [facility] 01/10 03:42 Order name: Humerus Left XRAY [facility] 01/10 03:42 Order name: Elbow Left 3 View XRAY [facility] 01/10 04:18 Order name: CT Head C Spine [facility] 01/10 04:18 Order name: CT Facial Bones W/O Con [facility] 01/10 03:42 Order name: Shoulder Immobilizer; Complete Time: 03:54 [facility] 01/10 03:42 Order name: Ice pack; Complete Time: 03:54 [facility] Administered Medications: 03:59 Drug: Hydrocodone-Acetaminophen PO (7.5 mg-325 mg) 1 tabs Route: PO; rv 06:28 Follow up: Response: No adverse reaction rv 04:31 Drug: Ketorolac IM 30 mg Route: IM; Site: right deltoid; rv 06:27 Follow up: Response: No adverse reaction rv Disposition Summary: 01/10/23 04:40 Discharge Ordered Location: Home lakhwinder Problem: new lakhwinder Symptoms: have improved lakhwinder Condition: Stable lakhwinder Diagnosis - 2-part displaced fracture of surgical neck of right humerus lakhwinder - Fall on same level, unspecified lakhwinder Followup: lakhwinder - With: - When: 2 - 3 days - Reason: Recheck today's complaints, Continuance of care, Re-evaluation by your physician Followup: lakhwinder - With: - When: 2 - 3 days - Reason: Recheck today's complaints, Continuance of care, Re-evaluation by your physician Discharge Instructions: - Discharge Summary Sheet lakhwinder - Fall Prevention in the Home, Adult lakhwinder - Humerus Fracture Treated With Immobilization lakhwinder - Shoulder Pain lakhwinder - Humerus Fracture Treated With Immobilization, [id number] lakhwinder - Shoulder Pain, [id number] lakhwinder - Fall Prevention in the Home, Adult, [id number] lakhwinder Forms: - Medication Reconciliation Form lakhwinder - Thank You Letter lakhwinder - Antibiotic Education lakhwinder - Prescription Opioid Use lakhwinder - Patient Portal Instructions lakhwinder Prescriptions: - acetaminophen-codeine 300-30 mg Oral tablet - take 2 tablet by ORAL route every 6 hours; 20 tablet; Refills: 0, Product lakhwinder Selection Permitted Signatures: Dispatcher [employer] EDSalvador Rodriguez MD MD cha Vicente, Ronaldo, RN RN rv Corrections: (The following items were deleted from the chart) 06:26 03:41 PMHx: chronic back pain; rv rv
--- NOTE | 2023-01-10 04:41 | ER ---
Nurse's Notes [facility] Name: Pastora Amador Age: 62 yrs Sex: Female : 1960 Arrival Date: 01/10/2023 Time: 03:20 Bed 4 Private MD: Nina Jones C Diagnosis: 2-part displaced fracture of surgical neck of right humerus;Fall on same level, unspecified Presentation: 01/10 03:35 Chief complaint: Patient states: FELL ON THE LEFT SIDE AT 2200 YESTERDAY, COMPLAINING rv OF LEFT SHOULDER PAIN AND LEFT ARM PAIN, LIMITED ROM ON THE LEFT ARM BECAUSE OF PAIN. UNKNOWN IF THERE IS LOC. OLD HEMATOMA ON THE RIGHT SIDE OF THE FACE FROM PREVIOUS FALL INJURY. DENIES NECK AND BACK PAIN AT THIS TIME. Care prior to arrival: None. Mechanism of Injury: Fall from standing position. Trauma event details: Injury occurred in the [facility], Injury occurred: at home. Injury occurred: January 09, 2023 Injury occurred at: 22:00. 03:35 Acuity: EDY 3 rv 03:35 Method Of Arrival: Ambulatory rv 03:46 Coronavirus screen: Vaccine status:. Coronavirus screen: At this time, the client does rv not indicate any symptoms associated with coronavirus-19. Ebola Screen: No symptoms or risks identified at this time. Initial Sepsis Screen: Does the patient meet any 2 criteria? No. Patient's initial sepsis screen is negative. Does the patient have a suspected source of infection? No. Patient's initial sepsis screen is negative. Risk Assessment: Do you want to hurt yourself or someone else? Patient reports no desire to harm self or others. Onset of symptoms was January 09, 2023. Triage Assessment: 03:44 General: Appears comfortable, Behavior is calm, cooperative. Pain: Complains of pain in rv left elbow and left shoulder. Neuro: Level of Consciousness is awake, alert, obeys commands, Oriented to person, place, time, situation. Cardiovascular: Capillary refill < 3 seconds. Respiratory: Airway is patent Respiratory effort is even, unlabored. Musculoskeletal: Range of motion: limited in left shoulder and left elbow Trauma Activation: Not Applicable Physician: ED Physician; Name: ; Notified At: ; Arrived At: Physician: General Surgeon; Name: ; Notified At: ; Arrived At: Physician: Radiology; Name: ; Notified At: ; Arrived At: Physician: Respiratory; Name: ; Notified At: ; Arrived At: Physician: Lab; Name: ; Notified At: ; Arrived At: Historical: - PMHx: 03:41 Fibromyalgia; Gout; High Cholesterol; Hypertension; restless leg syndrome; rv 06:26 chronic back pain; rv - Immunization history:: Adult Immunizations up to date. - Social history:: Smoking status: Patient denies any tobacco usage or history of. - Immunization history: Last tetanus immunization: unknown. Screenin:44 Abuse screen: Denies threats or abuse. Denies injuries from another. Tuberculosis rv screening: No symptoms or risk factors identified. 03:46 [facility] ED Fall Risk Assessment (Adult) History of falling in the last 3 months, rv including since admission Yes- fall prone (multiple falls) (3 pts) Confusion or Disorientation No (0 pts) Intoxicated or Sedated No (0 pts) Impaired Gait No (0 pts) Mobility Assist Device Used No (0 pt) Altered Elimination No (0 pt) Score/Fall Risk Level 3 or more points = High Risk Oriented to surroundings, Maintained a safe environment, Educated pt \T\ family on fall prevention, incl call for assistance when getting out of bed, Assessed \T\ reinforced patient's understanding of fall precautions, Provided non-skid footwear, Hourly rounding (assess needs \T\ fall precautionary measures) done, Used ambulatory aids as needed (educated on \T\ assisted with), Used gait belt as appropriate Implemented a Fall Risk Plan of Care, Apply high fall risk patient identification: yellow non skid footwear/ fall signage, Placed fall mat w/ non beveled edge next to bed, Activated bed/chair alarm, Remained w/in arm's length of patient and in sight while toileting, Offered frequent toileting (1:1 observation), Remained with patient while ambulating, Utilized family, sitter, or virtual reverse logistics analyst as indicated. Nutritional screening: No deficits noted. Primary Survey: 03:43 NO uncontrolled hemorrhage observed. Breathing/Chest: Spontaneous respiratory effort, rv equal unlabored respirations, breath sounds clear bilaterally, regular pattern, symmetrical chest rise and fall. Circulation: No external hemorrhage present. Regular and strong central pulse, skin warm/dry/normal color. Disability Pupils are equal, round, reactive to light and accommodation. Client is alert. Exposure/Environment: A warming method has been applied: A warm blanket has been provided to the patient. 03:46 Reassessment Breathing:. rv Secondary Survey: 03:43 HEENT: No deficits noted. Gastrointestinal: No deficits noted. : No deficits noted. rv Musculoskeletal: Range of motion: limited in left shoulder. Assessment: 03:42 General: Appears comfortable, Behavior is calm, cooperative. Pain: Complains of pain in rv LEFT ARM AND SHOULDER. Neuro: Level of Consciousness is awake, alert, obeys commands, Oriented to person, place, time, situation. Cardiovascular: Capillary refill < 3 seconds. Respiratory: Airway is patent Respiratory effort is even, unlabored. GI: Abdomen is flat. : No signs and/or symptoms were reported regarding the genitourinary system. Musculoskeletal: Range of motion: limited in left shoulder and left elbow Swelling absent. Vital Signs: 03:43 BP 123 / 70; Pulse 64; Resp 16; Temp 98.6; Pulse Ox 96% on R/A; Weight 79.38 kg; Height rv 5 ft. 0 in. ; 06:27 BP 108 / 63; Pulse 63; Resp 18; Temp 98; Pulse Ox 100% ; rv 03:43 Body Mass Index 34.18 (79.38 kg, 152.4 cm) rv Mechelle Coma Score: 03:43 Eye Response: spontaneous(4). Motor Response: obeys commands(6). Verbal Response: rv oriented(5). Total: 15. 06:27 Eye Response: spontaneous(4). Motor Response: obeys commands(6). Verbal Response: rv oriented(5). Total: 15. Trauma Score (Adult): 03:43 Eye Response: spontaneous(1); Verbal Response: oriented(1); Motor Response: obeys rv commands(2); Systolic BP: > 89 mm Hg(4); Respiratory Rate: 10 to 29 per min(4); [place] Score: 15; Trauma Score: 12 ED Course: 03:21 Patient arrived in ED. am2 03:22 Nina Jones MD is Private Physician. am2 03:28 Layton Alvarado RN is Primary Nurse. rv 03:29 Salvador Douglas MD is Attending Physician. lakhwinder 03:37 Triage completed. rv 03:45 Arm band placed on right wrist. rv 03:45 Patient has correct armband on for positive identification. Placed in gown. Bed in low rv position. Call light in reach. Adult w/ patient. Client placed on continuous cardiac and pulse oximetry monitoring. NIBP monitoring applied. 03:46 No provider procedures requiring assistance completed. rv 03:47 Patient maintains SpO2 saturation greater than 95% on room air. rv 03:47 Thermoregulation: warm blanket given to patient. rv 04:18 Humerus Left XRAY In Process Unspecified. EDMS 04:18 Elbow Left 3 View XRAY In Process Unspecified. EDMS 04:40 Nina Jones MD is Referral Physician. lakhwinder 04:40 Shahbaz Shipley MD is Referral Physician. lakhwinder 05:00 CT Head C Spine In Process Unspecified. EDMS 05:00 CT Facial Bones W/O Con In Process Unspecified. EDMS 06:26 Provided Education on: FRACTURE. rv 06:26 Patient did not have IV access during this emergency room visit. rv Administered Medications: 03:59 Drug: Hydrocodone-Acetaminophen PO (7.5 mg-325 mg) 1 tabs Route: PO; rv 06:28 Follow up: Response: No adverse reaction rv 04:31 Drug: Ketorolac IM 30 mg Route: IM; Site: right deltoid; rv 06:27 Follow up: Response: No adverse reaction rv Medication: 03:47 VIS not applicable for this client. rv Output: 06:27 Urine: 0ml; Total: 0ml. rv Outcome: 04:40 Discharge ordered by . lakhwinder 06:25 Discharged to home via wheelchair, with family. rv 06:25 Condition: good 06:25 Discharge instructions given to patient, family, Instructed on discharge instructions, follow up and referral plans. medication usage, SLING, FRACTURE Demonstrated understanding of instructions, follow-up care, medications, Prescriptions given X 1. 06:26 Patient's length of stay in the Emergency Department was greater than 2 hours. rv IMAGINGPatient's length of stay extended due to 06:28 Patient left the ED. rv Signatures: Dispatcher [employer] Salvador Apodaca MD MD cha Moreno, Amanda am2 Layton Alvarado RN RN rv Corrections: (The following items were deleted from the chart) 06:26 03:41 PMHx: chronic back pain; rv rv
[2023-01-10 06:33] VITALS: BP 108/63; TEMP 98; O2SAT 100
--- NOTE | 2023-01-10 21:54 | RAD REPORT ---
EXAM DESCRIPTION: CT Maxillofacial COMPARISON: None. CLINICAL HISTORY: HS MAIN Pain;Trauma TECHNIQUE: High resolution axial CT images are obtained through the maxillofacial bones without intr avenous contrast followed by multiplanar reformats. Automated exposure control was utilized on this e xamination as a dose lowering technique. FINDINGS: Maxillofacial bones and mandible: No evidence for fracture or destructive osseous process. Orbital structures: Unremarkable. Paranasal sinuses: Clear. Soft tissues: A 2 cm [place]'s duct calculus is noted on the right. Visualized intracranial structures: The visualized structures of the skull base are normal. Visualize d intracranial structures are normal. IMPRESSION: No acute maxillofacial findings. Electronically signed by: Freeman Mace MD 01/10/2023 6:28 AM CDT Due to temporary technical issues with the PACS/Fluency reporting system, reports are being signed by the in house radiologists without review as a courtesy to insure prompt reporting. The interpreting radiologist is fully responsible for the content of the report.
--- NOTE | 2023-01-10 21:57 | RAD REPORT ---
EXAM DESCRIPTION: CT Head and Cervical Spine Without Intravenous Contrast CLINICAL HISTORY: The patient is 62 years old and is Female; [facility] MAIN TECHNIQUE: Axial computed tomography images of the head/brain and cervical spine without intravenous contrast. Sagittal and coronal reformatted images were created and reviewed. This CT exam was pe rformed using one or more of the following dose reduction techniques: automated exposure control, a djustment of the mA and/or kV according to patient size, and/or use of iterative reconstruction techn ique. COMPARISON: 11/02/2018 CT head without contrast FINDINGS: BRAIN: Slight progression of white matter changes in the left frontal and parietal deep white matter, suspicious for demyelinating etiology versus microangiopathic change. No extra-axial fluid collection. No intracranial hemorrhage. No focal bernardo-white matter differentiation abnormality. MIDLINE SHIFT: No midline shift. VENTRICLES: Unremarkable. No ventriculomegaly. SKULL: See below. SINUSES: Unremarkable as visualized. No acute sinusitis. MASTOID AIR CELLS: Unremarkable as visualized. No mastoid effusion. VERTEBRAE: Multilevel cervical spondylosis with focal degenerative disc disease greatest at C4-5, C 5-6, and C6-7 levels. No acute disc space abnormality. Straightening of the cervical spine as the patient is positioned. Laminectomy changes redemonstrated at C3-C5 levels. No acute fracture or significant subluxation. DISCS/SPINAL CANAL/NEURAL FORAMINA: No transtentorial herniation. OTHER BONES/JOINTS: No fracture of the calvarium or visualized facial bones. SOFT TISSUES: 2.4 x 0.8 cm ovoid dense calcification within the right hypoglossal tissues, of uncer tain etiology but favoring a benign process. No salivary gland ductal dilatation to suggest an obstru ctive sialolith. OTHER FINDINGS: Cervicocranial orientation is within normal limits. IMPRESSION: 1. No acute intracranial or cervical spine abnormality. 2. Slight progression of white matter changes in the left frontal and parietal deep white matter, s uspicious for demyelinating etiology versus microangiopathic change. Clinical correlation recommended . Consider further characterization by repeat brain MRI. Electronically signed by: Daniel Khoury MD 01/10/2023 6:01 AM CDT Due to temporary technical issues with the PACS/Fluency reporting system, reports are being signed by the in house radiologists without review as a courtesy to insure prompt reporting. The interpreting radiologist is fully responsible for the content of the report.
--- NOTE | 2023-01-10 21:59 | RAD REPORT ---
EXAM DESCRIPTION: Elbow Left 3 View CLINICAL HISTORY: PAIN COMPARISON: None. FINDINGS: 3 views of the left elbow. No acute fracture or dislocation. Osteopenia. IMPRESSION: 1. No acute fracture or dislocation. Electronically signed by: Philippe Mejia 01/10/2023 5:13 AM CDT Due to temporary technical issues with the PACS/Fluency reporting system, reports are being signed by the in house radiologists without review as a courtesy to insure prompt reporting. The interpreting radiologist is fully responsible for the content of the report.
--- NOTE | 2023-01-10 22:02 | RAD REPORT ---
EXAM DESCRIPTION: Humerus Left CLINICAL HISTORY: PAIN COMPARISON: None. FINDINGS: 2 views of the left humeral. Acute surgical neck fracture of the left humerus. Osteopenia. No change of the acromioclavicular joint. IMPRESSION: Acute surgical neck fracture of the proximal left humerus. Electronically signed by: Philippe Mejia 01/10/2023 5:14 AM CDT Due to temporary technical issues with the PACS/Fluency reporting system, reports are being signed by the in house radiologists without review as a courtesy to insure prompt reporting. The interpreting radiologist is fully responsible for the content of the report.
== END 2023-01-10 06:28 | disposition home or self-care (01) ==
LOC: ER 03:20
DX: S42.222A 2-part displaced fracture of surgical neck of left humerus, initial encounter for closed fracture (principal); W18.30XA Fall on same level, unspecified, initial encounter
CPT/HCPCS: 70450; 70486; 72125; 76377; 96372; 99285

== ENCOUNTER 2024-06-22 13:42 | Emergency (ER) | payer OTHER ==
[2024-06-22] MEDS ORDERED: NA CHLORIDE 0.9% 500 ML ONE (14:20)
[2024-06-22 14:25] LABS: Absolute Lymphocytes (CBC) 0.9 K/uL (0.7-4.9); Absolute Monocytes 0.3 K/uL (0.1-1.3); Absolute Neutrophil 4.4 K/uL (1.8-8.0); Basophils % 0.8 % (0-1.3); Eosinophils % 0.8 % (0-4.4); Hematocrit 36.9 % (36.0-45.0); Hemoglobin 12.4 g/dL (12.0-15.0); Lymphocytes % 15.7 % (15.3-44.8); MCH 31.9 pg (27.0-35.0); MCHC 33.7 g/dL (32.0-36.0); MCV 94.8 fL (80-100); Monocytes % 5.1 % (3.3-12.3); Neutrophils % 77.6 % (41.7-73.7); Platelets 479 thou/uL (152-406); RBC Red Blood Cell Count 3.89 M/uL (3.86-4.86); Red Cell Distribution Width 12.4 % (12.1-15.2)
[2024-06-22 14:36] LABS: PT Prothrombin Time 12.5 SECONDS (9.4-12.5); Protime INR 1.19
[2024-06-22 14:48] LABS: Albumin 3.6 g/dL (3.4-5.0); Albumin/Globulin Ratio 1.2 (1.1-1.8); Anion Gap 15.7 mEq/L (5.0-15.0); Bilirubin Direct 0.3 mg/dL (0-0.2); Bilirubin Indirect, Calculated 0.3 mg/dL (0.2-0.8); Bilirubin Total 0.6 mg/dL (0.2-1.0); Globulin 3.1 g/dL (2.3-3.5); Potassium 2.7 mEq/L (3.5-5.1); Protein, Total 6.7 g/dL (6.4-8.2); Troponin High Sensitivity 6.6 pg/mL (<58.9)
--- NOTE | 2024-06-22 17:07 | RAD REPORT ---
EXAM: Chest Single View HISTORY: weakness COMPARISON: 12/13/2021 FINDINGS: LUNGS/PLEURA: The lungs are clear. No pleural effusions or pneumothorax. No pulmonary edema. MEDIASTINUM: The mediastinal silhouette is within normal limits. CARDIAC: The cardiac silhouette is within normal limits. UPPER ABDOMEN: No significant abnormality. BONES: No acute abnormality. LINES/TUBES/OTHER: N/A IMPRESSION: No evidence of acute cardiopulmonary disease.
--- NOTE | 2024-06-22 17:08 | RAD REPORT ---
EXAMINATION: CT HEAD WITHOUT CONTRAST CT CERVICAL SPINE WITHOUT CONTRAST CLINICAL INDICATION: Female, 64 years old. fall TECHNIQUE: Axial CT images from the skull base to the vertex without intravenous contrast. Axial CT i mages through the cervical spine were obtained without intravenous contrast. Sagittal and coronal reformatted images were created from the data set. Coronal and sagittal reformatted images were creat ed from the data set. One or more of the following dose reduction techniques were used: Automated exposure control, adjustment of the mA and/or kV according to patient size, and/or iterative reconstr uction. Unless otherwise specified, incidental findings do not require dedicated imaging follow-up. [id number]. COMPARISON: 01/10/2023 FINDINGS: Head: INTRACRANIAL: No acute intracranial hemorrhage. No hydrocephalus. No mass effect or midline shift. Pa tchy areas of white matter hypoattenuation at the left frontal lobe and left garcia radiata region is similar to prior.This may reflect a remote insult including asymmetric chronic small vessel ischem ic changes VASCULATURE: No visualized abnormalities in the arteries or dural venous sinuses. SCALP/SKULL: No significant soft tissue or osseous abnormalities. SINUSES: The visualized paranasal sinuses and mastoid air cells are predominantly clear. Cervical spine: ALIGNMENT: 3 mm anterolisthesis of C3 on C4. BONE: Vertebral body heights are maintained. No aggressive osseous lesions. DEGENERATIVE CHANGES: Multilevel cervical spondylosis with varying degrees of neural foraminal narrow ing. No high-grade central spinal stenosis. SOFT TISSUE: No significant abnormalities in the soft tissue of the neck. The visualized lung apices are clear. IMPRESSION: No acute intracranial abnormality. No acute fracture or traumatic malalignment of the cervical spine.
--- NOTE | 2024-06-22 17:08 | RAD REPORT ---
EXAM: CT CHEST, ABDOMEN AND PELVIS WITHOUT CONTRAST CLINICAL INDICATION: Female, 64 years fall TECHNIQUE: CT chest, abdomen and pelvis was performed, with IV contrast, as per department protocol. Axial, sagittal and coronal reconstructions were obtained. One or more of the following dose reduction techniques were used: Automated exposure control, adjustment of the mA and/or kV according to the patient size, and/or iterative reconstruction. Unless otherwise specified, incidental findings do not require dedicated imaging follow-up. [id number]. COMPARISON: No prior exam. FINDINGS: Chest: LOWER NECK: Visualized thyroid gland and soft tissues are normal. LUNGS AND AIRWAYS: Airways are clear. No evidence of airspace or interstitial process.Scattered calci fied pulmonary nodules. PLEURA: No pleural effusion. No pneumothorax. Hemidiaphragms are normally positioned. MEDIASTINUM AND LYMPH NODES: No mediastinal mass or fluid collection. Normal size mediastinal, hilar, and axillary lymph nodes. THORACIC AORTA: No thoracic aortic aneurysm. Aberrant right subclavian artery. PULMONARY ARTERIES: Caliber is within normal limits. HEART: Normal heart size. Coronary arterial calcifications are present.No significant pericardial eff usion. Mitral annular calcifications. 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 Thickening at the gastroesophageal junction and proximal stomach. This may be secondary to the recent postoperative state. LIVER: Hepatic steatosis. Probable fatty infiltration at the medial posterior aspect of segment 3 of the liver. GALLBLADDER/BILE DUCTS: Distended but no pericholecystic fluid but no inflammatory changes.? PANCREAS: Atrophy, but otherwise unremarkable. SPLEEN: Unremarkable. ADRENALS: No adrenal masses. KIDNEYS AND URETERS: No hydronephrosis.No suspicious renal mass. ABDOMINAL AORTA AND OTHER VESSELS: Normal caliber aorta and IVC. PERITONEUM: Mild pelvic free fluid. This is abnormal but nonspecific. LYMPH NODES: No pathologic lymphadenopathy. ABDOMINAL WALL: Body wall edema. SMALL BOWEL/COLON: Small bowel has normal course and caliber. No colonic wall thickening or pericolon ic inflammatory changes.Susan-en-Y gastric bypass. Surgical changes in the anterior abdominal wall. URINARY BLADDER: Underdistended but grossly unremarkable. REPRODUCTIVE ORGANS: Uterus surgically absent. No adnexal abnormality. MUSCULOSKELETAL: Fusion hardware in the spine. Grade 2 anterolisthesis of L4 and L5. Interbody cages are present at L2-3, L3-4, and L4-5. ADDITIONAL FINDINGS: None. IMPRESSION: 1. Reported recent Susan-en-Y gastric bypass revision. There is some edema around the gastroesophageal junction and proximal stomach may be postoperative. No bowel obstruction, free air, abscess identified. 2. No acute findings in the chest.
[2024-06-22 19:06] LABS: Sqamous Epithelial <5 /HPF (None Seen); Urine Bacteria None Seen /HPF (<20); Urine Culture Reflex Order NOT NEEDED; Urine Micro Reflex YN NO BILL MICROSCOPIC; Urine RBC <5 /HPF (None Seen); Urine WBC <5 /HPF (<5)
[2024-06-22 19:08] LABS: Urine Clarity Clear (Clear); Urine Color Yellow (Yellow)
[2024-06-22 19:09] LABS: Urine Bilirubin Negative (Negative); Urine Blood Negative (Negative); Urine Glucose Negative (Negative); Urine Ketones Negative (Negative); Urine Nitrite Negative (Negative); Urine Protein Negative (Negative); Urine Urobilinogen Normal (Normal)
[2024-06-22] MEDS ORDERED: NA CHLORIDE 0.9% 1,000 ML ONE (19:32)
[2024-06-22] MEDS ORDERED: KCL 20 MEQ/100 mL IVPB 100 ML IV ONE (19:32)
--- NOTE | 2024-06-22 19:37 | ER ---
Nurse's Notes [facility] Name: Pastora Amador Age: 64 yrs Sex: Female : 1960 Arrival Date: 06/22/2024 Time: 13:42 Bed 5 Private MD: Diagnosis: Hypo-osmolality and hyponatremia;Hypokalemia;Abnormal findings on diagnostic imaging of liver and biliary tract;Abnormal results of liver function studies Presentation: 06/22 13:49 Chief complaint: Patient states: "I had a gastric bypass revision surgery May and I've been on a full liquid diet since then but I don't eat much". Pt report generalized weakness, reports fell yesterday and today getting out of bed, pt's states "I checked her blood pressure after she fell today and it was 74/50". 13:49 Onset of symptoms was June 22, 2024. aa5 13:49 Acuity: EDY 2 aa5 14:01 Coronavirus screen: At this time, the client does not indicate any symptoms associated aa5 with coronavirus-19. Ebola Screen: Patient denies travel to an Ebola-affected area in the 21 days before illness onset. Initial Sepsis Screen: Does the patient meet any 2 criteria? No. Patient's initial sepsis screen is negative. Does the patient have a suspected source of infection? No. Patient's initial sepsis screen is negative. Risk Assessment: Do you want to hurt yourself or someone else? Patient reports no desire to harm self or others. 14:01 Method Of Arrival: Wheelchair aa5 Historical: - Allergies: 14:01 Sulfa (Sulfonamide Antibiotics); aa5 - PMHx: 14:01 chronic back pain; Gout; High Cholesterol; Hypertension; restless leg syndrome; aa5 Osteoarthritis; Fibromyalgia; Migraine; Osteoporosis; - PSHx: 14:01 Gastric bypass 2021; Back Sx 2022; Gastric bypass revision ; hysterectomy; aa5 section; neck sx 2011; right knee meniscus sx; right knee total replacement; Left shoulder sx; - Immunization history:: Adult Immunizations unknown. - Infectious Disease History:: Denies. - Social history:: Smoking status: unknown. Screenin:27 [facility] ED Fall Risk Assessment (Adult) History of falling in the last 3 months, ph including since admission Yes- physiologic fall (2 pts) Confusion or Disorientation No (0 pts) Intoxicated or Sedated No (0 pts) Impaired Gait No (0 pts) Mobility Assist Device Used No (0 pt) Altered Elimination No (0 pt) Score/Fall Risk Level 0 - 2 = Low Risk Oriented to surroundings, Maintained a safe environment, Hourly rounding (assess needs \\T\\ fall precautionary measures) done. Abuse screen: Denies threats or abuse. Denies injuries from another. Nutritional screening: No deficits noted. Tuberculosis screening: No symptoms or risk factors identified. Assessment: 14:33 General: Appears uncomfortable, Behavior is calm, cooperative, appropriate for age. ll1 Pain: Denies pain. Neuro: Reports weakness. GI: Reports no appetite for food or fluids. EENT: Reports dry mouth. 15:30 Reassessment: Patient appears in no apparent distress at this time. Patient and/or jb4 family updated on plan of care and expected duration. Pain level reassessed. Patient is alert, oriented x 3, equal unlabored respirations, skin warm/dry/pink. 16:30 Reassessment: Patient appears in no apparent distress at this time. Patient and/or jb4 family updated on plan of care and expected duration. Pain level reassessed. Patient is alert, oriented x 3, equal unlabored respirations, skin warm/dry/pink. 17:30 Reassessment: Patient appears in no apparent distress at this time. Patient and/or jb4 family updated on plan of care and expected duration. Pain level reassessed. Patient is alert, oriented x 3, equal unlabored respirations, skin warm/dry/pink. 19:40 Reassessment: Patient appears in no apparent distress at this time. Patient and/or bm8 family updated on plan of care and expected duration. Pain level reassessed. Patient is alert, oriented x 3, equal unlabored respirations, skin warm/dry/pink. Patient states feeling better. Pain: Complains of pain in buttocks Pain currently is 3 out of 10 on a pain scale. Quality of pain is described as aching, pressure. Neuro: Level of Consciousness is awake, alert, obeys commands, Oriented to person, place, time, situation, Appropriate for age. Cardiovascular: Denies chest pain, Heart tones S1 S2 present Capillary refill < 3 seconds in bilateral fingers Patient's skin is warm and dry. Respiratory: Airway is patent Trachea midline Respiratory effort is even, unlabored, Respiratory pattern is regular, symmetrical, Breath sounds are clear bilaterally. GI: Patient currently denies abdominal pain, nausea, vomiting. : No signs and/or symptoms were reported regarding the genitourinary system. EENT: No signs and/or symptoms were reported regarding the EENT system. Derm: No signs and/or symptoms reported regarding the dermatologic system. Musculoskeletal: No signs and/or symptoms reported regarding the musculoskeletal system. 21:30 Reassessment: Patient appears in no apparent distress at this time. No changes from bm8 previously documented assessment. Patient and/or family updated on plan of care and expected duration. Pain level reassessed. Patient is alert, oriented x 3, equal unlabored respirations, skin warm/dry/pink. Patient states feeling better. 22:25 Reassessment: Patient appears in no apparent distress at this time. Patient and/or bm8 family updated on plan of care and expected duration. Pain level reassessed. Patient is alert, oriented x 3, equal unlabored respirations, skin warm/dry/pink. GI: Reports upper abdominal pain. Vital Signs: 14:01 BP 113 / 70; Pulse 52; Resp 16 S; Temp 97(A); Pulse Ox 100% on R/A; aa5 14:31 BP 104 / 67; Pulse 96; Resp 18; Pulse Ox 100% on R/A; ll1 14:46 BP 103 / 68; Pulse 46; Resp 17; Pulse Ox 100% ; ll1 15:40 BP 105 / 60; Pulse 48; Resp 16; Pulse Ox 100% on R/A; jb4 16:40 BP 109 / 64; Pulse 49; Resp 16; Pulse Ox 100% on R/A; jb4 17:40 BP 108 / 71; Pulse 49; Resp 16; Pulse Ox 100% on R/A; jb4 19:40 BP 126 / 62; Pulse 49; Resp 12; Temp 98.1; Pulse Ox 100% ; Pain 3/10; bm8 21:30 BP 94 / 59; Pulse 50; Resp 16; Temp 98.1; Pulse Ox 100% ; Pain 2/10; bm8 22:25 BP 123 / 64; Pulse 50; Resp 12; Temp 98.1; Pulse Ox 100% ; Pain 6/10; bm8 23:15 BP 112 / 66; Pulse 49; Resp 14; Temp 98.2; Pulse Ox 100% ; Pain 0/10; bm8 19:40 Pain Scale: Adult bm8 21:30 Pain Scale: Adult bm8 22:25 Pain Scale: Adult bm8 23:15 Pain Scale: Adult bm8 Mechelle Coma Score: 19:40 Eye Response: spontaneous(4). Motor Response: obeys commands(6). Verbal Response: bm8 oriented(5). Total: 15. 21:30 Eye Response: spontaneous(4). Motor Response: obeys commands(6). Verbal Response: bm8 oriented(5). Total: 15. 23:15 Eye Response: spontaneous(4). Motor Response: obeys commands(6). Verbal Response: bm8 oriented(5). Total: 15. ED Course: 13:44 Patient arrived in ED. im 13:47 Salvador Luna PA is PHCP. cp 13:47 Salvador Douglas MD is Attending Physician. cp 13:49 Arm band placed on Patient placed in an exam room, on a stretcher. aa5 14:01 Triage completed. aa5 14:08 Elvin Machado, RN is Primary Nurse. ll1 14:10 Initial lab(s) drawn, by me, sent to lab. Inserted saline lock: 22 gauge in left ll1 antecubital area, using aseptic technique. Blood collected. Flushed with 10 mL NS. 14:27 XRAY Chest (1 view) In Process Unspecified. EDMS 14:28 EKG done. ll1 15:08 Chest Abdomen Pelvis W Cont In Process Unspecified. EDMS 15:09 Head C Spine Mpr Wo Con In Process Unspecified. EDMS 16:27 Patient has correct armband on for positive identification. Bed in low position. Call ph light in reach. Side rails up X 1. Pulse ox on. NIBP on. Door closed. Noise minimized. Warm blanket given. 19:40 Provided Education on: need for transfer. bm8 19:40 No provider procedures requiring assistance completed. Patient maintains SpO2 bm8 saturation greater than 95% on room air. 19:52 Initiated transfer with [facility]. rv1 19:56 US Abdomen Limited In Process Unspecified. EDMS 20:25 [facility] declined due to capacity. rv1 20:42 Attending Physician role handed off by Salvador Douglas MD sp4 20:42 Delio Vernon MD is Attending Physician. sp4 20:[address] [facility] for [facility] with Salvador CHAVEZ. rv1 21:[address] Tripp with Salvador CHAVEZ. rv1 21:11 [facility] declined due to Capacity. Provider notified. rv1 21:19 Attempted to initiate with [facility], No answer. Will call back. rv1 21:24 Attempted to initiate with [facility], no answer. Will call back. rv1 21:27 Attempted to initiate with [facility], no answer. Will call back. rv1 21:31 [address] to initiate with [facility], no answer. Provider notified. rv1 21:36 Initiated transfer with Donya at [facility]. rv1 21:42 [facility] declined due to capacity. rv1 21:46 [address] to initiate with [facility], no answer. Provider notified. rv1 21:47 Initiated transfer with Odlays at [facility]. rv1 22:[address] Doc [address] doc with Dr. Acevedo at [facility]. rv1 22:[address] Acevedo to [facility] 11C bed 1145. Report #[id number]. rv1 23:52 Patient transferred, IV remains in place. bm8 Administered Medications: 14:31 Drug: NS 0.9% IV 500 ml IV at bolus once; to be given as a bolus over 30 minutes Route: ll1 IV; Rate: bolus; Site: left antecubital; 19:42 Follow up: Response: No adverse reaction; IV Status: Completed infusion; IV Intake: bm8 500ml 19:40 Drug: Potassium Chloride IV 20 mEq IV at calculated rate once; administer over 1-2 bm8 hours Route: IV; Rate: calculated rate; Site: left antecubital; 21:30 Follow up: Response: No adverse reaction; IV Status: Completed infusion; IV Intake: bm8 100ml 19:40 Drug: NS 0.9% IV 1000 ml IV at 75 ml/hr Per protocol Route: IV; Rate: 75 ml/hr; Site: bm8 left antecubital; 23:50 Follow up: Response: No adverse reaction; IV Status: Completed infusion; IV Intake: bm8 1000ml 22:27 Drug: fentaNYL (PF) IVP 25 mcg IVP once Route: IVP; Site: left antecubital; bm8 23:50 Follow up: Response: No adverse reaction bm8 Medication: 16:27 VIS not applicable for this client. ph Intake: 19:42 IV: 500ml; Total: 500ml. bm8 21:30 IV: 100ml; Total: 600ml. bm8 23:50 IV: 1000ml; Total: 1600ml. bm8 Outcome: 19:37 ER care complete, transfer ordered by . cp 23:52 Transferred by ground EMS to [facility], Transfer form bm8 completed. X-rays sent w/ patient. 23:52 Condition: stable 23:52 Discharge instructions given to patient, family, Instructed on follow up and referral plans. the need for transfer, Demonstrated understanding of instructions, follow-up care, 23:53 Patient left the ED. bm8 Signatures: Dispatcher [employer] EDMS Katy Campbell RN RN aa5 Pat Ding RN RN Salvador Martínez, KATHY PA Marcelino Mosqueda, KASSY ELENA jb4 Elvin Machado RN RN ll1 Donya Mario rv1 Delio Vernon MD MD sp4 Gaby Brar Brad, RN RN bm8 Corrections: (The following items were deleted from the chart) 14:05 14:01 PMHx: Fibromyalgia; aa5 aa5 14:48 14:46 BP 94 / 47; Pulse 93bpm; Resp 17bpm; Pulse Ox 100%; ll1 ll1 22:15 21:42 Attempted to initiate with [facility], no answer. Provider notified. rv1 rv1 06/23 00:29 01/15 20:25 [facility] declined due to capacity. rv1 rv1
--- NOTE | 2024-06-22 19:37 | EDPHYS ---
Physician Documentation [facility] Name: Pastora Amador Age: 64 yrs Sex: Female : 1960 Arrival Date: 06/22/2024 Time: 13:42 Bed 5 Private MD: ED Physician Delio Vernon HPI: 06/22 14:05 This 64 yrs old Female presents to ER via Wheelchair with complaints of low blood cp pressure, General Weakness, Fall Injury - Multiple. 14:05 The patient's problem is reported as weakness, that is generalized. cp 14:05 Onset: The symptoms/episode began/occurred gradually. cp 14:05 Associated signs and symptoms: Pertinent positives: nausea, Pertinent negatives: chest cp pain, syncope. Patient's baseline: Neuro: alert and fully oriented, Motor: no deficits, Ambulation: walks without assistance, Speech: normal. Patient reports having revision of gastric bypass performed by surgeon at [facility] in [facility] on 06-06-2024 with no complications. Has been consuming liquid diet since surgery. Historical: - Allergies: 14:01 Sulfa (Sulfonamide Antibiotics); aa5 - PMHx: 14:01 chronic back pain; Gout; High Cholesterol; Hypertension; restless leg syndrome; aa5 Osteoarthritis; Fibromyalgia; Migraine; Osteoporosis; - PSHx: 14:01 Gastric bypass 2021; Back Sx 2022; Gastric bypass revision ; hysterectomy; aa5 section; neck sx 2011; right knee meniscus sx; right knee total replacement; Left shoulder sx; - Immunization history:: Adult Immunizations unknown. - Infectious Disease History:: Denies. - Social history:: Smoking status: unknown. ROS: 14:08 Constitutional: Negative for body aches, chills, fever, cp 14:08 Cardiovascular: Negative for chest pain, edema, palpitations, cp 14:08 Respiratory: Negative for cough, shortness of breath, wheezing, 14:08 Eyes: Negative for injury, pain, redness, and discharge, cp 14:08 ENT: Negative for drainage from ear(s), ear pain, sore throat, difficulty swallowing, cp difficulty handling secretions, 14:08 Abdomen/GI: Positive for nausea, Negative for vomiting, diarrhea, constipation, black/tarry stool, rectal bleeding, 14:08 : Negative for urinary symptoms, 14:08 Neuro: Positive for weakness, Negative for altered mental status, 14:08 All other systems are negative, Exam: 14:10 Constitutional: The patient appears in no acute distress, alert, awake, cp non-diaphoretic, non-toxic, well developed, well nourished, 14:10 Head/Face: Normocephalic, atraumatic. cp 14:10 Eyes: Periorbital structures: appear normal, Pupils: equal, round, and reactive to light and accomodation, Extraocular movements: intact throughout, Conjunctiva: normal, no exudate, no injection, Sclera: no appreciated abnormality, Lids and lashes: appear normal, bilaterally, 14:10 ENT: External ear(s): are unremarkable, Nose: is normal, Mouth: Lips: moist, Oral mucosa: moist, Posterior pharynx: Airway: no evidence of obstruction, patent, 14:10 Neck: ROM/movement: is normal, is supple, without pain, no range of motions limitations, 14:10 Chest/axilla: Inspection: normal, 14:10 Cardiovascular: Rate: bradycardic, Rhythm: regular, Edema: is not appreciated, JVD: is not appreciated, 14:10 Respiratory: the patient does not display signs of respiratory distress, Respirations: normal, no use of accessory muscles, no retractions, labored breathing, is not present, Breath sounds: are clear throughout, no decreased breath sounds, 14:10 Abdomen/GI: Inspection: abdomen appears normal, Bowel sounds: active, all quadrants, Palpation: soft, in all quadrants, mild abdominal tenderness, in the right upper quadrant and left upper quadrant, rebound tenderness, is not appreciated, involuntary guarding, is not appreciated, 14:10 Back: CVA tenderness, is absent, 14:10 Neuro: Orientation: to person, place \T\ time. Mentation: is normal, Motor: moves all fours, no focal deficits, Sensation: no obvious gross deficits, 14:33 ECG was reviewed by the Attending Physician. cp Vital Signs: 14:01 BP 113 / 70; Pulse 52; Resp 16 S; Temp 97(A); Pulse Ox 100% on R/A; aa5 14:31 BP 104 / 67; Pulse 96; Resp 18; Pulse Ox 100% on R/A; ll1 14:46 BP 103 / 68; Pulse 46; Resp 17; Pulse Ox 100% ; ll1 15:40 BP 105 / 60; Pulse 48; Resp 16; Pulse Ox 100% on R/A; jb4 16:40 BP 109 / 64; Pulse 49; Resp 16; Pulse Ox 100% on R/A; jb4 17:40 BP 108 / 71; Pulse 49; Resp 16; Pulse Ox 100% on R/A; jb4 19:40 BP 126 / 62; Pulse 49; Resp 12; Temp 98.1; Pulse Ox 100% ; Pain 3/10; bm8 21:30 BP 94 / 59; Pulse 50; Resp 16; Temp 98.1; Pulse Ox 100% ; Pain 2/10; bm8 22:25 BP 123 / 64; Pulse 50; Resp 12; Temp 98.1; Pulse Ox 100% ; Pain 6/10; bm8 23:15 BP 112 / 66; Pulse 49; Resp 14; Temp 98.2; Pulse Ox 100% ; Pain 0/10; bm8 19:40 Pain Scale: Adult bm8 21:30 Pain Scale: Adult bm8 22:25 Pain Scale: Adult bm8 23:15 Pain Scale: Adult bm8 Mechelle Coma Score: 19:40 Eye Response: spontaneous(4). Motor Response: obeys commands(6). Verbal Response: bm8 oriented(5). Total: 15. 21:30 Eye Response: spontaneous(4). Motor Response: obeys commands(6). Verbal Response: bm8 oriented(5). Total: 15. 23:15 Eye Response: spontaneous(4). Motor Response: obeys commands(6). Verbal Response: bm8 oriented(5). Total: 15. MDM: 13:49 Medical Screening Exam initiated lakhwinder 15:00 Differential diagnosis: drug effects, dehydration, electrolyte abnormality, cp cholelithiasis, cholecystitis, bowel obstruction, ileus. 19:40 Data reviewed: vital signs, nurses notes, lab test result(s), EKG, radiologic studies, cp CT scan, plain films, I have discussed the patient's presentation/case with the attending Emergency Department Physician;. 19:40 Management of patient was discussed with the following: Cafe Cook: DR Edwards, general surgery, recommends transfer for continuity of care and GI consult. 23:00 ED course: attempt to transfer to [facility] and [facility] for continuity cp of care in [facility] with surgeon unsuccessful due to facilities being at capacity. Transfer accepted to [facility]. 06/22 14:02 Order name: Basic Metabolic Panel; Complete Time: 15:14 06/22 15:14 Interpretation: Normal except: NA 125; K 2.7; CL 86; ANION GAP 15.7; CRE 1.04; GFR 59; cp CA 7.2. 06/22 14:02 Order name: CBC with Diff; Complete Time: 14:36 cp 06/22 14:36 Interpretation: Normal except: PLT 479; MPV 7.0; STAR% 77.6. cp 06/22 14:02 Order name: LFT's; Complete Time: 15:14 06/22 15:15 Interpretation: Normal except: AST 1615; ALT 1034; ALK 124; BILID 0.3. 06/22 14:02 Order name: Magnesium; Complete Time: 15:14 06/22 15:46 Interpretation: Reviewed. 06/22 14:02 Order name: NT PRO-BNP; Complete Time: 15:14 cp 06/22 14:02 Order name: PT-INR; Complete Time: 15:14 cp 06/22 14:02 Order name: Troponin HS; Complete Time: 15:14 06/22 14:02 Order name: Urinalysis W/Microscopic; Complete Time: 19:21 cp 06/22 14:02 Order name: Lactate w/ 2H reflex if indic.; Complete Time: 15:14 cp 06/22 14:02 Order name: Lipase; Complete Time: 15:14 06/22 14:02 Order name: XRAY Chest (1 view); Complete Time: 17:13 06/22 17:13 Interpretation: Report review. cp 06/22 14:18 Order name: Chest Abdomen Pelvis W Cont; Complete Time: 17:13 EDMS 06/22 17:14 Interpretation: Report reviewed. 06/22 14:18 Order name: Head C Spine Mpr Wo Con; Complete Time: 17:13 EDMS 06/22 19:24 Order name: US Abdomen Limited; Complete Time: 20:39 cp 06/22 20:40 Interpretation: Report reviewed. 06/22 14:02 Order name: Cardiac monitoring; Complete Time: 14:31 cp 06/22 14:02 Order name: EKG - Nurse/Tech; Complete Time: 14:31 cp 06/22 14:02 Order name: IV Saline Lock; Complete Time: 14:19 cp 06/22 14:02 Order name: Labs collected and sent; Complete Time: 14:19 cp 06/22 14:02 Order name: O2 Per Protocol; Complete Time: 14:09 cp 06/22 14:02 Order name: O2 Sat Monitoring; Complete Time: 14:09 cp 06/22 22:13 Order name: Misc. Order: please bolus NS; Complete Time: 22:14 cp EC:33 Rate is 45 beats/min. Rhythm is regular. CT interval is normal. QRS interval is cp prolonged at 102 msec. QT interval is prolonged at 558 msec. T waves are Inverted in lead aVL. Interpreted by me. Reviewed by me. Administered Medications: 14:31 Drug: NS 0.9% IV 500 ml IV at bolus once; to be given as a bolus over 30 minutes Route: ll1 IV; Rate: bolus; Site: left antecubital; 19:42 Follow up: Response: No adverse reaction; IV Status: Completed infusion; IV Intake: bm8 500ml 19:40 Drug: Potassium Chloride IV 20 mEq IV at calculated rate once; administer over 1-2 bm8 hours Route: IV; Rate: calculated rate; Site: left antecubital; 21:30 Follow up: Response: No adverse reaction; IV Status: Completed infusion; IV Intake: bm8 100ml 19:40 Drug: NS 0.9% IV 1000 ml IV at 75 ml/hr Per protocol Route: IV; Rate: 75 ml/hr; Site: bm8 left antecubital; 23:50 Follow up: Response: No adverse reaction; IV Status: Completed infusion; IV Intake: bm8 1000ml 22:27 Drug: fentaNYL (PF) IVP 25 mcg IVP once Route: IVP; Site: left antecubital; bm8 23:50 Follow up: Response: No adverse reaction bm8 Disposition: 06/23 09:34 Co-signature as Attending Physician, Salvador Douglas MD I agree with the assessment and lakhwinder plan of care. 23:06 Chart complete. cp Disposition Summary: 06/22/24 19:37 Transfer Ordered Notes: Transfer Location: [facility] cp Reason: Higher level of care cp Condition: Stable cp Problem: new cp Symptoms: have improved cp Accepting Physician: doctor(06/22/24 23:53) bm8 Diagnosis - Hypo-osmolality and hyponatremia cp - Hypokalemia cp - Abnormal findings on diagnostic imaging of liver and biliary tract cp - Abnormal results of liver function studies cp Forms: - Medication Reconciliation Form cp - SBAR form cp Signatures: Dispatcher [employer] EDMS Salvador Douglas MD MD cha Calderon, Audri, RN RN aa5 Pat Ding RN RN Salvador Martínez PA PA cp Elvin Machado, RN RN ll1 Dennis Hastings, RN RN bm8 Corrections: (The following items were deleted from the chart) 06/22 14:02 14:02 Chest Single View+RAD.RAD.BRZ ordered. EDMS EDMS 14:03 14:03 Head C Spine CAP W Con+CT.RAD.BRZ ordered. EDMS EDMS 14:05 14:01 PMHx: Fibromyalgia; aa5 aa5 23:53 19:37 doctor cp bm8 06/23 23:06 06/22 22:15 ED course: attempt to transfer to [facility] in [facility] and [facility] for cp continuity of care in [facility] with surgeon unsuccessful due to facilities being at capacity. Transfer accepted to [facility]. cp
--- NOTE | 2024-06-22 20:06 | RAD REPORT ---
Abdomen Exam Limited: 06/22/2024 7:42 PM CLINICAL HISTORY: gallbladder STUDY: Limited right upper quadrant ultrasound of abdomen. COMPARISON: Same day CT FINDINGS: Liver: Limited evaluation but grossly unremarkable. Bile ducts: No intrahepatic or extrahepatic biliary ductal dilatation. Common bile duct measures 5 mm. Gallbladder: Distended gallbladder with sludge. No stones identified. No gallbladder wall thickening. No pericholecystic fluid. IMPRESSION: Distended gallbladder with sludge may be from fasting. No sonographic evidence of cholelithiasis, acu te cholecystitis, or biliary ductal dilatation.
[2024-06-22] MEDS ORDERED: FENTANYL CITR 100 MCG/2 ML ONE (22:16)
--- NOTE | 2024-06-23 11:50 | EKG ---
Test Date: 2024-06-22 Test Time: 14:26:50 Intermediate Project Manager: LALIT MEASUREMENT RESULTS: Intervals: Rate: 45 KS: 166 QRSD: 102 QT: 558 QTc: 482 [place]: P: 56 KS: 166 QRS: 88 T: 143 INTERPRETIVE STATEMENTS: Marked sinus bradycardia ST & T wave abnormality, consider inferior ischemia ST & T wave abnormality, consider anterolateral ischemia Prolonged QT Abnormal ECG Compared to ECG 12/13/2021 16:05:46 ST (T wave) deviation now present Possible ischemia now present Prolonged QT interval now present Sinus rhythm no longer present Electronically Signed On 06-23-24 11:49:52 PRODUCT DELIVERY SPECIALIST by Gato Christiansen
[2024-06-24 02:34] VITALS: BP 123/64; TEMP 98.1; O2SAT 100
== END 2024-06-22 23:53 | disposition short-term general hospital (02) ==
LOC: ER 13:42
DX: E87.1 Hypo-osmolality and hyponatremia (principal); E87.6 Hypokalemia; I95.9 Hypotension, unspecified; R94.5 Abnormal results of liver function studies; R93.2 Abnormal findings on diagnostic imaging of liver and biliary tract; E78.00 Pure hypercholesterolemia, unspecified; I10 Essential (primary) hypertension; G25.81 Restless legs syndrome; M19.90 Unspecified osteoarthritis, unspecified site; M79.7 Fibromyalgia; M81.0 Age-related osteoporosis without current pathological fracture; Z98.84 Bariatric surgery status; Z96.651 Presence of right artificial knee joint; Z98.890 Other specified postprocedural states; Z91.81 History of falling
CPT/HCPCS: 96365; 96361; 93005; 85025; 81001; 80048; 36415; 83735; 85610; 80076; 83605; 84484; 83690; 83880; 70450; 72125; 71260; 74177; 71045; 76705; 96375; 99285; 96366; Q9967; J3480; J3010; J7040; J7030

== ENCOUNTER 2024-10-24 11:54 | Emergency (ER) | payer OTHER ==
--- NOTE | 2024-10-24 12:55 | RAD REPORT ---
EXAM: Chest Single View HISTORY: 64 years Female TRAUMA COMPARISON: 06/22/2024 FINDINGS: LUNGS/PLEURA: The lungs are clear. No pleural effusions or pneumothorax. No pulmonary edema. CARDIAC/MEDIASTINUM: Mild cardiomegaly UPPER ABDOMEN: No significant abnormality. BONES: No acute abnormality. LINES/TUBES/OTHER: Left shoulder ORIF. IMPRESSION: No evidence of acute cardiopulmonary disease.
[2024-10-24 13:08] LABS: Absolute Basophils 0.1 K/uL (0-0.5); Absolute Eosinophils 0.1 K/uL (0-0.5); Absolute Lymphocytes (CBC) 2.5 K/uL (0.7-4.9); Absolute Monocytes 0.8 K/uL (0.1-1.3); Absolute Neutrophil 3.5 K/uL (1.8-8.0); Basophils % 0.9 % (0-1.3); Eosinophils % 2.1 % (0-4.4); Hematocrit 31.9 % (36.0-45.0); Hemoglobin 10.4 g/dL (12.0-15.0); Lymphocytes % 35.1 % (15.3-44.8); MCH 26.9 pg (27.0-35.0); MCHC 32.8 g/dL (32.0-36.0); MCV 82.1 fL (80-100); MPV 7.4 fL (7.6-11.3); Monocytes % 11.4 % (3.3-12.3); Neutrophils % 50.5 % (41.7-73.7); Platelets 350 thou/uL (152-406); RBC Red Blood Cell Count 3.88 M/uL (3.86-4.86); Red Cell Distribution Width 17.9 % (12.1-15.2)
[2024-10-24 13:26] LABS: Anion Gap 10.9 mEq/L (5.0-15.0); Potassium 3.9 mEq/L (3.5-5.1)
[2024-10-24 13:32] LABS: Specific Gravity 1.009 (1.005-1.030); Urine Bilirubin NEGATIVE (Negative); Urine Blood Negative (Negative); Urine Clarity Clear (Clear); Urine Color Light-Yellow (Yellow); Urine Glucose NEGATIVE (Negative); Urine Ketones NEGATIVE (Negative); Urine Microscopic Reflex YN NO UMIC; Urine Nitrite NEGATIVE (Negative); Urine Protein NEGATIVE (Negative); Urine Urobilinogen Normal (Normal)
--- NOTE | 2024-10-24 13:43 | EDPHYS ---
Physician Documentation [facility] Name: Pastora Amador Age: 64 yrs Sex: Female : 1960 Arrival Date: 10/24/2024 Time: 11:54 Bed 19 Private MD: ED Physician Blanquita Hendricks HPI: 10/24 13:46 This 64 yrs old Female presents to ER via Wheelchair with complaints of Fall gb1 Injury - ELBOW, KNEES, CHEST. 13:46 64-year-old female was in x-ray getting her right wrist x-rayed when she was walking gb1 back out to the chairs in the waiting area and stumbled over her feet and fell with abrasions now on her knees and both elbows. She did not hit her head she is not on any blood thinning medications. She had no loss of consciousness and she remembers the event completely. She has a history of hyperlipidemia fibromyalgia, gout, chronic back pain, migraine and osteoarthritis. She is currently being evaluated for physical therapy for crossing her feet when she walks and often trips. She denies any nausea vomiting and her was there and denies any seizure activity.. Historical: - Allergies: 12:17 Sulfa (Sulfonamide Antibiotics); ap3 - PMHx: 12:17 chronic back pain; Fibromyalgia; Gout; High Cholesterol; Hypertension; Migraine; ap3 osteoarthritis; Osteoporosis; restless leg syndrome; - PSHx: 12:17 section; Back Sx 2022; Gastric bypass 2021; Gastric bypass revision Jun.06; ap3 Gastric bypass revision Jun.06; hysterectomy; Left shoulder sx; Left shoulder sx; neck sx 2011; right knee meniscus sx; right knee total replacement; - Immunization history:: Adult Immunizations up to date, Client reports receiving the 2nd dose of the Covid vaccine, Last tetanus immunization: up to date Pneumococcal vaccine is up to date, Flu vaccine is up to date. - Infectious Disease History:: Denies. - Social history:: Smoking status: Patient denies any tobacco usage or history of. Exam: 13:46 Constitutional: This is a well developed, well nourished patient who is awake, alert, gb1 and in no acute distress. Head/Face: Normocephalic, atraumatic. Eyes: Pupils equal round and reactive to light, extra-ocular motions intact. Lids and lashes normal. Conjunctiva and sclera are non-icteric and not injected. Cornea within normal limits. Periorbital areas with no swelling, redness, or edema. ENT: Nares patent. No nasal discharge, no septal abnormalities noted. Tympanic membranes are normal and external auditory canals are clear. Oropharynx with no redness, swelling, or masses, exudates, or evidence of obstruction, uvula midline. Mucous membranes moist. Neck: Trachea midline, no thyromegaly or masses palpated, and no cervical lymphadenopathy. Supple, full range of motion without nuchal rigidity, or vertebral point tenderness. No Meningismus. Chest/axilla: Normal chest wall appearance and motion. Nontender with no deformity. No lesions are appreciated. Cardiovascular: Regular rate and rhythm with a normal S1 and S2. No gallops, murmurs, or rubs. Normal PMI, no JVD. No pulse deficits. Respiratory: Lungs have equal breath sounds bilaterally, clear to auscultation and percussion. No rales, rhonchi or wheezes noted. No increased work of breathing, no retractions or nasal flaring. Back: No spinal tenderness. No costovertebral tenderness. Full range of motion. Skin: Warm, dry with normal turgor. Normal color with no rashes, no lesions, and no evidence of cellulitis. MS/ Extremity: Pulses equal, no cyanosis. Neurovascular intact. Full, normal range of motion. Patient has abrasions to superficial on bilateral elbows and knees. Extensor surfaces. Vital Signs: 12:15 BP 191 / 87; Pulse 63; Resp 17; Temp 97.5(O); Pulse Ox 100% on R/A; Weight 65.77 kg; ap3 13:00 BP 180 / 83; Pulse 56; Resp 12; Pulse Ox 100% ; me1 13:58 BP 150 / 73; Pulse 56; Resp 11; Temp 98.4; Pulse Ox 98% ; me1 MDM: 12:02 Medical Screening Exam initiated gb1 13:46 Data reviewed: vital signs, nurses notes, lab test result(s), cardiac enzymes, CBC, gb1 electrolytes, urinalysis. 13:46 ED course: 64-year-old female with a ground-level fall likely mechanical in nature. Low gb1 concern for syncopal episode she has chronic medical problems and she is currently undergoing physical therapy for crossing her feet and being at increased risk of falls. She has no neurological symptoms has a nonfocal neuroexam and otherwise has a urinalysis that is normal and labs that are normal. I will discharge her home to follow-up with her outpatient neurologist and physical therapy to be continued. This is likely a mechanical fall.. 13:48 ED course: EKG shows sinus bradycardia at 57 bpm. She has normal intervals and axis. gb1 She has inverted T waves in V1. EKG time is 1250.. 10/24 12:16 Order name: Basic Metabolic Panel; Complete Time: 13:31 10/24 12:16 Order name: CBC with Diff; Complete Time: 13: 10/24 12:16 Order name: NT PRO-BNP; Complete Time: 13:10/24 12:16 Order name: Troponin HS; Complete Time: 13:10/24 13:20 Order name: UA Rfx Josh Cult if indicated; Complete Time: 13:33 10/24 12:16 Order name: XRAY Chest (1 view); Complete Time: 13:07 10/24 12:16 Order name: Cardiac monitoring; Complete Time: 12:18 10/24 12:16 Order name: EKG - Nurse/Tech; Complete Time: 13:10/24 12:16 Order name: IV Saline Lock; Complete Time: 13:10/24 12:16 Order name: Labs collected and sent; Complete Time: 13:19 10/24 12:16 Order name: O2 Per Protocol; Complete Time: 12:18 10/24 12:16 Order name: O2 Sat Monitoring; Complete Time: 12:18 gb Administered Medications: No medications were administered Disposition Summary: 10/24/24 13:43 Discharge Ordered Notes: Location: Home gb1 Condition: Stable gb1 Diagnosis - Fall on same level, unspecified gb1 - Abrasion of lower leg gb1 - Abrasion of right elbow gb1 - Abrasion of left elbow gb1 Followup: gb1 - With: Private Physician - When: - Reason: Recheck today's complaints Discharge Instructions: - Discharge Summary Sheet gb1 - Abrasion, [id number] gb1 Forms: - Medication Reconciliation Form gb1 - Antibiotic Education gb1 - Prescription Opioid Use gb1 - Patient Portal Instructions gb1 - Leadership Thank You Letter gb1 Signatures: Dispatcher [employer] Dorie Kevin RN RN ap3 Blanqutia Hendricks MD MD gb1 Corrections: (The following items were deleted from the chart) 12:17 12:17 Chest Single View+RAD.RAD.BRZ ordered. EDMS EDMS
--- NOTE | 2024-10-24 13:43 | ER ---
Nurse's Notes [facility] Name: Pastora Amador Age: 64 yrs Sex: Female : 1960 Arrival Date: 10/24/2024 Time: 11:54 Bed 19 Private MD: Diagnosis: Fall on same level, unspecified;Abrasion of lower leg;Abrasion of right elbow;Abrasion of left elbow Presentation: 10/24 12:15 Chief complaint: Patient states: she fell after getting xrays today, falling on her ap3 right elbow, both knees and chest. she denies hitting her head. patient reports she has been having a few falls in the last few weeks. Coronavirus screen: At this time, the client does not indicate any symptoms associated with coronavirus-19. Ebola Screen: No symptoms or risks identified at this time. Initial Sepsis Screen: Does the patient meet any 2 criteria? No. Patient's initial sepsis screen is negative. Does the patient have a suspected source of infection? No. Patient's initial sepsis screen is negative. Risk Assessment: Do you want to hurt yourself or someone else? Patient reports no desire to harm self or others. Onset of symptoms is unknown. 12:15 Method Of Arrival: Wheelchair ap3 12:15 Acuity: EDY 2 ap3 Triage Assessment: 12:17 General: Appears in no apparent distress. Behavior is calm, cooperative, agitated. ap3 Pain: Complains of pain in chest, right arm, right leg and left leg. Neuro: Level of Consciousness is awake, alert, obeys commands, Oriented to person, place, time, situation, Appropriate for age. Cardiovascular: Patient's skin is warm and dry. Respiratory: Airway is patent Respiratory effort is even, unlabored, Respiratory pattern is regular, symmetrical. Historical: - Allergies: 12:17 Sulfa (Sulfonamide Antibiotics); ap3 - PMHx: 12:17 chronic back pain; Fibromyalgia; Gout; High Cholesterol; Hypertension; Migraine; ap3 osteoarthritis; Osteoporosis; restless leg syndrome; - PSHx: 12:17 section; Back Sx 2022; Gastric bypass 2021; Gastric bypass revision Jun.06; ap3 Gastric bypass revision Jun.06; hysterectomy; Left shoulder sx; Left shoulder sx; neck sx 2011; right knee meniscus sx; right knee total replacement; - Immunization history:: Adult Immunizations up to date, Client reports receiving the 2nd dose of the Covid vaccine, Last tetanus immunization: up to date Pneumococcal vaccine is up to date, Flu vaccine is up to date. - Infectious Disease History:: Denies. - Social history:: Smoking status: Patient denies any tobacco usage or history of. Screenin:18 [facility] ED Fall Risk Assessment (Adult) History of falling in the last 3 months, ap3 including since admission Yes- fall prone (multiple falls) (3 pts) Confusion or Disorientation No (0 pts) Intoxicated or Sedated No (0 pts) Impaired Gait No (0 pts) Mobility Assist Device Used No (0 pt) Altered Elimination No (0 pt) Score/Fall Risk Level 0 - 2 = Low Risk Oriented to surroundings, Maintained a safe environment, Educated pt \T\ family on fall prevention, incl call for assistance when getting out of bed, Assessed \T\ reinforced patient's understanding of fall precautions, Hourly rounding (assess needs \T\ fall precautionary measures) done, Used ambulatory aids as needed (educated on \T\ assisted with). Abuse screen: Denies threats or abuse. Nutritional screening: No deficits noted. Tuberculosis screening: No symptoms or risk factors identified. Assessment: 12:00 General: Appears in no apparent distress. well groomed, well developed, well nourished, me1 Behavior is calm, cooperative, appropriate for age, Reports she fell after getting xrays today, falling on her right elbow, both knees and chest. she denies hitting her head. patient reports she has been having a few falls in the last few weeks. Pain: Complains of pain in left leg and right leg and right arm and chest Pain does not radiate. Pain currently is 6 out of 10 on a pain scale. Quality of pain is described as aching, Pain began suddenly, Is continuous. Neuro: Level of Consciousness is awake, alert, obeys commands, Oriented to person, place, time, situation, Appropriate for age. Cardiovascular: Patient's skin is warm and dry. Respiratory: Airway is patent Respiratory effort is even, unlabored, Respiratory pattern is regular, symmetrical. GI: No signs and/or symptoms were reported involving the gastrointestinal system. : No signs and/or symptoms were reported regarding the genitourinary system. EENT: No signs and/or symptoms were reported regarding the EENT system. Derm: Skin is intact, is healthy with good turgor, Skin is pink, warm \T\ dry. Derm: Skin Wound noted right arm Wound is abrasion to right elbow. Musculoskeletal:. Musculoskeletal: Reports pain in left leg and right leg and right arm and chest. Injury Description: she fell after getting xrays today, falling on her right elbow, both knees and chest. she denies hitting her head. patient reports she has been having a few falls in the last few weeks. Vital Signs: 12:15 BP 191 / 87; Pulse 63; Resp 17; Temp 97.5(O); Pulse Ox 100% on R/A; Weight 65.77 kg; ap3 13:00 BP 180 / 83; Pulse 56; Resp 12; Pulse Ox 100% ; me1 13:58 BP 150 / 73; Pulse 56; Resp 11; Temp 98.4; Pulse Ox 98% ; me1 ED Course: 11:59 Patient arrived in ED. cj3 12:00 Blanquita Hendricks MD is Attending Physician. gb1 12:00 Patient has correct armband on for positive identification. Bed in low position. Call me1 light in reach. Side rails up X2. Provided Education on: POC. Verbalized understanding.. 12:00 No provider procedures requiring assistance completed. me1 12:17 Triage completed. ap3 12:18 Arm band placed on right wrist. ap3 12:18 Client placed on continuous cardiac and pulse oximetry monitoring. NIBP monitoring ap3 applied. optical goods drill operator on. Pulse ox on. NIBP on. 12:30 Maryana Nieves, RN is Primary Nurse. me1 12:51 XRAY Chest (1 view) In Process Unspecified. EDMS 13:04 Initial lab(s) drawn, by il, sent to lab. EKG done, by ED staff, reviewed by Blanquita Hendricks MD. Inserted saline lock: 22 gauge in right antecubital area, using aseptic technique. 13:19 Basic Metabolic Panel Sent. me1 13:19 NT PRO-BNP Sent. me1 13:19 Troponin HS Sent. me1 13:26 UA Rfx Josh Cult if indicated Sent. me1 14:16 IV discontinued, intact, bleeding controlled, No redness/swelling at site. Pressure me1 dressing applied. Administered Medications: No medications were administered Medication: 12:00 VIS not applicable for this client. me1 Outcome: 13:43 Discharge ordered by . gb1 14:16 Discharged to home ambulatory, il1 14:16 Condition: stable 14:16 Discharge instructions given to patient, Instructed on discharge instructions, follow up and referral plans. Demonstrated understanding of instructions, follow-up care, 14:16 Patient left the ED. me1 Signatures: Dispatcher [employer] Dorie Kevin RN RN ap3 Maryana Nieves RN RN me1 Blanquita Hendricks MD MD gb1 Catherine Ernst cj3 Corrections: (The following items were deleted from the chart) 13:15 12:15 Chief complaint: Patient states: she fell after getting xrays today, falling on me1 her right elbow, both knees and chest. she denies hitting her head. patient reports she has been having a few falls in the last few weeks. ap3
[2024-10-24 14:30] VITALS: BP 150/73; TEMP 98.4; O2SAT 98
== END 2024-10-24 14:16 | disposition home or self-care (01) ==
LOC: ER 11:54
DX: S80.812A Abrasion, left lower leg, initial encounter (principal); S80.811A Abrasion, right lower leg, initial encounter; S50.312A Abrasion of left elbow, initial encounter; S50.311A Abrasion of right elbow, initial encounter; W18.30XA Fall on same level, unspecified, initial encounter; Z96.651 Presence of right artificial knee joint; Z98.84 Bariatric surgery status
CPT/HCPCS: 36415; 71045; 80048; 81003; 83880; 84484; 85025; 93005; 99284

== ENCOUNTER 2025-03-01 11:13 | Observation (INO) | payer OTHER ==
[2025-03-01 11:34] LABS: Absolute Lymphocytes (CBC) 3.5 K/uL (0.7-4.9); Hematocrit 36.3 % (36.0-45.0); Hemoglobin 12.0 g/dL (12.0-15.0); MCH 30.0 pg (27.0-35.0); MCHC 33.0 g/dL (32.0-36.0); MCV 91.1 fL (80-100); MPV 7.3 fL (7.6-11.3); Nucleated RBC Absolute Count 0.0 (0-0); Nucleated Red Blood Cells % 0.1 % (0-0); RBC Red Blood Cell Count 3.98 M/uL (3.86-4.86); White Blood Count 7.80 thou/uL (4.3-10.9)
[2025-03-01] MEDS ORDERED: FAMOTIDINE 20 MG/2 ML VIAL IV ONE (11:37)
[2025-03-01] MEDS ORDERED: ASPIRIN 81 MG CHEWABLE TABLET ONE (11:37)
[2025-03-01] MEDS ORDERED: NA CHLORIDE 0.9% 1,000 ML ONE (11:38)
[2025-03-01 11:45] LABS: PT Prothrombin Time 10.4 SECONDS (10-13.0); Protime INR 0.92
[2025-03-01 11:55] LABS: ALT/SGPT 19 U/L (13-56); AST/SGOT 26 U/L (15-37); Albumin 3.6 g/dL (3.4-5.0); Albumin/Globulin Ratio 1.0 (1.1-1.8); Alkaline Phosphatase 95 U/L (45-117); Anion Gap 11.6 mEq/L (5.0-15.0); BUN Blood Urea Nitrogen 16 mg/dL (7-18); Globulin 3.7 g/dL (2.3-3.5); Glucose Level 76 mg/dL (74-106); Lipase 27 U/L (13-75); Magnesium 2.4 mg/dL (1.6-2.4); NT PRO-BNP 1009 pg/mL (<125); Potassium 3.6 mEq/L (3.5-5.1); Troponin High Sensitivity 11.0 pg/mL (<58.9)
[2025-03-01 12:00] LABS: Bilirubin Indirect, Calculated 0.1 mg/dL (0.2-0.8)
--- NOTE | 2025-03-01 13:27 | RAD REPORT ---
EXAM: Angio Aorta For Dissection HISTORY: HS MAIN NA DISSECTION Bed Name: 4 COMPARISON: None TECHNIQUE: Multiple contiguous axial images were obtained a CTA of the chest and abdomen with contras t per aortic dissection protocol. Sagittal and coronal 3-D MIP reformats were performed. One or more of the following dose reduction techniques were used: Automated exposure control, adjustment of the mA and kV according to patient size, and iterative reconstruction. Unless otherwise specified, incidental findings do not require dedicated imaging follow-up. FINDINGS: PULMONARY ARTERIES: Normal in caliber without filling defects to suggest pulmonary emboli. MEDIASTINUM: No hilar or mediastinal lymphadenopathy. LUNGS: No focal infiltrates or masses. PLEURAL SPACE: No pleural effusion or pneumothorax. LIVER: Unremarkable. KIDNEYS: Unremarkable. SPLEEN: Unremarkable. PANCREAS: Unremarkable. BOWEL: Sequelae of gastric bypass. RETROPERITONEUM: No lymphadenopathy BONES: Degenerative changes in the spine. Sequelae of posterior protrusion hardware fusion at L2-L5. 2.2 cm right iliac densely sclerotic lesions suggestive of a bone island ASCENDING THORACIC AORTA: Normal caliber without evidence of dissection or aneurysmal dilatation. Ab errant right subclavian artery DESCENDING THORACIC AORTA: Normal caliber without evidence of dissection or aneurysmal dilatation. ABDOMINAL AORTA: Normal caliber without evidence of dissection or aneurysmal dilatation. CELIAC TRUNK: Patent SMA: Patent MADELINE: Patent RENAL ARTERIES: Bilateral single renal arteries without significant atherosclerotic disease IMPRESSION: No evidence of thoracic or abdominal aortic aneurysm or dissection. Incidental findings as above.
--- NOTE | 2025-03-01 13:52 | EDPHYS ---
Physician Documentation [facility] Name: Pastora Amador Age: 65 yrs Sex: Female : 1960 Arrival Date: 03/01/2025 Time: 11:13 Bed 27 Private MD: KAMINI Physician Salvador Douglas HPI: 03/01 11:52 This 65 yrs old Female presents to ER via Wheelchair with complaints of Chest lakhwinder Pain, Dizziness, Sweating, Numbness Of Arm - LT. 11:52 The patient or guardian reports chest pain that is located primarily in the substernal lakhwinder area. Onset: just prior to arrival. The pain radiates to the left arm. Associated signs and symptoms: Pertinent positives: lightheadedness, nausea. The chest pain is described as causing indigestion. Duration: The patient or guardian reports a single episode, that is still ongoing. Modifying factors: The symptoms are alleviated by nothing. the symptoms are aggravated by nothing. Severity of pain: At its worst the pain was moderate in the emergency department the pain is unchanged. The patient has not experienced similar symptoms in the past. Historical: - Allergies: 11:20 Sulfa (Sulfonamide Antibiotics); ll1 - PMHx: 11:20 chronic back pain; Fibromyalgia; Gout; High Cholesterol; Hypertension; Migraine; ll1 osteoarthritis; Osteoporosis; restless leg syndrome; - PSHx: 11:20 Back Sx 2022; section; Gastric bypass 2021; Gastric bypass revision Jun.06; ll1 Gastric bypass revision Jun.06; Gastric bypass revision Jun.06; hysterectomy; Left shoulder sx; neck sx 2011; right knee meniscus sx; right knee total replacement; - Immunization history:: Adult Immunizations up to date. - Infectious Disease History:: Denies. - Family history:: not pertinent. - Social history:: Smoking status: Patient denies any tobacco usage or history of. ROS: 11:52 Constitutional: Negative for fever, chills, and weight loss, Eyes: Negative for injury, lakhwinder pain, redness, and discharge, ENT: Negative for injury, pain, and discharge, Neck: Negative for injury, pain, and swelling, Respiratory: Negative for shortness of breath, cough, wheezing, and pleuritic chest pain, Abdomen/GI: Negative for abdominal pain, nausea, vomiting, diarrhea, and constipation, Back: Negative for injury and pain, : Negative for injury, bleeding, discharge, and swelling, MS/Extremity: Negative for injury and deformity, Skin: Negative for injury, rash, and discoloration, Neuro: Negative for headache, weakness, numbness, tingling, and seizure, Psych: Negative for depression, anxiety, suicide ideation, homicidal ideation, and hallucinations, Allergy/Immunology: Negative for hives, rash, and allergies, Endocrine: Negative for neck swelling, polydipsia, polyuria, polyphagia, and marked weight changes, Hematologic/Lymphatic: Negative for swollen nodes, abnormal bleeding, and unusual bruising, 11:52 Cardiovascular: Positive for chest pain, Exam: 11:52 Constitutional: This is a well developed, well nourished patient who is awake, alert, lakhwinder and in no acute distress. Head/Face: Normocephalic, atraumatic. Eyes: Pupils equal round and reactive to light, extra-ocular motions intact. Lids and lashes normal. Conjunctiva and sclera are non-icteric and not injected. Cornea within normal limits. Periorbital areas with no swelling, redness, or edema. ENT: Nares patent. No nasal discharge, no septal abnormalities noted. Tympanic membranes are normal and external auditory canals are clear. Oropharynx with no redness, swelling, or masses, exudates, or evidence of obstruction, uvula midline. Mucous membranes moist. Neck: Trachea midline, no thyromegaly or masses palpated, and no cervical lymphadenopathy. Supple, full range of motion without nuchal rigidity, or vertebral point tenderness. No Meningismus. Chest/axilla: Normal chest wall appearance and motion. Nontender with no deformity. No lesions are appreciated. Cardiovascular: Regular rate and rhythm with a normal S1 and S2. No gallops, murmurs, or rubs. Normal PMI, no JVD. No pulse deficits. Respiratory: Lungs have equal breath sounds bilaterally, clear to auscultation and percussion. No rales, rhonchi or wheezes noted. No increased work of breathing, no retractions or nasal flaring. Abdomen/GI: Soft, non-tender, with normal bowel sounds. No distension or tympany. No guarding or rebound. No evidence of tenderness throughout. Back: No spinal tenderness. No costovertebral tenderness. Full range of motion. Female : Normal external genitalia. Skin: Warm, dry with normal turgor. Normal color with no rashes, no lesions, and no evidence of cellulitis. MS/ Extremity: Pulses equal, no cyanosis. Neurovascular intact. Full, normal range of motion., bilateral aka Neuro: Awake and alert, GCS 15, oriented to person, place, time, and situation. Cranial nerves II-XII grossly intact. Motor strength 5/5 in all extremities. Sensory grossly intact. Cerebellar exam normal. Normal gait. Psych: Awake, alert, with orientation to person, place and time. Behavior, mood, and affect are within normal limits. 11:52 ECG was reviewed by the Attending Physician. 11:52 Musculoskeletal/extremity: ROM: intact in all extremities, full active range of motion, full passive range of motion, Circulation is intact in all extremities. Sensation intact. Compartment Syndrome exam of affected extremity: is normal. DVT Exam: No signs of deep vein thrombosis. no pain, no swelling, no tenderness, negative Homans' sign noted on exam, no appreciated bluish discoloration, no erythema, no increased warmth, 14:10 ECG was reviewed by the Attending Physician. [facility] Vital Signs: 11:27 BP 134 / 67; Pulse 66; Resp 20; Pulse Ox 97% on R/A; Pain 10/10; iw 13:09 BP 130 / 61; Pulse 81; Resp 18; Pulse Ox 99% on R/A; hb 14:08 BP 157 / 89; Pulse 64; Resp 16; Temp 98.2; Pulse Ox 98% on R/A; Weight 75.75 kg (R); iw Pain 6/10; 16:45 BP 145 / 77; Pulse 64; Resp 18; Pulse Ox 100% ; Pain 5/10; rg5 11:27 Pain Scale: Adult iw 14:08 Pain Scale: Adult iw 16:45 Pain Scale: Adult rg5 NIH Stroke Scale Scores: 13:51 NIHSS Score: 0 lakhwinder Mechelle Coma Score: 11:52 Eye Response: spontaneous(4). Motor Response: obeys commands(6). Verbal Response: lakhwinder oriented(5). Total: 15. MDM: 11:18 Medical Screening Exam initiated kb 11:58 Differential diagnosis: abnormal EKG, acute myocardial infarction, acute pericarditis, lakhwinder anxiety, coronary artery disease chest wall pain, congestive heart failure cholecystitis, Cholelithiasis costochondritis, esophagitis, hiatal hernia, pancreatitis, peptic ulcer disease, pericarditis, pleurisy, pneumonia, pneumothorax, pulmonary embolus, stable angina, thoracic aortic disection, unstable angina. HEART Score: History: Moderately Suspicious (1), ECG: Non specific repolarization disturbance / LBTB / PM (1), Age: > or = 65 years (2), Risk Factors: > or = 3 Risk factors for atherosclerotic disease (2), [Hypercholesterolemia] [Hypertension] [+ Family HX] [Obesity] Troponin: < or = 1 x Normal Limit (0). The patient was given aspirin in the Emergency Department. Data reviewed: vital signs, nurses notes, lab test result(s), EKG, radiologic studies, CT scan, plain films. Consideration of Admission/Observation Patient was admitted/placed on observation. Escalation of care including admission/observation considered. I considered the following discharge prescriptions or medication management in the emergency department Medications were administered in the Emergency Department. See MAR. Independent interpretation of the following test(s) in the Emergency Department EKG: See my EKG interpretation above. Test considered but Not performed: Ultrasound NO 2 D ECHO. Historians other than the Patient: PT WELL INFORMED. Care significantly affected by the following chronic conditions: Hypertension, Obesity, HIGH CHLESTEROL, FIBROMYALGIA. Counseling: I had a detailed discussion with the patient and/or guardian regarding the historical points, exam findings, and any diagnostic results supporting the discharge/admit diagnosis, lab results, radiology results, the need for further work-up and treatment in the hospital. 03/01 11:21 Order name: Basic Metabolic Panel; Complete Time: 12:32 lakhwinder 03/01 11:21 Order name: CBC with Diff; Complete Time: 12:32 [facility] 03/01 11:21 Order name: LFT's; Complete Time: 12:32 03/01 11:21 Order name: Magnesium; Complete Time: 12:32 [facility] 03/01 11:21 Order name: NT PRO-BNP; Complete Time: 12:32 03/01 11:21 Order name: PT-INR; Complete Time: 12:32 03/01 11:21 Order name: Troponin HS; Complete Time: 12:32 03/01 11:21 Order name: Lipase; Complete Time: 12:32 [facility] 03/01 11:21 Order name: UA Rfx Josh Cult if indicated /24 13:48 Order name: Troponin High Sensitivity [facility] 03/01 14:05 Order name: Basic Metabolic Panel [facility] 03/01 14:05 Order name: Basic Metabolic Panel [facility] 03/01 14:05 Order name: CBC with Automated Diff [facility] 03/01 14:05 Order name: CBC with Automated Diff [facility] 03/01 14:05 Order name: Troponin High Sensitivity [facility] 03/01 11:21 Order name: XRAY Chest (1 view) [facility] 03/01 11:51 Order name: CT Aorta for Dissection; Complete Time: 13:47 [facility] 03/01 13:48 Order name: EKG; Complete Time: 13:48 [facility] 03/01 14:00 Order name: CONS Physician Consult [facility] 03/01 14:05 Order name: EKG Electrocardiogram [facility] 03/01 14:05 Order name: EKG Electrocardiogram [facility] 03/01 14:05 Order name: EKG Electrocardiogram [facility] 03/01 14:05 Order name: EKG Electrocardiogram [facility] 03/01 11:21 Order name: Cardiac monitoring; Complete Time: 11:30 [facility] 03/01 11:21 Order name: EKG - Nurse/Tech; Complete Time: 11:30 [facility] 03/01 11:21 Order name: IV Saline Lock; Complete Time: 11:30 [facility] 03/01 11:21 Order name: Labs collected and sent; Complete Time: 11:30 [facility] 03/01 11:21 Order name: O2 Per Protocol; Complete Time: 11:30 [facility] 03/01 11:21 Order name: O2 Sat Monitoring; Complete Time: 11:30 [facility] 03/01 11:51 Order name: Bilateral blood pressure; Complete Time: 12:20 [facility] 03/01 13:48 Order name: EKG - Nurse/Tech; Complete Time: 14:09 [facility] EC:52 Rate is 61 beats/min. Rhythm is regular. QRS [place] is Normal. OR interval is normal. QRS lakhwinder interval is normal. QT interval is normal. No Q waves. T waves are Normal. No ST changes noted. Interpreted by me. Reviewed by me. 14:10 Rate is 60 beats/min. Rhythm is regular. QRS [place] is Normal. OR interval is normal. QRS lakhwinder interval is normal. QT interval is normal. No Q waves. T waves are Normal. No ST changes noted. Clinical impression: Normal ECG and No evidence of ischemia. Interpreted by me. Reviewed by me. Administered Medications: 11:43 Drug: Aspirin PO Chewable Tablet 324 mg PO once; 81 mg tablets x 4 Route: PO; iw 12:20 Follow up: Response: No adverse reaction iw 11:43 Drug: Famotidine IVP 20 mg IVP once; dilute with 10 mL 0.9% NaCl; give over 2 minutes iw Route: IVP; Site: right antecubital; 12:30 Follow up: Response: No adverse reaction; Pain is unchanged, physician notified iw 11:43 Drug: NS 0.9% IV 1000 ml IV at 1000 ml once; to be given as a bolus over 60 minutes iw Route: IV; Rate: 1000 ml; Site: right antecubital; 15:00 Follow up: IV Status: Completed infusion iw 14:52 Drug: morphine IVP or IV 2 mg IVP once over 4 mins Route: IVP; Infused Over: 4 mins; iw Site: right antecubital; 15:30 Follow up: Response: No adverse reaction; Pain is decreased iw 14:52 Drug: morphine IVP or IV 2 mg IVP once over 4 mins Route: IVP; Infused Over: 4 mins; iw Site: right antecubital; 15:30 Follow up: Response: No adverse reaction; Pain is decreased iw 14:52 Drug: Ondansetron IVP 4 mg IVP once; over 2 minutes Route: IVP; Site: right antecubital;iw 15:30 Follow up: Response: No adverse reaction iw 14:53 Drug: Enoxaparin Sub-Q 1 mg/kg Sub-Q once Route: Sub-Q; Site: right lower abdomen; iw 16:30 Follow up: Response: No adverse reaction iw Disposition Summary: 03/01/25 13:51 Hospitalization Ordered Notes: Hospitalization Status: Observation lakhwinder Provider: Gerson Jones cha Condition: Stable lakhwinder Problem: new lakhwinder Symptoms: have improved lakhwinder Bed/Room Type: Standard lakhwinder Location: Telemetry/MedSurg (observation)(03/01/25 18:52) bd Room Assignment: 427(03/01/25 18:52) bd Diagnosis - Chest pain, unspecified lakhwinder - Dizziness and giddiness lakhwinder Forms: - Medication Reconciliation Form lakhwinder - SBAR form lakhwinder - Leadership Thank You Letter lakhwinder NIH Stroke Scale - NIH Stroke Score Date: 03/01/2025 Time: 13:51 Total Score = 0 10. Dysarthria (speech clarity - read or repeat words) - 0(Normal) 11. Extinction and Inattention (visual/tactile/auditory/spatial/personal) - 0(No abnormality) 1a. Level of Consciousness (LOC) - 0(Alert) 1b. Level of Consciousness (LOC) (Month \T\ Age) - 0(Both) 1c. LOC Commands (Open \T\ Closes Eyes/Product Applications Engineer) - 0(Both) 2. Best Gaze (Lateral Gaze Paresis) - 0(Normal) 3. Visual Field Loss - 0(No visual loss) 4. Facial Palsy - 0(Normal) 5a. Left Arm: Motor (10-second hold) - 0(No drift) 5b. Right Arm: Motor (10-second hold) - 0(No drift) 6a. Left Leg: Motor (5-second hold - always test supine) - 0(No drift) 6b. Right Leg: Motor (5-second hold - always test supine) - 0(No drift) 7. Limb Ataxia (finger/nose \T\ heel/vargas - test with eyes open) - 0(Absent) 8. Sensory Loss (pinprick arms/legs/face) - 0(Normal) 9. Best Language: Aphasia (description/naming/reading) - 0(No aphasia) Initials: lakhwinder Signatures: Dispatcher [employer] EDLola Cooper, FIXED INCOME TRADING VICE PRESIDENT-C FIXED INCOME TRADING VICE PRESIDENT-Ckb Olivia Barbosa Corey, MD MD cha Williams, Irene RN Elvin Root RN RN ll1 Juli Shen, RN RN kb3 Akira Sow, RN RN rg5 Corrections: (The following items were deleted from the chart) 11:21 11:21 BASIC METABOLIC PANEL+C.LAB.BRZ ordered. EDMS EDMS 11:21 11:21 CBC+H.LAB.BRZ ordered. EDMS EDMS 11:21 11:21 HEPATIC FUNCTION+C.LAB.BRZ ordered. EDMS EDMS 11:21 11:21 MAGNESIUM+C.LAB.BRZ ordered. EDMS EDMS 11:21 11:21 PROBNP+C.LAB.BRZ ordered. EDMS EDMS 11:21 11:21 PROTIME (+INR)+COAG.LAB.BRZ ordered. EDMS EDMS 11:21 11:21 Troponin High Sensitivity+C.LAB.BRZ ordered. EDMS EDMS 11:21 11:21 LIPASE+C.LAB.BRZ ordered. EDMS EDMS 11: 11:21 UA Rfx Josh Cult if indicated+U.LAB.BRZ ordered. EDMS EDMS 11:21 11:21 Chest Single View+RAD.RAD.BRZ ordered. EDMS EDMS 14:41 13:51 Telemetry/MedSurg (observation) lakhwinder kb3 14:41 13:51 lakhwinder kb3 18:52 14:41 [facility] ER HOLD kb3 bd 18:52 14:41 ERHOLD- kb3 bd
--- NOTE | 2025-03-01 13:52 | ER ---
Nurse's Notes [facility] Name: Pastora Amador Age: 65 yrs Sex: Female : 1960 Arrival Date: 03/01/2025 Time: 11:13 Bed 27 Private MD: Diagnosis: Chest pain, unspecified;Dizziness and giddiness Presentation: 03/01 11:26 Chief complaint: Patient states: SHE WAS AT THE DR'S OFFICE AND BEGAN HAVING MIDDLE AND dd2 LT SIDED CHEST PAIN, DIZZINESS, SWEATING AND LT ARM NUMBNESS. Coronavirus screen: At this time, the client does not indicate any symptoms associated with coronavirus-19. Ebola Screen: No symptoms or risks identified at this time. Risk Assessment: Do you want to hurt yourself or someone else? Patient reports no desire to harm self or others. Onset of symptoms was March 01, 2025. 11:26 Method Of Arrival: Wheelchair dd2 11:26 Acuity: EDY 2 dd2 11:27 Initial Sepsis Screen: Does the patient have a suspected source of infection? No. iw Patient's initial sepsis screen is negative. 14:54 Initial Sepsis Screen: Does the patient meet any 2 criteria? No. Patient's initial iw sepsis screen is negative. Triage Assessment: 11:26 General: Appears uncomfortable, Behavior is calm, cooperative, appropriate for age. dd2 Pain: Complains of pain in anterior aspect of left upper chest and mid-sternal area. EENT: Reports LT ARM NUMBNESS . Cardiovascular: Reports chest pain, diaphoresis, lightheadedness, DIAPHORESIS . Historical: - Allergies: 11:20 Sulfa (Sulfonamide Antibiotics); ll1 - PMHx: 11:20 chronic back pain; Fibromyalgia; Gout; High Cholesterol; Hypertension; Migraine; ll1 osteoarthritis; Osteoporosis; restless leg syndrome; - PSHx: 11:20 Back Sx 2022; section; Gastric bypass 2021; Gastric bypass revision Jun.06; ll1 Gastric bypass revision Jun.06; Gastric bypass revision Jun.06; hysterectomy; Left shoulder sx; neck sx 2011; right knee meniscus sx; right knee total replacement; - Immunization history:: Adult Immunizations up to date. - Infectious Disease History:: Denies. - Family history:: not pertinent. - Social history:: Smoking status: Patient denies any tobacco usage or history of. Screenin:20 [facility] ED Fall Risk Assessment (Adult) History of falling in the last 3 months, iw including since admission No falls in past 3 months (0 pts) Confusion or Disorientation No (0 pts) Intoxicated or Sedated No (0 pts) Impaired Gait No (0 pts) Mobility Assist Device Used No (0 pt) Altered Elimination No (0 pt) Score/Fall Risk Level 0 - 2 = Low Risk Oriented to surroundings, Maintained a safe environment. Abuse screen: Denies threats or abuse. Denies injuries from another. Nutritional screening: No deficits noted. Tuberculosis screening: No symptoms or risk factors identified. Assessment: 11:31 General: Appears uncomfortable, Behavior is calm, cooperative. Pain: Complains of pain iw in mid-sternal area Pain radiates to anterior aspect of left upper chest and left breast Pain currently is 10 out of 10 on a pain scale. Pain began suddenly, Is continuous. Neuro: Level of Consciousness is awake, alert, obeys commands, Oriented to person, place, time, situation, Moves all extremities. Full function. Cardiovascular: Reports chest pain, diaphoresis, syncope, Capillary refill < 3 seconds in bilateral fingers Rhythm is regular Chest pain is described as severe, is located in left. Respiratory: Respiratory effort is even, unlabored. 12:19 Reassessment: Patient appears in no apparent distress at this time. Patient and/or iw family updated on plan of care and expected duration. Pain level reassessed. 13:09 Reassessment: Patient appears in no apparent distress at this time. Patient and/or hb family updated on plan of care and expected duration. Pain level reassessed. Patient is alert, oriented x 3, equal unlabored respirations, skin warm/dry/pink. 16:44 General: Appears in no apparent distress. comfortable, Behavior is calm, cooperative, rg5 appropriate for age. Pain: Complains of pain in chest. Neuro: Level of Consciousness is awake, alert, obeys commands, Oriented to person, place, time, situation. Neuro: Reports dizziness, headache. Cardiovascular: Reports chest pain. Respiratory: Airway is patent Respiratory effort is even, unlabored, Breath sounds are clear. GI: Reports diarrhea. : No signs and/or symptoms were reported regarding the genitourinary system. EENT: No signs and/or symptoms were reported regarding the EENT system. Derm: Skin is intact, Skin is dry, Skin is normal. Musculoskeletal: Circulation, motion, and sensation intact. Range of motion: intact in all extremities. Vital Signs: 11:27 BP 134 / 67; Pulse 66; Resp 20; Pulse Ox 97% on R/A; Pain 10/10; iw 13:09 BP 130 / 61; Pulse 81; Resp 18; Pulse Ox 99% on R/A; hb 14:08 BP 157 / 89; Pulse 64; Resp 16; Temp 98.2; Pulse Ox 98% on R/A; Weight 75.75 kg (R); iw Pain 6/10; 16:45 BP 145 / 77; Pulse 64; Resp 18; Pulse Ox 100% ; Pain 5/10; rg5 11:27 Pain Scale: Adult iw 14:08 Pain Scale: Adult iw 16:45 Pain Scale: Adult rg5 Mechelle Coma Score: 11:52 Eye Response: spontaneous(4). Motor Response: obeys commands(6). Verbal Response: lakhwinder oriented(5). Total: 15. NIH Stroke Scale Scores: 13:51 NIHSS Score: 0 lakhwinder ED Course: 11:16 Patient arrived in ED. cj3 11:18 [facility]C [facility] kb 11:18 Salvador Douglas MD is Attending Physician. kb 11:19 Salvador Douglas MD is Attending Physician. lakhwinder 11:19 Arm band placed on Patient placed in an exam room, on a stretcher. ll1 11:26 Triage completed. dd2 11:27 Juliana Arroyo, RN is Primary Nurse. iw 11:27 Initial lab(s) drawn, by in, sent to lab. Inserted saline lock: 20 gauge in right iw antecubital area, using aseptic technique. Blood collected. Flushed with 10 mL NS. Patient maintains SpO2 saturation greater than 95% on room air. 12:19 Patient has correct armband on for positive identification. Provided Education on: . iw Client placed on continuous cardiac and pulse oximetry monitoring. NIBP monitoring applied. playground monitor on. 12:47 CT Aorta for Dissection In Process Unspecified. EDMS 13:26 XRAY Chest (1 view) In Process Unspecified. EDMS 13:50 Gerson Jones MD is Hospitalizing Provider. lakhwinder 14:53 No provider procedures requiring assistance completed. Patient admitted, IV remains in iw place. Administered Medications: 11:43 Drug: Aspirin PO Chewable Tablet 324 mg PO once; 81 mg tablets x 4 Route: PO; iw 12:20 Follow up: Response: No adverse reaction iw 11:43 Drug: Famotidine IVP 20 mg IVP once; dilute with 10 mL 0.9% NaCl; give over 2 minutes iw Route: IVP; Site: right antecubital; 12:30 Follow up: Response: No adverse reaction; Pain is unchanged, physician notified iw 11:43 Drug: NS 0.9% IV 1000 ml IV at 1000 ml once; to be given as a bolus over 60 minutes iw Route: IV; Rate: 1000 ml; Site: right antecubital; 15:00 Follow up: IV Status: Completed infusion iw 14:52 Drug: morphine IVP or IV 2 mg IVP once over 4 mins Route: IVP; Infused Over: 4 mins; iw Site: right antecubital; 15:30 Follow up: Response: No adverse reaction; Pain is decreased iw 14:52 Drug: morphine IVP or IV 2 mg IVP once over 4 mins Route: IVP; Infused Over: 4 mins; iw Site: right antecubital; 15:30 Follow up: Response: No adverse reaction; Pain is decreased iw 14:52 Drug: Ondansetron IVP 4 mg IVP once; over 2 minutes Route: IVP; Site: right antecubital;iw 15:30 Follow up: Response: No adverse reaction iw 14:53 Drug: Enoxaparin Sub-Q 1 mg/kg Sub-Q once Route: Sub-Q; Site: right lower abdomen; iw 16:30 Follow up: Response: No adverse reaction iw Medication: 14:53 VIS not applicable for this client. iw Outcome: 13:51 Decision to Hospitalize by Provider. lakhwinder 14:53 Admitted to iw 16:44 Condition: stable rg5 21:04 Patient left the ED. rg5 NIH Stroke Scale - NIH Stroke Score Date: 03/01/2025 Time: 13:51 Total Score = 0 10. Dysarthria (speech clarity - read or repeat words) - 0(Normal) 11. Extinction and Inattention (visual/tactile/auditory/spatial/personal) - 0(No abnormality) 1a. Level of Consciousness (LOC) - 0(Alert) 1b. Level of Consciousness (LOC) (Month \T\ Age) - 0(Both) 1c. LOC Commands (Open \T\ Closes Eyes/Director Financial Analysis) - 0(Both) 2. Best Gaze (Lateral Gaze Paresis) - 0(Normal) 3. Visual Field Loss - 0(No visual loss) 4. Facial Palsy - 0(Normal) 5a. Left Arm: Motor (10-second hold) - 0(No drift) 5b. Right Arm: Motor (10-second hold) - 0(No drift) 6a. Left Leg: Motor (5-second hold - always test supine) - 0(No drift) 6b. Right Leg: Motor (5-second hold - always test supine) - 0(No drift) 7. Limb Ataxia (finger/nose \T\ heel/vargas - test with eyes open) - 0(Absent) 8. Sensory Loss (pinprick arms/legs/face) - 0(Normal) 9. Best Language: Aphasia (description/naming/reading) - 0(No aphasia) Initials: lakhwinder Signatures: Dispatcher [employer] Lola Solorzano, GM-C [employer]-Ckb Salvador Douglas MD MD cha Williams, Irene, RN RN iw Gayatri Dunaway RN RN hb Elvin Machado RN RN ll1 Akira Sow RN RN rg5 DONALDO TORRES RN RN dd2 Catherine Ernst cj3 Corrections: (The following items were deleted from the chart) 14:08 14:08 BP 157 / 89; Pulse 64bpm; Resp 16bpm; Pulse Ox 98% RA; Pain 6/10, Adult; iw iw 14:10 14:08 BP 157 / 89; Pulse 64bpm; Resp 16bpm; Pulse Ox 98% RA; 63.5 kg; Pain iw 6/10, Adult; iw 14:53 14:08 BP 157 / 89; Pulse 64bpm; Resp 16bpm; Pulse Ox 98% RA; 75.75 kg Reported; iw Pain 6/10, Adult; iw
[2025-03-01] MEDS ORDERED: ONDANSETRON 4 MG/2 ML VIAL IV PRN (13:59)
[2025-03-01] MEDS ORDERED: ACETAMINOPHEN 325 MG TABLET PO PRN (14:25)
--- NOTE | 2025-03-01 14:31 | RAD REPORT ---
EXAMINATION: ONE VIEW CHEST XR CLINICAL INDICATION: Female, 65 years old.,CHEST PAIN TECHNIQUE: Frontal chest projection is submitted. Examination is limited by patient positioning and t echnique. COMPARISON: 12/22/2024 FINDINGS: The lungs are well inflated and clear apart from mild central interstitial prominence. No pneumothor ax or sizable effusion. The heart is normal in size. Mediastinal contours are unremarkable. IMPRESSION: Mild central interstitial prominence, could relate to mild central congestion.
[2025-03-01] MEDS ORDERED: ONDANSETRON 4 MG/2 ML VIAL ONE (14:35)
[2025-03-01] MEDS ORDERED: MORPHINE 4 MG/ML SYR ONE (14:35)
[2025-03-01] MEDS ORDERED: ENOXAPARIN 80 MG/0.8 ML SQ ONE (14:35)
[2025-03-01 17:03] VITALS: BMI 32.5
[2025-03-01] MEDS ORDERED: ENOXAPARIN 80 MG/0.8 ML SQ SCH (21:00)
[2025-03-01] MEDS: SACUBITRIL/VALSARTAN 49/51 MG TAB PO SCH (21:23)
[2025-03-01] MEDS: FAMOTIDINE 20 MG/2 ML VIAL IV SCH (21:24)
[2025-03-01 21:28] VITALS: O2SAT 100
[2025-03-02] MEDS: MORPHINE 2 MG/ML SYR IV PRN (00:54)
[2025-03-02 04:45] LABS: Hematocrit 33.9 % (36.0-45.0); Hemoglobin 11.3 g/dL (12.0-15.0); MCH 30.3 pg (27.0-35.0); MCHC 33.3 g/dL (32.0-36.0); MCV 91.1 fL (80-100); MPV 7.7 fL (7.6-11.3); Nucleated Red Blood Cells % 0.0 % (0-0); RBC Red Blood Cell Count 3.72 M/uL (3.86-4.86); White Blood Count 5.60 thou/uL (4.3-10.9)
[2025-03-02 04:46] LABS: Absolute Lymphocytes (CBC) 2.5 K/uL (0.7-4.9); Nucleated RBC Absolute Count 0.0 (0-0)
[2025-03-02 05:01] LABS: Anion Gap 8.5 mEq/L (5.0-15.0); BUN Blood Urea Nitrogen 16.0 mg/dL (7-18); Glucose Level 96.0 mg/dL (74-106); Potassium 4.5 mEq/L (3.5-5.1)
[2025-03-02] MEDS: PANTOPRAZOLE 40MG TABLET PO SCH (06:30)
[2025-03-02] MEDS: carBAMazepine 200 MG TAB PO SCH (07:34)
[2025-03-02 08:13] VITALS: BP 167/83; TEMP 98.2
[2025-03-02] MEDS: METOPROLOL XL 25 MG TAB PO SCH (08:47)
[2025-03-02] MEDS: GABAPENTIN 300 MG CAP PO SCH (08:47)
[2025-03-02] MEDS: DULOXETINE 30 MG CAP PO SCH (08:47)
--- NOTE | 2025-03-02 08:47 | HP ---
Date of Admission: 03/01/2025 Chief Complaint: Sweating and chest pain. History Of Present Illness: This is a 65-year-old female patient, who was at the office of her rheum atologist today and this was around 11 o'clock this morning and all of a sudden, the patient started to have profuse sweating to the extent that her clothes were wet and retort engineer immediately asked her to come to emergency room. The patient was complaining of some chest pain along with this. She denies any nausea, vomiting. She has chronic problem with diarrhea. She did eat her breakfast this morning as she reports. After she came to emergency room, she felt better, was evaluated by ER rohit mata, and I was contacted requesting admission. I saw her in the emergency room. Her was w ith her at bedside. Allergies: TO SULFA. Medications: List reviewed. Review of Systems: Constitutional: As mentioned above. Cardiovascular: As mentioned above. All other systems reviewed and negative. Past Medical History: Significant for chronic diastolic heart failure, hypertension, hyperlipidemia, anemia, hyponatremia, gastroesophageal reflux disease, leg edema, restless legs syndrome, peripheral neuropathy, bilateral carpal tunnel syndrome, obstructive sleep apnea, chronic diastolic heart failu re, osteoarthritis at multiple sites, gout, insomnia. Also past medical history significant for oste openia. Past Surgical History: Gastric bypass surgery on June 06, 2022. Weight prior to her gastric byp ass surgery was 277 pounds. Also significant for , hysterectomy, shoulder surgery on the le ft shoulder on February 24, 2023, bilateral carpal tunnel release. Family History: Father , had congestive heart failure, dementia, hypertension, stroke, COPD. Mo ther , had congestive heart failure, hypertension, and osteoarthritis. Brother has osteoarthriti s. Sister has COPD. Social History: Negative for smoking and alcohol use. Physical Examination: Vital Signs: Temperature 98, pulse 63, respiratory rate 17, blood pressure 145/77, oxygen saturation 100%. Height 5 feet, weight 167 pounds. General: Awake, alert, oriented, not in distress. HEENT: Head atraumatic, normocephalic. Conjunctivae nonerythematous. Sclerae white. Mouth, no thr ush or edema noted. Ears/Nose, no mass, lesion, discharge noted. Neck: Supple. No JVD, lymph nodes, bruit, thyromegaly noted. Lungs: Bilateral good equal air entry. Clear to auscultation. No rhonchi. No rales. Heart: Normal heart sounds, no murmur or gallop. Abdomen: Soft, bowel sounds normal. No guarding, rigidity, tenderness, mass, hepatosplenomegaly, dis tention, or bruit noted. Extremities: No leg edema. No calf tenderness. Skin: No rash, ulcer, cellulitis. Lymphatics: No lymph node enlargement in neck, supraclavicular, infraclavicular region. Neuro: No focal neurological deficit. Chest: Unremarkable. External Genitalia: Deferred. Rectal: Deferred. Laboratory Data: WBC 7.8, hemoglobin 12, platelets 345. Sodium 141, potassium 3.6, chloride 108, bi carb 25, BUN 16, creatinine 1.11, glucose 76. Liver function tests normal. First troponin 11. Seco nd troponin 13. ProBNP 1009. Lipase 27. Chest x-ray shows mild central interstitial prominence. C AT scan per dissection protocol showed no evidence of any thoracic or abdominal aortic aneurysm or di ssection. EKG, no acute ST-T changes. Impression: 1. Chest pain. 2. Rule out hypoglycemia. 3. Hypertension. 4. Hyperlipidemia. 5. Chronic diastolic heart failure. 6. Obstructive sleep apnea. Plan: We will go ahead and admit the patient to hospital for further evaluation and management of th is problem. The patient will be admitted to the hospital for observation. Chest pain appears to be atypical in nature. We will go ahead and see her again tomorrow morning. Once IN is ruled out, plan is to discharge her to go home. She sees medical staff services manager in [place] on a regular outpatient basis and she was encouraged to follow up with the medical staff services manager soon after her discharge and she actually has a ppointment within next 2 weeks or so. Her episode of sweating more concerned about hypoglycemia. Emil blue came in with blood glucose of 76 on the blood work when she first came into the hospital. She does not have any diagnosis of diabetes. She does not take any hypoglycemic medication, but in view of h er prior gastric bypass surgery, I would worry about such possible complication and we will provide a ppropriate instruction to her regarding diet instruction and how to avoid possibility of hypoglycemia . Meanwhile for her hypertension, continue antihypertensive medications per order. For hyperlipidem ia, no need for further intervention at this time. Her other usual home medications will be continue d and I will see her tomorrow morning for followup. Details and plan of treatment discussed with the patient and her who was at bedside. Total time spent 60 minutes including review of last office visit record from 01/04/2025, communicati on with emergency room physician, review of emergency room visit record, and performing today's evalu ation and management. GERRY/MODAshwini Voice ID: [id number]
[2025-03-02] MEDS: SPIRONOLACTONE 25 MG TABLET PO SCH (08:48)
[2025-03-02] MEDS: ASPIRIN EC 81 MG TAB PO SCH (08:48)
--- NOTE | 2025-03-03 05:42 | DS ---
Date of Discharge: 03/02/2025 Disposition: Discharged to go home. Physical Examination: HEENT: Unremarkable. Lungs: Clear to auscultation. Heart: Sounds normal. Abdomen: Soft. Bowel sounds normal. No guarding, rigidity, tenderness, distention. Extremities: No leg edema. Laboratory Data: Upon admission, , . Today, WBC 5.6, hemoglobin 11.3, platelets 273. Sodium 144, potassium 4.5, chloride 112, bicarb 28, BUN 16, creatinine 0.90, glucose 96. Trop onin first set 11, second set 13, and third set 12.3. Discharge Diagnoses: 1. . 2. . Discharge Medications: 1. . 2. . Hospital Course: A 65-year-old pleasant female patient who was admitted to the hospital with complai nts of chest pain and sweating. Please see dictated H and P for more information. After patient was evaluated in the ER, she was admitted to the hospital. Overnight, her condition remained stable. M I was ruled out. This morning, she was asymptomatic, clinically stable and I have discharged her to go home with instruction to follow up with her sfdc technical architect on outpatient basis as well as follow up in of [facility]. GERRY/MODL Voice ID: [id number] Report ID: [id number]
== END 2025-03-02 10:22 | disposition home or self-care (01) ==
LOC: ER 11:13 → ERHOLD 13:55 → 4TH 19:37
PROVIDERS: ADMIT Internal Medicine; ATTEND Internal Medicine
DX: R07.9 Chest pain, unspecified (principal); I50.32 Chronic diastolic (congestive) heart failure; I10 Essential (primary) hypertension; E78.5 Hyperlipidemia, unspecified; D64.9 Anemia, unspecified; E87.1 Hypo-osmolality and hyponatremia; G47.33 Obstructive sleep apnea (adult) (pediatric)
CPT/HCPCS: 96361; 93005 ×2; 85025 ×2; 80048 ×2; 36415; 83735; 85610; 80076; 84484 ×3; 83690; 83880; 71275; 74175; 71045; 96375; 96372; 96374; 99285; Q9967; J1650; J2270; J2405; J7030; G0378 ×4